=== PATIENT | male | born 2000 | race Caucasian/White ===

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

== ENCOUNTER 2023-02-14 22:10 | Inpatient (IN) ==
[2023-02-14 22:33] LABS: Appearance Urine Clear (Clear); Bilirubin Urine Negative (Negative); Blood Urine Negative (Negative); Color Urine Yellow; Glucose Urine UA Negative (Negative); Ketones Urine Negative (Negative); Leukocyte Esterase Urine Negative (Negative); Nitrite Urine Negative (Negative); Protein Urine Negative (Negative); Specific Gravity Urine 1.008 (1.000-1.030); Urobilinogen Urine Negative (Negative); pH Urine 6.5 (4.5-7.5)
--- NOTE | 2023-02-14 22:36 | Emergency Department Note ---
Impression & Plan Anxiety and depression, Autism spectrum disorder ED Provider Note NAME: ROMANA PEACOCK AGE: 23 SEX: M : 2000 ARRIVES VIA: Walk-In INFORMANT: Patient, ED PROVIDER(S): Moises Galan MD CHIEF COMPLAINT: Depressed mood, suicidal ideation MEDICAL DECISION MAKING: Patient presents due to concern for depressed mood and suicidal ideation with a plan to possibly hang himself. Blood work was obtained patient was he medically cleared referrals and the patient was admitted to 3 S. Patient had already received his Abilify prior to arrival does not require any additional meds this evening. Discussion w/ other healthcare providers: GEN with case management Prior /Outside records reviewed: I reviewed a primary care visit from September 06, 2021 from Brant Amaral. Patient does have a known history of autism spectrum disorder anxiety depression and ADHD. Differential diagnosis: Mood disorder, infection, hypoglycemia, electrolyte abnormalities, dehydration, medication side effect among others were considered. Diagnostics, as interpreted by me: ECG: None Medical decision rules: Suicide risk severity score Imaging studies: None HPI: Patient presents with family member due to concern for suicidal ideation with plan. The patient has had thoughts of self-harm including potentially hanging himself. The patient did recently turning 23 has had some alcohol this evening. Patient denies any HI or AVH. Patient is currently compliant with his medications. The patient did take his Abilify this evening. The patient would like inpatient treatment. Patient denies any chest pains or shortness of breath no abdominal pain or nausea vomiting. PAST MEDICAL HISTORY: See Below PAST SURGICAL HISTORY: See Below SOCIAL HISTORY: See Below HOME MEDICATIONS: See Below ALLERGIES: See Below VITALS: See Below PHYSICAL EXAMINATION: GENERAL: NAD, non-toxic. EYE EXAM: Normal conjunctiva. PERRL, no anisocoria and EOM's grossly intact w/o pain. OROPHARYNX: Moist mucus membranes, grossly normal dentition. NECK: Supple, no nuchal rigidity, no adenopathy, non-tender. No signs of meningismus. FROM of the neck with good chin to chest and neck extension. No stridor. LUNGS: Clear to auscultation. Normal chest wall mechanics. HEART: NSR, no MRG. ABDOMEN: Abdomen soft, non-tender, no masses, no rebound or guarding. BACK: No CVA TTP. SKIN: No rashes and no bruising. UPPER EXTREMITIES: Upper extremities are grossly normal. LOWER EXTREMITIES: Grossly normal, no edema. NEURO EXAM: A&O x3, cranial nerves II-XII grossly intact, normal speech, moves all 4 extremities. Psych: Positive SI with plan denies HI or AVH. Past Med/Surg History Medical History Depression Autism Surgical History History of lingual frenotomy History of wisdom tooth extraction, class I edentulism Family History Father Hypertension Dyslipidemia Mother Asthma Other Myocardial infarction Denies family history of Ovarian cancer Prostate cancer Breast cancer Colorectal cancer Social History Smoking Status: Current every day smoker Tobacco Type: Cigarettes Second Hand Exposure: No; Hx Alcohol Use: No Hx Substance Use: Yes (PRN prescribed) Prescribed Medications: Marijuana Preferred Language: Faroese Communication Ability: Effective Visual Impairment: Limited Hearing Ability: Normal Lock Installer Required: No Beliefs That Will Affect Care: None marital status: Single Current Living Situation: Family Current Living Situation Comment: parents and sister current occupational status: unemployed Feels Safe at Home: Yes Childhood Exposure to Second-Hand Smoke: Yes Diet: regular Dental Care, Regularly: Yes Physical Activity Frequency: 3-4 Times per Week Physical Activity Frequency Comment: biking and walking Seatbelt Use: always Sunscreen Use: Yes (sometimes) Gender Identity: Male Assistive Devices: Glasses Allergies Allergies Allergy/AdvReac Type Severity Reaction Status Date / Time No Known Allergies Allergy Verified 02/14/23 23:55 Home Meds Home Medications Medication Instructions Recorded Confirmed venlafaxine 75 mg capsule,extended 75 mg PO DAILY 12/26/22 02/14/23 release 24 hr bupropion HCl 150 mg tablet,12 hr 150 mg PO DAILY 02/14/23 02/14/23 sustained-release lamotrigine 25 mg tablet (Lamictal) 50 mg DAILY 02/14/23 02/15/23 aripiprazole 5 mg tablet See Rx Instructions .Route .COMPLEX 02/15/23 02/15/23 dextroamphetamine-amphetamine ER 10 mg PO DAILY 02/15/23 02/15/23 10 mg 24hr capsule,extend release (Adderall XR) Results & Data (ED) Vital Signs Vital Signs - 24 hr 02/14/23 22:12 Temperature 36.8 C Temperature Source Temporal Artery Scan Pulse Rate 119 H Pulse Rhythm Regular Pulse Strength Normal Respiratory Rate 20 Respiratory Effort / Characteristics Non-Labored Spontaneous Respiratory Depth Normal Blood Pressure 144/86 H Blood Pressure Mean 105 Blood Pressure Position Sitting Pulse Oximetry 100 Oxygen Delivery Method Room Air Sepsis Recent Fever Within 48 Hours No Sepsis New/Unexplained Change in Mental Status No Sepsis Action Taken by Nursing No Action Required Home Medications Current Medication List: was personally reviewed by me Laboratory Data Attestation: I reviewed the patient's lab results. 02/14/23 22:35 02/14/23 22:35 Lab Results 02/14/23 02/14/23 02/14/23 Range/Units 22:20 22:33 22:35 WBC 6.67 (4.8-10.8) K/ul RBC 5.04 (4.70-6.10) M/uL Hgb 15.8 (14.0-18.0) g/dl Hct 44.3 (42.0-52.0) % MCV 87.9 (80.0-100.0) fL MCH 31.3 (25.0-34.0) pg MCHC 35.7 (32.0-36.0) g/dL RDW Std Deviation 36.7 (36.4-46.3) fL RDW Coeff of Shantell 11.5 (11.5-14.5) % Plt Count 263 (130-400) K/uL MPV 9.6 (9.4-12.4) fL Immature Gran % (Auto) 0.3 % Neut % (Auto) 60.6 % Lymph % (Auto) 29.5 % Ada % (Auto) 6.6 % Eos % (Auto) 2.4 % Baso % (Auto) 0.6 % Neut # (Auto) 4.04 (1.40-6.50) K/uL Lymph # (Auto) 1.97 (1.20-3.40) K/uL Ada # (Auto) 0.44 (0.11-0.59) K/uL Eos # (Auto) 0.16 (0.00-0.50) K/uL Baso # (Auto) 0.04 (0.00-0.20) K/uL Immature Gran # (Auto) 0.02 (0.01-0.20) K/uL Sodium 140 (136-145) mmol/L Potassium 3.5 (3.5-5.1) mmol/L Chloride 105 (98-107) mmol/L Carbon Dioxide 28 (21-32) mmol/L Anion Gap 7 (3-11) BUN 10 (6-23) mg/dl Creatinine 0.97 (0.6-1.4) mg/dl Est Cr Clr Drug Dosing 124.4 ml/min Est GFR ( Amer) 128.8 ml/min Est GFR (Non-Af Amer) 111.1 ml/min BUN/Creatinine Ratio 10.3 (10-20) Glucose 110 H (70-99(Fasting)) mg/dl Calcium 9.5 (8.6-10.3) mg/dl Total Bilirubin 0.5 (0.2-1.0) mg/dl AST 16 (13-39) U/L ALT 14 (7-52) U/L Alkaline Phosphatase 86 (34-104) U/L Total Protein 7.5 (6.0-8.3) gm/dl Albumin 5.0 (3.4-5.0) gm/dl Globulin 2.5 (2.5-4.0) gm/dl Albumin/Globulin Ratio 2.0 (0.9-2) TSH 3.173 (0.300-4.500) uIu/ml Urine Color Yellow Urine Appearance Clear (Clear) Urine pH 6.5 (4.5-7.5) Ur Specific [place] 1.008 (1.000-1.030) Urine Protein Negative (Negative) Urine Glucose (UA) Negative (Negative) Urine Ketones Negative (Negative) Urine Blood Negative (Negative) Urine Nitrite Negative (Negative) Urine Bilirubin Negative (Negative) Urine Urobilinogen Negative (Negative) Ur Leukocyte Esterase Negative (Negative) Salicylates < 3.0 L (3.0-30) mg/dl Urine Opiates Screen Neg (Neg) Ur Methadone, Qual Neg (Neg) Acetaminophen < 3 L (10-30) ug/ml Urine Barbiturates Neg (Neg) Ur Phencyclidine (PCP) Neg (Neg) U Amphetamin/Meth Scrn Neg (Neg) MDMA (Ecstasy) Screen Neg (Neg) U Benzodiazepines Scrn Neg (Neg) Ur Cocaine Metabolite Neg (Neg) U Marijuana (THC) Screen Neg (Neg) Ethyl Alcohol mg/dL < 10.0 (<10.0) mg/dl SARS-CoV-2, RNA, NAAT NEGATIVE (NEGATIVE) Administered Medications Amphetamine/Dextroamphetamine (Dextroamphetamine/Amphetamine Er 10 Mg Cap) 10 mg PO DAILY [facility] Stop: 03/01/23 10:29 Last Admin: 02/15/23 10:55 Dose: 10 mg Documented By: EVERETT Lamotrigine (Lamotrigine 25 Mg Tab) 50 mg PO DAILY [facility]; Protocol Stop: 03/17/23 10:14 Last Admin: 02/15/23 11:52 Dose: 50 mg Documented By: EVERETT Miscellaneous (Remove Nicoderm Patch) 1 each N/A DAILY@0859 [facility] Stop: 03/17/23 08:58 Last Admin: 02/15/23 09:13 Dose: 1 each Documented By: EVERETT Nicotine (Nicotine 21 Mg/24 Hr Tdsy) 21 mg TD QAM [facility] Stop: 03/17/23 08:59 Last Admin: 02/15/23 09:13 Dose: 21 mg Documented By: EVERETT Nicotine Polacrilex (Nicotine Polacrilex 2 Mg Gum) 1 - 2 piece MT PRN PRN PRN Reason: cravings Stop: 03/17/23 09:08 Last Admin: 02/15/23 17:37 Dose: 2 piece Documented By: Admin: 02/15/23 14:17 Dose: 2 piece Documented By: Admin: 02/15/23 10:10 Dose: 2 piece Documented By: EVERETT Venlafaxine HCl (Venlafaxine Hcl Xr 75 Mg Capxr) 75 mg PO DAILY [facility] Stop: 03/17/23 10:09 Last Admin: 02/15/23 11:52 Dose: 75 mg Documented By: EVERETT Discontinued Medications Nicotine (Nicotine 21 Mg/24 Hr Tdsy) 21 mg TD NOW STA Stop: 02/15/23 00:49 Last Admin: 02/15/23 00:57 Dose: 21 mg Documented By: DEREK Discharge Plan Visit Data Chief Complaint: Mental Health Evaluation Stated Complaint: SUICIDAL THOUGHTS ED Provider: Moises Galan Discharge Problem: Anxiety and depression, Autism spectrum disorder Patient Disposition: Admitted As Inpatient Discharge Instructions Interventions: ED Discharge Assessment Last Done: 02/15/23 02:05
[2023-02-14 22:53] LABS: Basophils # (auto) 0.04 K/uL (0.00-0.20); Basophils % (auto) 0.6 %; Eosinophils # (auto) 0.16 K/uL (0.00-0.50); Eosinophils % (auto) 2.4 %; Hematocrit (blood only) 44.3 % (42.0-52.0); Hemoglobin 15.8 g/dl (14.0-18.0); Immature Granulocytes # (auto) 0.02 K/uL (0.01-0.20); Immature Granulocytes % (auto) 0.3 %; Lymphocytes # (auto) 1.97 K/uL (1.20-3.40); Lymphocytes % (auto) 29.5 %; Mean Corpuscular Hemoglobin 31.3 pg (25.0-34.0); Mean Corpuscular Hgb Conc 35.7 g/dL (32.0-36.0); Mean Corpuscular Volume 87.9 fL (80.0-100.0); Mean Platelet Volume 9.6 fL (9.4-12.4); Monocytes # (auto) 0.44 K/uL (0.11-0.59); Monocytes % (auto) 6.6 %; Neutrophils # (auto) 4.04 K/uL (1.40-6.50); Neutrophils % (auto) 60.6 %; Platelet Count 263 K/uL (130-400); RDW Coefficient of Variation 11.5 % (11.5-14.5); RDW Standard Deviation 36.7 fL (36.4-46.3); Red Blood Count 5.04 M/uL (4.70-6.10); White Blood Count 6.67 K/ul (4.8-10.8)
[2023-02-14 23:03] LABS: Amphetamines+Metham, Urine Neg (Neg); Barbiturates, Urine Neg (Neg); Benzodiazepine, Urine Neg (Neg); Cocaine, Urine Neg (Neg); MDMA (Ecstacy), Urine Neg (Neg); Marijuana, Urine Neg (Neg); Methadone, Urine Neg (Neg); Opiate, Urine Neg (Neg); Phencyclidine, Urine Neg (Neg)
[2023-02-14 23:10] LABS: BUN Creatinine Ratio 10.3 (10-20); Bilirubin,Total 0.5 mg/dl (0.2-1.0); Calcium 9.5 mg/dl (8.6-10.3); Creatinine Clr Calc Pharmacy 124.4 ml/min; Est GFR (African American) 128.8 ml/min; Est GFR (Non-African American) 111.1 ml/min; Globulin 2.5 gm/dl (2.5-4.0); Potassium 3.5 mmol/L (3.5-5.1); Total Protein 7.5 gm/dl (6.0-8.3)
[2023-02-14 23:11] LABS: Acetaminophen < 3 ug/ml (10-30); Salicylate < 3.0 mg/dl (3.0-30)
[2023-02-14 23:24] LABS: Thyroid Stimulating Hormone 3.173 uIu/ml (0.300-4.500)
[2023-02-15] MEDS ORDERED: NICOTINE 21 MG/24 HR TDSY TD STA (00:48)
[2023-02-15] MEDS ORDERED: BISMUTH SUBSALICYLATE LIQD 236 ML PO PRN (02:36)
[2023-02-15] MEDS ORDERED: hydrOXYzine HCl 25 MG TAB PO PRN (02:36)
[2023-02-15] MEDS ORDERED: MAGNESIUM HYDROXIDE SUSP 30 ML UDC PO PRN (02:36)
[2023-02-15] MEDS ORDERED: SODIUM CHLORIDE 0.65% NA SOLN 45 ML (OCEAN) PRN (02:36)
[2023-02-15] MEDS ORDERED: ALUMINUM/MAGNESIUM SUSP 30 ML UDC PO PRN (02:36)
[2023-02-15] MEDS ORDERED: ACETAMINOPHEN 325 MG TAB PO PRN (02:36)
[2023-02-15] MEDS: NICOTINE 21 MG/24 HR TDSY TD SCH (09:13)
[2023-02-15] MEDS: NICOTINE POLACRILEX 2 MG GUM MT PRN ×3 (10:10→17:37)
[2023-02-15] MEDS: DEXTROAMPHETAMINE/AMPHETAMINE ER 10 MG CAP PO SCH (10:55)
--- NOTE | 2023-02-15 11:21 | History & Physical ---
Date of Service February 15, 2023 Impression / Recommendations Impression 23 yo male with a history of depression, primarily in response to social isolation from longstanding autism diagnosis. He was recently started on a trial of Lamictal with a plan to taper Abilify which he has probably taken for at least 5 years and retrial of stimulant. Venlafaxine taper reportedly halted in favor of ongoing adjustment of Wellbutrin. Overall, I spent a total of 58 minutes with this case, including review of chart, review of records, direct evaluation of the patient, counseling the patient, ordering medication, coordination with nursing, risk assessment, and documentation. (1) Autism spectrum disorder: (2) ADHD: (3) Major depression, recurrent: Plan The patient was admitted to the [facility] ([facility] unit) on q15 min checks (behavioral with suicide precautions) for safety. The patient will participate in group, recreational, and milieu therapies and will be offered additional individual and family sessions as clinically appropriate. The patient desires to continue his current medication and voiced that although mother not official guardian would like her input on any changes. Given time this am, will only receive Adderall XR 10 mg this am rather than the Adderall XR 10 mg qam and Adderall 5 mg qafternoon (prescribed 02/14 but not yet started as outpatient). His Abilify dose is currently 2.5 mg am and 5 mg hs, will continue hs dose with plan to expeditite taper since inpatient Lamictal 50 mg is too early to titrate I'd favor further decrease in venlafaxine XR in favor of Wellbutrin titration but will defer to Dr. Peralta as [facility] clinician. Currently awaiting input from mother and Dr. Peralta may have access to records despite holiday. Inventory Assets Strengths: voluntary, foley with mother Needs: improve coping skills and social activities. Suicide Risk Level Suicide Risk Level: High-Moderate (q15 min suicide checks) Risk Factors Assessment Male: Yes : Yes Do You Have Access To A Gun?: No Mental Health Diagnoses: Yes Substance Use Disorders: No Previous Attempt: No Previous Psychiatric Hospitalization: Yes Protective Factors Assessment Employed: No Supportive Family: Yes Good Rapport with Provider: Yes Psychiatric History Identifying Data ROMANA PEACOCK is a 23-year-old M who currently lives in [place] with family, has a history of autism spectrum disorder (ASD), ADHD, depressive and anxiety disorders, and was admitted on 02/15/23 01:37 on a 201 voluntary commitment for SI. Chief Complaint "I just feel down." History of Present Illness Patient appears withdrawn with minimal eye contact. He reports an overall increase in suicidal thoughts since April when he thought about leaving his house and crashing the car. He was hospitalized last month at the [facility] and recalls feeling somewhat unsafe there due to other patient's fighting. He denies sensory concerns and did not elablorate on other symptoms related to his autism other than it is difficult to make friends. His high school friends won't respond to his messages. He used to work for [employer] but didn't like it and seems to have limited interests at home. His outpatient prescriber (Chantale Zaragoza) has continued to adujust his outpatient medications. He denies medication related side effects other than weight gain from Abilify. He denies worsening of mood on stimulant and identified that "it does help." He will not elaborate further re: his suicidal ideation, states he feels fine here but can't "get out of it at home" if mother at work. His lamical was started around 01/27, no rash and dose was increased as scheduled to 50 mg. He failed venlafaxine taper at [facility]. He is relatively unmotivated, he denied sleep concerns. Past Psychiatric History Previous Psych History: Asperger's (ASD), major depressive disorder, ADHD, anxiety Current Psychiatric Diagnosis: MDD Outpatient Services: [facility], reportedly on waitlist for CM with [facility]. Previous Psych Admissions: [facility] X2 (2017 and 2022) for depression with SI. Do You Have Access To A Gun?: No History of Previous Suicide Attempt: No Past Medication Trials: outpatient provider closed for holiday, per review hospital ED visits/records note: Abilify, bupropion, hydroxyzine, Lexapro, vistaril, Zoloft, prior trial of Adderall XR (2018) Additional Notes: was seen by caridology in past for weight, hypertension (on lisinopril at that time), with cardiac work up. No known cardiac abnormalities/contraindications to stimulant. Past Head Trauma/Neuro History History of Concussion/Seizure: No Allergies Allergy/AdvReac Type Severity Reaction Status Date / Time No Known Allergies Allergy Verified 02/14/23 23:55 Home Medications Medication Instructions Recorded Confirmed Type venlafaxine 75 mg capsule,extended 75 mg PO DAILY 12/26/22 02/14/23 History release 24 hr bupropion HCl 150 mg tablet,12 hr 150 mg PO DAILY 02/14/23 02/14/23 History sustained-release lamotrigine 25 mg tablet (Lamictal) 50 mg DAILY 02/14/23 02/15/23 History aripiprazole 5 mg tablet See Rx Instructions .Route .COMPLEX 02/15/23 02/15/23 History dextroamphetamine-amphetamine ER 10 mg PO DAILY 02/15/23 02/15/23 History 10 mg 24hr capsule,extend release (Adderall XR) Family History Family History of: Doesn't Know Alcohol History Hx of Alcohol Use Over the Past 12 Months: Yes (just turned 23) AUDIT Total Score: 1 Smoking Use Have You Smoked or Used Tobacco Products in the Last 30 Days: Yes tobacco type: cigarettes Smoking Status: Current every day smoker Smoking packs per day: 1 Substance History Hx of Prescription Med Misuse Over the Past 12 Months: No Hx of Over the Counter Med Misuse Over the Past 12 Months: No Hx of Inhalent Misuse Over the Past 12 Months: No Hx of Organic Substance Use Over the Past 12 Months: No Hx of Illegal Substances/Street Drug Use Over Past 12 Months: No Problems as a Result of Past Substance Use: None Identified Personal History Living Arrangements: Home Childhood: 1 younger sister (14) Highest Grade Completed: High School Graduate Employment Status: Unemployed (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 disability) Marital Status: Single Number Of Children: 0 Beliefs That Will Affect Care: None Current Legal Problems: No Hx Traumatic Life Events: No Patient History Medical History Depression Autism Surgical History History of lingual frenotomy History of wisdom tooth extraction, class I edentulism Family History Father Hypertension Dyslipidemia Mother Asthma Other Myocardial infarction Denies family history of Ovarian cancer Prostate cancer Breast cancer Colorectal cancer Social History Smoking Status: Current every day smoker Tobacco Type: Cigarettes Second Hand Exposure: No; Hx Alcohol Use: No Hx Substance Use: Yes (PRN prescribed) Prescribed Medications: Marijuana Preferred Language: Montserratian Communication Ability: Effective Visual Impairment: Limited Hearing Ability: Normal Patient Placement Coordinator Required: No Beliefs That Will Affect Care: None marital status: Single Current Living Situation: Family Current Living Situation Comment: parents and sister current occupational status: unemployed Feels Safe at Home: Yes Childhood Exposure to Second-Hand Smoke: Yes Diet: regular Dental Care, Regularly: Yes Physical Activity Frequency: 3-4 Times per Week Physical Activity Frequency Comment: biking and walking Seatbelt Use: always Sunscreen Use: Yes (sometimes) Gender Identity: Male Assistive Devices: Glasses Review of Systems Review of Systems: All systems reviewed & are unremarkable except as noted in HPI & below Physical Exam Psychiatric: Orientation: alert and oriented x 3 Apperance: appropriately dressed and appropriately groomed Eye Contact: + poor eye contact Motor Behavior: no abnormal motor movements Speech: + abnormal rate/rhythm/volume of speech nonspontaneous Affect: + depressed affect Mood: + depressed mood Thought Process: + concrete thought process Thought Content: reality based without delusions Suicidal Thoughts: denies suicidal plan (on unit) and denies suicidal intent; + reports suicidal thoughts Homicidal Thoughts: denies homicidal thoughts Hallucinations: no auditory hallucinations and no visual hallucinations Cognition: attention grossly intact and language grossly intact Estimated Intelligence: consistent with education level Insight: + limited insight Judgment: + limited judgement Vital Signs (Past 24 Hours): Last Vital Signs Temp 36.6 C 02/15/23 06:25 Pulse 94 H 02/15/23 06:25 Resp 16 02/15/23 06:25 BP 126/70 02/15/23 06:25 Pulse Ox 99 02/15/23 06:25 O2 Del Method Room Air 02/15/23 06:25 Exam Statement: A physical exam was performed in the ED by Dr. Soto for the purposes of medical clearance. I accept that physical as correct and adequate for the purposes of the inpatient physical exam. Results & Data ([facility]) Laboratory Results Laboratory Results - last 24 hr 02/14/23 02/14/23 02/14/23 22:20 22:33 22:35 WBC 6.67 RBC 5.04 Hgb 15.8 Hct 44.3 MCV 87.9 MCH 31.3 MCHC 35.7 RDW Std Deviation 36.7 RDW Coeff of Shantell 11.5 Plt Count 263 MPV 9.6 Immature Gran % (Auto) 0.3 Neut % (Auto) 60.6 Lymph % (Auto) 29.5 [place] % (Auto) 6.6 Eos % (Auto) 2.4 Baso % (Auto) 0.6 Neut # (Auto) 4.04 Lymph # (Auto) 1.97 [place] # (Auto) 0.44 Eos # (Auto) 0.16 Baso # (Auto) 0.04 Immature Gran # (Auto) 0.02 Sodium 140 Potassium 3.5 Chloride 105 Carbon Dioxide 28 Anion Gap 7 BUN 10 Creatinine 0.97 Est Cr Clr Drug Dosing 124.4 Est GFR ( Amer) 128.8 Est GFR (Non-Af Amer) 111.1 BUN/Creatinine Ratio 10.3 Glucose 110 H Calcium 9.5 Total Bilirubin 0.5 AST 16 ALT 14 Alkaline Phosphatase 86 Total Protein 7.5 Albumin 5.0 Globulin 2.5 Albumin/Globulin Ratio 2.0 TSH 3.173 Urine Color Yellow Urine Appearance Clear Urine pH 6.5 Ur Specific [place] 1.008 Urine Protein Negative Urine Glucose (UA) Negative Urine Ketones Negative Urine Blood Negative Urine Nitrite Negative Urine Bilirubin Negative Urine Urobilinogen Negative Ur Leukocyte Esterase Negative Salicylates < 3.0 L Urine Opiates Screen Neg Ur Methadone, Qual Neg Acetaminophen < 3 L Urine Barbiturates Neg Ur Phencyclidine (PCP) Neg U Amphetamin/Meth Scrn Neg MDMA (Ecstasy) Screen Neg U Benzodiazepines Scrn Neg Ur Cocaine Metabolite Neg U Marijuana (THC) Screen Neg Ethyl Alcohol mg/dL < 10.0 SARS-CoV-2, RNA, NAAT NEGATIVE Current Inpatient Medications Current Inpatient Medications: Current Inpatient Medications Acetaminophen (Acetaminophen 325 Mg Tab) 650 mg PO Q4H PRN PRN Reason: Headache or Minor Fever Stop: 03/17/23 02:35 Al Hydrox/Mg Hydrox/Simethicone (Aluminum/Magnesium Susp 30 Ml Udc) 30 ml PO Q4H PRN PRN Reason: GI Upset Stop: 03/17/23 02:35 Amphetamine/Dextroamphetamine (Dextroamphetamine/Amphetamine Er 10 Mg Cap) 10 mg PO DAILY [facility] Stop: 03/01/23 10:29 Last Admin: 12/23/23 10:55 Dose: 10 mg Aripiprazole (Aripiprazole 5 Mg Tab) 5 mg PO HS [facility] Stop: 03/17/23 21:59 Bismuth Subsalicylate (Bismuth Subsalicylate Liqd 236 Ml) 15 ml PO PRN PRN PRN Reason: Loose Stool Stop: 03/17/23 02:35 Bupropion HCl (Bupropion Xl 150 Mg Tabcr) 150 mg PO QAM [facility] Stop: 03/18/23 08:59 Hydroxyzine HCl (Hydroxyzine Hcl 25 Mg Tab) 50 mg PO HSZ PRN PRN Reason: Insomnia Stop: 03/17/23 02:35 Hydroxyzine HCl (Hydroxyzine Hcl 25 Mg Tab) 25 mg PO Q4H PRN PRN Reason: Anxiety Stop: 03/17/23 02:35 Lamotrigine (Lamotrigine 25 Mg Tab) 50 mg PO DAILY [facility]; Protocol Stop: 03/17/23 10:14 Magnesium Hydroxide (Magnesium Hydroxide Susp 30 Ml Udc) 30 ml PO DAILY PRN PRN Reason: Constipation Stop: 03/17/23 02:35 Miscellaneous (Remove Nicoderm Patch) 1 each N/A DAILY@0859 [facility] Stop: 03/17/23 08:58 Last Admin: 02/15/23 09:13 Dose: 1 each Nicotine (Nicotine 21 Mg/24 Hr Tdsy) [facility] Stop: 03/17/23 08:59 Last Admin: 02/15/23 09:13 Dose: 21 mg Nicotine Polacrilex (Nicotine Polacrilex 2 Mg Gum) 1 - 2 piece MT PRN PRN PRN Reason: cravings Stop: 03/17/23 09:08 Last Admin: 02/15/23 10:10 Dose: 2 piece Sodium Chloride (Sodium Chloride 0.65% Na Soln 45 Ml ([place])) 1 - 2 sprays NA PRN PRN PRN Reason: Nasal Dryness/Congestion Stop: 03/17/23 02:35 Venlafaxine HCl (Venlafaxine Hcl Xr 75 Mg Capxr) 75 mg PO DAILY [facility] Stop: 03/17/23 10:09
[2023-02-15] MEDS: lamoTRIgine 25 MG TAB PO SCH (11:52)
[2023-02-15] MEDS: VENLAFAXINE HCL XR 75 MG CAPXR PO SCH (11:52)
[2023-02-15] MEDS ORDERED: ARIPiprazole 5 MG TAB PO SCH (22:00)
[2023-02-16 08:43] LABS: Chol HDL Ratio 3.5 (0-5)
[2023-02-16] MEDS ORDERED: buPROPion XL 150 MG TABCR PO SCH (09:00)
[2023-02-16] MEDS: VENLAFAXINE HCL XR 75 MG CAPXR PO SCH (09:09)
[2023-02-16] MEDS: lamoTRIgine 25 MG TAB PO SCH (09:09)
[2023-02-16] MEDS: DEXTROAMPHETAMINE/AMPHETAMINE ER 10 MG CAP PO SCH (09:09)
[2023-02-16] MEDS: NICOTINE 21 MG/24 HR TDSY TD SCH (09:09)
[2023-02-16] MEDS: NICOTINE POLACRILEX 2 MG GUM MT PRN ×4 (09:14→19:28)
[2023-02-16] MEDS ORDERED: AMPHETAMINE ASP/SULF/DEXTRAMPH ER 20 MG CAP PO ONE (10:04)
--- NOTE | 2023-02-16 10:17 | Psychiatric Progress Note ---
Date of Service February 16, 2023 Impression / Recommendations Impression 23 yo male with a history of depression, primarily in response to social isolation from longstanding autism diagnosis. He was recently started on a trial of Lamictal with a plan to taper Abilify which he has probably taken for at least 5 years and retrial of stimulant. Venlafaxine taper reportedly halted in favor of ongoing adjustment of Wellbutrin. Overall, I spent a total of 58 minutes with this case, including review of chart, review of records, direct evaluation of the patient, counseling the patient, ordering medication, coordination with nursing, risk assessment, and documentation. (1) Autism spectrum disorder: 02/16/23 -Support and encouragement provided during today's individual encounter. -Encouraged to participate in an activity therapies, as tolerated. -Discontinue aripiprazole. The patient signaled strongly that he wants to stop "Abilify" because it causes weight gain, and he is not sure that he sees any benefit from it, in terms of his mood. -Increase Adderall extended release from 10 mg a day to a dose of 20 mg a day. He received 10 mg of Adderall ER this morning, and he will be given the second 10 mg dose as a "now order," and then will begin a 20 mg dose on 1220 5:23 AM. -Continue taper of venlafaxine, currently at 75 mg daily, to a dose of 37.5 mg extended release daily, and observe for withdrawal/cessation effects. -Increase bupropion extended release from 150 mg a day to a dose of 300 mg a day. -Material risk as well as the anticipated benefits of each of the above identified medication changes were reviewed with the patient, and he indicated understanding. Present on Admission?: Yes (2) ADHD: Increased dose of Adderall extended release from 10 mg a day to a dose of 20 mg a day. Mr. Sosa received 10 mg of Adderall ER this morning, and he will be given a second 10 mg dose as a "now" order, and he will then begin a full 20 mg dose in the morning. Present on Admission?: Yes (3) Major depression, recurrent: -Cross titrate Wellbutrin with venlafaxine. Venlafaxine is being tapered, and, effective tomorrow, has been reduced to 37.5 mg daily. We will monitor for cessation effects and, as tolerated, look to discontinuing this medication. Present on Admission?: Yes Plan The patient was admitted to the [facility] ([facility] inpatient mental health unit) on q15 min checks (behavioral with suicide precautions) for safety. The patient will participate in group, recreational, and milieu therapies and will be offered additional individual and family sessions as clinically appropriate. The patient desires to continue his current medication and voiced that although mother not official guardian would like her input on any changes. Given time this am, will only receive Adderall XR 10 mg this am rather than the Adderall XR 10 mg qam and Adderall 5 mg qafternoon (prescribed 02/14 but not yet started as outpatient). His Abilify dose is currently 2.5 mg am and 5 mg hs, will continue hs dose with plan to expeditite taper since inpatient Lamictal 50 mg is too early to titrate I'd favor further decrease in venlafaxine XR in favor of Wellbutrin titration but will defer to Dr. Peralta as [facility] clinician. Currently awaiting input from mother and Dr. Peralta may have access to records despite holiday. Inventory Assets Strengths: voluntary, foley with mother Needs: improve coping skills and social activities. Suicide Risk Level Suicide Risk Level: High-Moderate (q15 min suicide checks) Suicide Risk Level Comments: The patient acknowledges what probably would be best referred to as passive suicidal thoughts as recently as last evening. He qualifies these along the lines of a wish that he was no longer living, but without any active plan or intent. As of today, the patient reports that he is not having suicidal ideations "at this time." I note that he seems to be future oriented. For example, he tells me that he is looking forward to being able to celebrate Flor with his family, although he knows that he will still be hospitalized here on . Also, the patient does not have any history of acts of furtherance. He will remain on high moderate suicide precautions with every 15 minute checks, and is being served by a locked behavioral health unit. Risk Factors Assessment Male: Yes : Yes Do You Have Access To A Gun?: No Mental Health Diagnoses: Yes Substance Use Disorders: No Previous Attempt: No Previous Psychiatric Hospitalization: Yes Protective Factors Assessment Employed: No Supportive Family: Yes Good Rapport with Provider: Yes Interval History Identifying Information Mr. Solis Sosa is a 23-year-old man who is admitted to the [facility] behavioral health unit on 02/15/2023 from home after he presented with suicidal ideations with a plan to hang himself. He has a history of autism spectrum disorder and depression, as well as a history of multiple psychiatric hospitalizations. Chief Complaint "I was having thoughts of suicide last night. I am not having any today." Review of Systems Sleep Information Total Hours of Sleep: 3 Sleep Comments: Admitted to unit atr 0207 and went straight to bed. Meal Information Percent Meal Consumed - Breakfast: 90 Percent Meal Consumed - Lunch: 100 Percent Meal Consumed - Dinner: 100 Subjective Subjective Patient was seen & assessed and interval progress reviewed with nursing staff. The patient's medical record was reviewed, and I met with him individually this morning in order to assess his response to treatment, update his mental status examination, and make any necessary changes in the patient's treatment regimen. The patient began the encounter today by telling me that he is not feeling particularly depressed today (although his affect certainly appears depressed), but that he was feeling depressed yesterday evening and, last night, he had fleeting thoughts of suicide without any specific plan or intent. We discussed these further, the patient said that the thoughts were more along the lines of "I wish I were ." As of this morning, he notes that he is not continuing to experience suicidal thoughts. We discussed his at home, and he notes that during the day, at home, both parents work outside of the home, and his younger sister is at school during the day, so that he is generally alone in the house for most of the day. He notes that he passes the time primarily by either watching television or "on the computer," by which he confirms he means that he is going out on the Internet. Today, he talks about the fact that he is feeling sad that he will be here in the hospital on [place], but believes that his family will help him celebrate Flor when discharged from the hospital. We reviewed his medications in some detail today. Mr. Sosa tells me that he does not wish to take aripiprazole (Abilify) because he believes that it is caused substantial weight gain. After reviewing the risks and the benefits with the patient, we agreed to discontinue aripiprazole (Abilify), currently at 5 mg daily. Make sure the patient was aware that Abilify may be helping with his mood, but he reiterates that he does not wish to gain any more weight. Mr. Sosa notes that he does feel that Adderall, currently Adderall extended release 10 mg daily, is helping him in terms of his mood and his motivations. Furthermore, he tells me that his understanding is that the plan to continue to taper and discontinue venlafaxine (Effexor). However, when his dose was discontinued directly from a dose of 75 mg a day he experienced withdrawal symptoms which included substantially worsening depression and that he generally "felt funny." The patient tells me that he feels that he is tolerating bupropion extended release well at 150 mg a day, and after reviewing potential adverse effects associated with higher dose bupropion ER the patient agreed to a dose increase of bupropion to bupropion XR 300 mg a day. Physical Exam Psychiatric Orientation: alert and oriented x 3 Apperance: appropriately dressed and appropriately groomed (His head is often bowed during today's encounter. Eye Contact: + poor eye contact (He does engage in eye contact more readily towards the end of today's encounter, and held his gaze for longer periods of time.) Motor Behavior: no abnormal motor movements Speech: + abnormal rate/rhythm/volume of speech Rarely spontaneous. Somewhat slowed and soft. A paucity of speech persists. Affect: + depressed affect Depressed Mood: + depressed mood "I am not really depressed today." Thought Process: + concrete thought process The patient's thought processes are generally goal oriented and organized. Thought Content: reality based without delusions Suicidal Thoughts: denies suicidal plan (on unit) and denies suicidal intent; + reports suicidal thoughts The patient reports recent thoughts of suicide that may be referred to his passive. He reports that these thoughts are not accompanied by any plan or intent to act on them, and refers to them as intermittent wishes that he were . As of today's encounter, the patient reports that he is having no thoughts of suicide and is feeling "better." Homicidal Thoughts: denies homicidal thoughts Mr. Sosa reports that he is having no thoughts of causing physical harm to the person or property of others Hallucinations: no auditory hallucinations and no visual hallucinations Cognition: attention grossly intact and language grossly intact Estimated Intelligence: consistent with education level Insight: + limited insight Judgment: + limited judgement Vital Signs (Past 24 Hours) Last Vital Signs Temp 36.6 C 02/16/23 06:33 Pulse 101 H 02/16/23 06:34 Resp 16 02/16/23 06:33 BP 112/58 L 02/16/23 06:34 Pulse Ox 99 02/15/23 06:25 O2 Del Method Room Air 02/15/23 06:25 Mr. Sosa underwent a physical examination by Moises Galan MD in the Emergency Department on 02/14/23. This physical examination has been reviewed and has been accepted for purposes of medical clearance to the behavioral health unit. Results & Data ([facility]) Laboratory Results Laboratory Results - last 24 hr 02/16/23 06:58 Fasting Glucose 104 H Triglycerides 124 Cholesterol 148 LDL Cholesterol, Calc 81 VLDL Cholesterol, Calc 25 HDL Cholesterol 42 Cholesterol/HDL Ratio 3.5 Current Inpatient Medications Current Inpatient Medications: Current Inpatient Medications Acetaminophen (Acetaminophen 325 Mg Tab) 650 mg PO Q4H PRN PRN Reason: Headache or Minor Fever Stop: 03/17/23 02:35 Al Hydrox/Mg Hydrox/Simethicone (Aluminum/Magnesium Susp 30 Ml Udc) 30 ml PO Q4H PRN PRN Reason: GI Upset Stop: 03/17/23 02:35 Amphetamine/Dextroamphetamine (Dextroamphetamine/Amphetamine Er 10 Mg Cap) 10 mg PO DAILY DARIANA Stop: 03/01/23 10:29 Last Admin: 02/16/23 09:09 Dose: 10 mg Bismuth Subsalicylate (Bismuth Subsalicylate Liqd 236 Ml) 15 ml PO PRN PRN PRN Reason: Loose Stool Stop: 03/17/23 02:35 Bupropion HCl (Bupropion Xl 300 Mg Tabcr) 300 mg PO QAM DARIANA Stop: 03/19/23 08:59 Hydroxyzine HCl (Hydroxyzine Hcl 25 Mg Tab) 50 mg PO HSZ PRN PRN Reason: Insomnia Stop: 03/17/23 02:35 Hydroxyzine HCl (Hydroxyzine Hcl 25 Mg Tab) 25 mg PO Q4H PRN PRN Reason: Anxiety Stop: 03/17/23 02:35 Lamotrigine (Lamotrigine 25 Mg Tab) 50 mg PO DAILY DARIANA; Protocol Stop: 03/17/23 10:14 Last Admin: 02/16/23 09:09 Dose: 50 mg Magnesium Hydroxide (Magnesium Hydroxide Susp 30 Ml Udc) 30 ml PO DAILY PRN PRN Reason: Constipation Stop: 03/17/23 02:35 Miscellaneous (Remove Nicoderm Patch) 1 each N/A DAILY@0859 [facility] Stop: 03/17/23 08:58 Last Admin: 02/16/23 09:09 Dose: 1 each Nicotine (Nicotine 21 Mg/24 Hr Tdsy) 21 mg TD QAM [facility] Stop: 03/17/23 08:59 Last Admin: 02/16/23 09:09 Dose: 21 mg Nicotine Polacrilex (Nicotine Polacrilex 2 Mg Gum) 1 - 2 piece MT PRN PRN PRN Reason: cravings Stop: 03/17/23 09:08 Last Admin: 02/16/23 09:14 Dose: 2 piece Sodium Chloride (Sodium Chloride 0.65% Na Soln 45 Ml ([place])) 1 - 2 sprays NA PRN PRN PRN Reason: Nasal Dryness/Congestion Stop: 03/17/23 02:35 Venlafaxine HCl (Venlafaxine Hcl Xr 37.5 Mg Capxr) 37.5 mg PO QAM [facility] Stop: 03/19/23 08:59 Mental Health & Subst Abuse Tx Therapist Name of Therapist: N/A
[2023-02-16] MEDS ORDERED: DEXTROAMPHETAMINE/AMPHETAMINE ER 10 MG CAP PO ONE (11:30)
[2023-02-16] MEDS: hydrOXYzine HCl 25 MG TAB PO PRN (21:28)
[2023-02-17] MEDS ORDERED: AMPHETAMINE ASP/SULF/DEXTRAMPH ER 20 MG CAP PO SCH (09:00)
[2023-02-17] MEDS: VENLAFAXINE HCL XR 37.5 MG CAPXR PO SCH (09:02)
[2023-02-17] MEDS: lamoTRIgine 25 MG TAB PO SCH (09:02)
[2023-02-17] MEDS: NICOTINE 21 MG/24 HR TDSY TD SCH (09:02)
[2023-02-17] MEDS: buPROPion XL 300 MG TABCR PO SCH (09:02)
[2023-02-17] MEDS: NICOTINE POLACRILEX 2 MG GUM MT PRN ×3 (11:05→18:24)
--- NOTE | 2023-02-17 17:15 | Psychiatric Progress Note ---
Date of Service February 17, 2023 Impression / Recommendations Impression 23 yo male with a history of depression, primarily in response to social isolation from longstanding autism diagnosis. He was recently started on a trial of Lamictal with a plan to taper Abilify which he has probably taken for at least 5 years and retrial of stimulant. Venlafaxine taper reportedly halted in favor of ongoing adjustment of Wellbutrin. The patient was able to tolerate reduction of venlafaxine from 75 mg to 37.5 mg without any noted adverse effects. He also reports that he was able to tolerate an increase in his dose of bupropion XL as of 300 mg a day (from a dose of 150 mg a day), and he reports no adverse effects from either of these medications. He does, however, report that he feels that his current dose of Adderall extended release, 20 mg a day, may be too strong, and he said that he would like to have the dose reduced to "the middle ground" between 10 mg a day and 20 mg a day; i.e. 15 mg a day. This was grade 2 and was ordered. (1) Autism spectrum disorder: 02/17/23: -The patient signaled that he feels that he is doing much better, and feels that he is ready or close to being ready for discharge. -He reports that he has had no thoughts of suicide for several consecutive days now, and has had no suicidal plan or intent since early in the admission. -We began considering his community safety plan today, but this will need to be fully developed prior to discharge. -Patient complains of feeling as if he is concentrating "too hard" and attributes this to the increased dose of Adderall extended release. He also reports that, at least last night, he had a poor appetite, although this improved today. We agreed to change his dose of Adderall extended release from milligrams a day to a dose of 15 mg a day, which was the patient's suggestion given his report that he had not responded as well as he would like to have at the dose of 10 mg a day, but feels that it present 20 mg a day is too strong. -The patient's dose of venlafaxine was decreased from 75 mg a day to 37.5 mg a day, effective this morning. The patient tells me that he is not experiencing any termination effects associated from the lower dose. I would recommend an additional 2 or 3 days at a dose of 37.5 mg, and then attempt to discontinue venlafaxine completed as tolerated (this can be done after discharge). -The patient's dose of bupropion XL has been increased from 150 mg a day to a dose of 300 mg a day, effective this morning. The patient says that he has noticed no adverse effects associated with this change, and, in fact, tells me that he "feels better" in terms of his mood. -Mr. Sosa was considerably more personable today, and had much better eye contact than during previous encounters. He also seemed more relaxed, and his affect was clearly brighter. (He laughed twice during our encounter.) 02/16/23 -Support and encouragement provided during today's individual encounter. -Encouraged to participate in an activity therapies, as tolerated. -Discontinue aripiprazole. The patient signaled strongly that he wants to stop "Abilify" because it causes weight gain, and he is not sure that he sees any benefit from it, in terms of his mood. -Increase Adderall extended release from 10 mg a day to a dose of 20 mg a day. He received 10 mg of Adderall ER this morning, and he will be given the second 10 mg dose as a "now order," and then will begin a 20 mg dose on 1220 5:23 AM. -Continue taper of venlafaxine, currently at 75 mg daily, to a dose of 37.5 mg extended release daily, and observe for withdrawal/cessation effects. -Increase bupropion extended release from 150 mg a day to a dose of 300 mg a day. -Material risk as well as the anticipated benefits of each of the above identified medication changes were reviewed with the patient, and he indicated understanding. Present on Admission?: Yes (2) ADHD: Increased dose of Adderall extended release from 10 mg a day to a dose of 20 mg a day. Mr. Sosa received 10 mg of Adderall ER this morning, and he will be given a second 10 mg dose as a "now" order, and he will then begin a full 20 mg dose in the morning. (3) Major depression, recurrent: -Cross titrate Wellbutrin with venlafaxine. Venlafaxine is being tapered, and, effective tomorrow, has been reduced to 37.5 mg daily. We will monitor for cessation effects and, as tolerated, look to discontinuing this medication. Plan The patient was admitted to the [facility]) on q15 min checks (behavioral with suicide precautions) for safety. The patient will participate in group, recreational, and milieu therapies and will be offered additional individual and family sessions as clinically appropriate. The patient desires to continue his current medication and voiced that although mother not official guardian would like her input on any changes. As noted, the patient's dose of Adderall XR was increased to 20 mg a day, but the patient reported loss of appetite for dinner that evening, and, also, he told me that he felt as if 20 mg may be a little bit too strong, given the fact that his concentration now seems to be more assiduous than desired. At his suggestion, it was my agreement, we reduced the dose of Adderall back to 15 mg a day. He tolerated a reduction in his dose of venlafaxine from 75 mg a day to 37.5 mg a day without any noted adverse effects. I would hold him at a dose of 37.5 mg (venlafaxine extended release) for another few days, and then discontinue it completely. He is not currently experiencing any cessation effects. Furthermore, the patient was able to tolerate an increase in his dose of bupropion XR from a dose of 150 mg a day to a dose of 300 mg a day, again without any noted adverse effects. Clearly, the patient has responded to treatment and, and while he is continuing to exhibit symptoms of autism spectrum disorder, his affect is brighter, his reported mood is "much better," and he is now smiling in the milieu, he seems much more relaxed, much more personable, and today was able to laugh out loud on 2 occasions over the course of about 30 minutes. Inventory Assets Strengths: voluntary, foley with mother Needs: improve coping skills and social activities. Suicide Risk Level Suicide Risk Level: High-Moderate (q15 min suicide checks) Suicide Risk Level Comments: The patient now reports that he has not had any suicidal thoughts for "several days," and has not had any suicidal plan or intent for longer than that. He now tells me that he has no suicidal thoughts, no suicidal plan, and no suicidal intent. Furthermore, he convincingly contracts for safety, and today was able to begin to work on his community safety plan, although this will need to be further developed prior to discharge. The impediment to discharge is the fact that seems clear that the patient suicidality and depression seems to be largely linked to the fact that he is left alone at home without any live human contact, and with very little structure. We have been working on aftercare planning for some time now, but the details of this need to be completed in order to mitigate the stress of community reentry. Risk Factors Assessment Male: Yes : Yes Do You Have Access To A Gun?: No Mental Health Diagnoses: Yes Substance Use Disorders: No Previous Attempt: No Previous Psychiatric Hospitalization: Yes Protective Factors Assessment Employed: No Supportive Family: Yes Good Rapport with Provider: Yes Interval History Identifying Information Mr. Solis Sosa is a 23-year-old man who is admitted to the [facility] unit on 02/15/2023 from home after he presented with suicidal ideations with a plan to hang himself. He has a history of autism spectrum disorder and depression, as well as a history of multiple psychiatric hospitalizations. Chief Complaint "I am a lot better. But I think the Adderall is a little too strong now.". Review of Systems Sleep Information Total Hours of Sleep: 8 Sleep Comments: Pt requested PRN Vistaril for sleep. Meal Information Percent Meal Consumed - Breakfast: 10 Percent Meal Consumed - Lunch: 100 Percent Meal Consumed - Dinner: 0 The patient says that at the higher dose of Adderall he does not have much of an appetite. I explained to the patient that this is one of the adverse effects associated with Adderall I also reminded him that he had told me that his concern about aripiprazole had been weight gain, and he agreed that he would feel safe monitoring his appetite over time, rather than focusing on loss of appetite for single meal. Subjective Subjective Patient was seen & assessed and interval progress reviewed with nursing and social work. I also reviewed the patient's medical record, and met individually with the patient in order to assess his current mental status examination, and his progress in treatment, and make any necessary changes in the patient's treatment regimen. The patient began today's meeting by telling me that he is feeling "much better." He adds that although Adderall is "definitely" helping him, he thinks that perhaps the increase in dose from 10 mg a day to a dose of 20 mg a day was "too much." He tells me, with a slight smile, that he feels that he may be concentrating more assiduously than may be necessary. For example, when playing games, he notes that he wins, or does well, but he is worried that he might become tolerant of 20 mg a day of Adderall, and then would have to go to Adderall extended release 30 mg a day. I tried to explain to him that 20 mg a day of Adderall extended release is not a particularly high dose, and I reviewed the recommended dose range for this medication with him. Nevertheless, he tells me that he feels that Adderall 10 mg was not enough, and Adderall 20 mg was possibly too much, so he would refer to "settle" at 15 mg a day. He also tells me that he has not had any suicidal thoughts for several days now, and really feels as if he is getting close to being ready to go home. He has had contact with his parents today, and he told me that his father came in for a visit. His report is that his parents also feel that he is essentially at baseline and ready to go home. I told the patient that I would not disagree with that assessment, but that in order to safely discharge him we we will need to have a solid aftercare plan for him and finalize a number of the details. I reviewed our recommendation that he be referred for various activities during the day in order to structure his time, in order to get him out of the house more often, and in order to allow him to have more frequent contact when his parents are at work, and his sister is at school. Patient acknowledges that he is spending a lot of time on the Internet, sometimes in social media and "group chats," and while he finds this pleasurable, and while he does feel that he is developing an affinity to some of the persons with whom he chats, he recognizes that he also needs to expand his role to include more direct contact with people. He also does not disagree with the recommendation that he find ways of structuring his time alone at home. Furthermore, he tells me that he is again considering looking for work. Physical Exam Psychiatric Orientation: alert and oriented x 3 Apperance: appropriately dressed and appropriately groomed Eye Contact: + poor eye contact Motor Behavior: no abnormal motor movements Speech: + abnormal rate/rhythm/volume of speech Affect: + blunted affect (The patient laughed out loud twice during today's ass essment.) Thought Process: goal directed thought process and + concrete thought process Thought Content: reality based without delusions Suicidal Thoughts: denies suicidal plan (on unit) and denies suicidal intent The patient reports that he has not had any thoughts of suicide for several days now, and contracts for safety. We began formulating a community safety plan for the patient in anticipation of possible discharge over the next several days. He also describes his mood as being "much better." Homicidal Thoughts: denies homicidal thoughts Hallucinations: no auditory hallucinations and no visual hallucinations Cognition: attention grossly intact and language grossly intact Estimated Intelligence: consistent with education level Insight: + limited insight Judgment: + limited judgement Vital Signs (Past 24 Hours) Last Vital Signs Temp 36.5 C 02/17/23 06:31 Pulse 103 H 02/17/23 06:31 Resp 16 02/17/23 06:31 BP 96/59 L 02/17/23 06:31 Pulse Ox 99 02/15/23 06:25 O2 Del Method Room Air 02/15/23 06:25 The physical examination completed by Dr. Moises Galan of the emergency department currently prior to the patient's admission to the behavioral health unit has been reviewed and is approved for the purposes of medical clearance to the behavioral health unit. Results & Data (U) Current Inpatient Medications Current Inpatient Medications: Current Inpatient Medications Acetaminophen (Acetaminophen 325 Mg Tab) 650 mg PO Q4H PRN PRN Reason: Headache or Minor Fever Stop: 03/17/23 02:35 Al Hydrox/Mg Hydrox/Simethicone (Aluminum/Magnesium Susp 30 Ml Udc) 30 ml PO Q4H PRN PRN Reason: GI Upset Stop: 03/17/23 02:35 Amphetamine/Dextroamphetamine (Dextroamphetamine/Amphetamine Er 5 Mg Cap) 15 mg PO DAILY [facility]IA[facility] Stop: 03/04/23 08:59 Bismuth Subsalicylate (Bismuth Subsalicylate Liqd 236 Ml) 15 ml PO PRN PRN PRN Reason: Loose Stool Stop: 03/17/23 02:35 Bupropion HCl (Bupropion Xl 300 Mg Tabcr) 300 mg PO QAM [facility] Stop: 03/19/23 08:59 Last Admin: 02/17/23 09:02 Dose: 300 mg Hydroxyzine HCl (Hydroxyzine Hcl 25 Mg Tab) 50 mg PO HSZ PRN PRN Reason: Insomnia Stop: 03/17/23 02:35 Last Admin: 02/16/23 21:28 Dose: 50 mg Hydroxyzine HCl (Hydroxyzine Hcl 25 Mg Tab) 25 mg PO Q4H PRN PRN Reason: Anxiety Stop: 03/17/23 02:35 Lamotrigine (Lamotrigine 25 Mg Tab) 50 mg PO DAILY [facility]; Protocol Stop: 03/17/23 10:14 Last Admin: 02/17/23 09:02 Dose: 50 mg Magnesium Hydroxide (Magnesium Hydroxide Susp 30 Ml Udc) 30 ml PO DAILY PRN PRN Reason: Constipation Stop: 03/17/23 02:35 Miscellaneous (Remove Nicoderm Patch) 1 each N/A DAILY@[id number] [facility] Stop: 03/17/23 08:58 Last Admin: 02/17/23 09:03 Dose: 1 each Nicotine (Nicotine 21 Mg/24 Hr Tdsy) 21 mg TD QAM [facility] Stop: 03/17/23 08:59 Last Admin: 02/17/23 09:02 Dose: 21 mg Nicotine Polacrilex (Nicotine Polacrilex 2 Mg Gum) 1 - 2 piece MT PRN PRN PRN Reason: cravings Stop: 03/17/23 09:08 Last Admin: 02/17/23 14:52 Dose: 2 piece Sodium Chloride (Sodium Chloride 0.65% Na Soln 45 Ml ([place])) 1 - 2 sprays NA PRN PRN PRN Reason: Nasal Dryness/Congestion Stop: 03/17/23 02:35 Venlafaxine HCl (Venlafaxine Hcl Xr 37.5 Mg Capxr) 37.5 mg PO QAM [facility] Stop: 03/19/23 08:59 Last Admin: 02/17/23 09:02 Dose: 37.5 mg Mental Health & Subst Abuse Tx Therapist Name of Therapist: N/A (2) ADHD Attention deficit-hyperactivity disorder type: predominantly inattentive Qualified Code(s): F90.0 - Attention-deficit hyperactivity disorder, predominantly inattentive type (3) Major depression, recurrent Active/Remission status: in partial remission Qualified Code(s): F33.41 - Major depressive disorder, recurrent, in partial remission
[2023-02-17] MEDS: hydrOXYzine HCl 25 MG TAB PO PRN (21:20)
[2023-02-18] MEDS: lamoTRIgine 25 MG TAB PO SCH (08:27)
[2023-02-18] MEDS: buPROPion XL 300 MG TABCR PO SCH (08:27)
[2023-02-18] MEDS: VENLAFAXINE HCL XR 37.5 MG CAPXR PO SCH (08:28)
[2023-02-18] MEDS: NICOTINE 21 MG/24 HR TDSY TD SCH (08:38)
[2023-02-18] MEDS ORDERED: DEXTROAMPHETAMINE/AMPHETAMINE ER 5 MG CAP PO SCH (09:00)
--- NOTE | 2023-02-18 10:11 | Discharge Summary ---
Date of Service February 18, 2023 History of Present Illness Patient appears withdrawn with minimal eye contact. He reports an overall increase in suicidal thoughts since April when he thought about leaving his house and crashing the car. He was hospitalized last month at the [facility] and recalls feeling somewhat unsafe there due to other patient's fighting. He denies sensory concerns and did not elablorate on other symptoms related to his autism other than it is difficult to make friends. His high school friends won't respond to his messages. He used to work for [employer] but didn't like it and seems to have limited interests at home. His outpatient prescriber (Chantale Zaragoza) has continued to adujust his outpatient medications. He denies medication related side effects other than weight gain from Abilify. He denies worsening of mood on stimulant and identified that "it does help." He will not elaborate further re: his suicidal ideation, states he feels fine here but can't "get out of it at home" if mother at work. His lamical was started around 01/27, no rash and dose was increased as scheduled to 50 mg. He failed venlafaxine taper at [facility]. He is relatively unmotivated, he denied sleep concerns. Physical Exam Psychiatric See admission H&P and DOD assessment. Vital Signs (Past 24 Hours) Last Vital Signs Temp 36.6 C 02/18/23 06:35 Pulse 93 H 02/18/23 06:36 Resp 16 02/18/23 06:35 BP 119/83 02/18/23 06:36 Pulse Ox 99 02/15/23 06:25 O2 Del Method Room Air 02/15/23 06:25 Principal Diagnosis major depressive disorder Psychiatric Data See daily stay summary. In short, safety was maintained and the patient was cooperative with care. Medication changes included d/c of Abilify and Effexor XR in favor of titration of Wellbutrin and Adderall XR and they tolerated this well. Lamictal was continued unchanged with additional titration per outpatient provider. A family session was held with his mother and safety plan was completed prior to discharge. Day of Discharge Assessment Today the patient voices readiness for discharge. They note improvement in mood and deny thoughts to harm self or others. Thoughts remain organized and they are improved from admission. There is no evidence of psychosis. They agree to take mediations as prescribed and keep follow-up appointments. They are stable for discharge to outpatient level of care. 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 Suicide Risk Level Suicide Risk Level Comments: Suicide risk at discharge is deemed low as the patient is no longer requiring 24-hr monitoring, has a safety plan, and is free of suicidal ideation at discharge. Risk Factors Assessment Male: Yes : Yes Do You Have Access To A Gun?: No Mental Health Diagnoses: Yes Substance Use Disorders: No Previous Attempt: No Previous Psychiatric Hospitalization: Yes Protective Factors Assessment Employed: No Supportive Family: Yes Good Rapport with Provider: Yes Tobacco Cessation at Discharge Tobacco Cessation Medication Prescribed at Discharge: Offered & Pt Refused Total Time Total Time Spent: Greater Than 30 Minutes (32 min) Total Time Includes: Examination of the patient, Discharge Planning and Medication Reconciliation Discharge Data Lab Results 02/14/23 02/14/23 02/14/23 22:20 22:33 22:35 WBC 6.67 RBC 5.04 Hgb 15.8 Hct 44.3 MCV 87.9 MCH 31.3 MCHC 35.7 RDW Std Deviation 36.7 RDW Coeff of Shantell 11.5 Plt Count 263 MPV 9.6 Immature Gran % (Auto) 0.3 Neut % (Auto) 60.6 Lymph % (Auto) 29.5 Prentiss % (Auto) 6.6 Eos % (Auto) 2.4 Baso % (Auto) 0.6 Neut # (Auto) 4.04 Lymph # (Auto) 1.97 Prentiss # (Auto) 0.44 Eos # (Auto) 0.16 Baso # (Auto) 0.04 Immature Gran # (Auto) 0.02 Sodium 140 Potassium 3.5 Chloride 105 Carbon Dioxide 28 Anion Gap 7 BUN 10 Creatinine 0.97 Est Cr Clr Drug Dosing 124.4 Est GFR ( Amer) 128.8 Est GFR (Non-Af Amer) 111.1 BUN/Creatinine Ratio 10.3 Glucose 110 H Fasting Glucose Calcium 9.5 Total Bilirubin 0.5 AST 16 ALT 14 Alkaline Phosphatase 86 Total Protein 7.5 Albumin 5.0 Globulin 2.5 Albumin/Globulin Ratio 2.0 Triglycerides Cholesterol LDL Cholesterol, Calc VLDL Cholesterol, Calc HDL Cholesterol Cholesterol/HDL Ratio TSH 3.173 Urine Color Yellow Urine Appearance Clear Urine pH 6.5 Ur Specific Morven 1.008 Urine Protein Negative Urine Glucose (UA) Negative Urine Ketones Negative Urine Blood Negative Urine Nitrite Negative Urine Bilirubin Negative Urine Urobilinogen Negative Ur Leukocyte Esterase Negative Salicylates < 3.0 L Urine Opiates Screen Neg Ur Methadone, Qual Neg Acetaminophen < 3 L Urine Barbiturates Neg Ur Phencyclidine (PCP) Neg U Amphetamin/Meth Scrn Neg MDMA (Ecstasy) Screen Neg U Benzodiazepines Scrn Neg Ur Cocaine Metabolite Neg U Marijuana (THC) Screen Neg Ethyl Alcohol mg/dL < 10.0 SARS-CoV-2, RNA, NAAT NEGATIVE 02/16/23 06:58 WBC RBC Hgb Hct MCV MCH MCHC RDW Std Deviation RDW Coeff of Shantell Plt Count MPV Immature Gran % (Auto) Neut % (Auto) Lymph % (Auto) Prentiss % (Auto) Eos % (Auto) Baso % (Auto) Neut # (Auto) Lymph # (Auto) Prentiss # (Auto) Eos # (Auto) Baso # (Auto) Immature Gran # (Auto) Sodium Potassium Chloride Carbon Dioxide Anion Gap BUN Creatinine Est Cr Clr Drug Dosing Est GFR ( Amer) Est GFR (Non-Af Amer) BUN/Creatinine Ratio Glucose Fasting Glucose 104 H Calcium Total Bilirubin AST ALT Alkaline Phosphatase Total Protein Albumin Globulin Albumin/Globulin Ratio Triglycerides 124 Cholesterol 148 LDL Cholesterol, Calc 81 VLDL Cholesterol, Calc 25 HDL Cholesterol 42 Cholesterol/HDL Ratio 3.5 TSH Urine Color Urine Appearance Urine pH Ur Specific Morven Urine Protein Urine Glucose (UA) Urine Ketones Urine Blood Urine Nitrite Urine Bilirubin Urine Urobilinogen Ur Leukocyte Esterase Salicylates Urine Opiates Screen Ur Methadone, Qual Acetaminophen Urine Barbiturates Ur Phencyclidine (PCP) U Amphetamin/Meth Scrn MDMA (Ecstasy) Screen U Benzodiazepines Scrn Ur Cocaine Metabolite U Marijuana (THC) Screen Ethyl Alcohol mg/dL SARS-CoV-2, RNA, NAAT Hospital Course (1) Autism spectrum disorder: 02/17/23: -The patient signaled that he feels that he is doing much better, and feels that he is ready or close to being ready for discharge. -He reports that he has had no thoughts of suicide for several consecutive days now, and has had no suicidal plan or intent since early in the admission. -We began considering his community safety plan today, but this will need to be fully developed prior to discharge. -Patient complains of feeling as if he is concentrating "too hard" and attributes this to the increased dose of Adderall extended release. He also reports that, at least last night, he had a poor appetite, although this improved today. We agreed to change his dose of Adderall extended release from milligrams a day to a dose of 15 mg a day, which was the patient's suggestion given his report that he had not responded as well as he would like to have at the dose of 10 mg a day, but feels that it present 20 mg a day is too strong. -The patient's dose of venlafaxine was decreased from 75 mg a day to 37.5 mg a day, effective this morning. The patient tells me that he is not experiencing any termination effects associated from the lower dose. I would recommend an additional 2 or 3 days at a dose of 37.5 mg, and then attempt to discontinue venlafaxine completed as tolerated (this can be done after discharge). -The patient's dose of bupropion XL has been increased from 150 mg a day to a dose of 300 mg a day, effective this morning. The patient says that he has noticed no adverse effects associated with this change, and, in fact, tells me that he "feels better" in terms of his mood. -Mr. Sosa was considerably more personable today, and had much better eye contact than during previous encounters. He also seemed more relaxed, and his affect was clearly brighter. (He laughed twice during our encounter.) 02/16/23 -Support and encouragement provided during today's individual encounter. -Encouraged to participate in an activity therapies, as tolerated. -Discontinue aripiprazole. The patient signaled strongly that he wants to stop "Abilify" because it causes weight gain, and he is not sure that he sees any benefit from it, in terms of his mood. -Increase Adderall extended release from 10 mg a day to a dose of 20 mg a day. He received 10 mg of Adderall ER this morning, and he will be given the second 10 mg dose as a "now order," and then will begin a 20 mg dose on 1220 5:23 AM. -Continue taper of venlafaxine, currently at 75 mg daily, to a dose of 37.5 mg extended release daily, and observe for withdrawal/cessation effects. -Increase bupropion extended release from 150 mg a day to a dose of 300 mg a day. -Material risk as well as the anticipated benefits of each of the above identified medication changes were reviewed with the patient, and he indicated understanding. (2) ADHD: Increased dose of Adderall extended release from 10 mg a day to a dose of 20 mg a day. Mr. Sosa received 10 mg of Adderall ER this morning, and he will be given a second 10 mg dose as a "now" order, and he will then begin a full 20 mg dose in the morning. (3) Major depression, recurrent: -Cross titrate Wellbutrin with venlafaxine. Venlafaxine is being tapered, and, effective tomorrow, has been reduced to 37.5 mg daily. We will monitor for cessation effects and, as tolerated, look to discontinuing this medication. Plan The patient was admitted to the [facility] ([facility] mental health unit) on q15 min checks (behavioral with suicide precautions) for safety. The patient will participate in group, recreational, and milieu therapies and will be offered additional individual and family sessions as clinically appropriate. The patient desires to continue his current medication and voiced that although mother not official guardian would like her input on any changes. As noted, the patient's dose of Adderall XR was increased to 20 mg a day, but the patient reported loss of appetite for dinner that evening, and, also, he told me that he felt as if 20 mg may be a little bit too strong, given the fact that his concentration now seems to be more assiduous than desired. At his suggestion, it was my agreement, we reduced the dose of Adderall back to 15 mg a day. He tolerated a reduction in his dose of venlafaxine from 75 mg a day to 37.5 mg a day without any noted adverse effects. I would hold him at a dose of 37.5 mg (venlafaxine extended release) for another few days, and then discontinue it completely. He is not currently experiencing any cessation effects. Furthermore, the patient was able to tolerate an increase in his dose of bupropion XR from a dose of 150 mg a day to a dose of 300 mg a day, again without any noted adverse effects. Clearly, the patient has responded to treatment and, and while he is continuing to exhibit symptoms of autism spectrum disorder, his affect is brighter, his reported mood is "much better," and he is now smiling in the milieu, he seems much more relaxed, much more personable, and today was able to laugh out loud on 2 occasions over the course of about 30 minutes. Mental Health & Subst Abuse Tx Psychiatrist Name of Psychiatrist: [facility] Psychiatrist's Date Of Appointment With Psychiatric Provider: 02/28/22 Time of Appointment with Psychiatrist: 11:00 AM Psychiatric Appointment Comment: [address], [place] [address] Psychiatrist Release of Information: Obtained, Reviewed and Signed Therapist Name of Therapist: N/A Clarification Operator Name of Clarification Operator: Christopher Hilliard Phone Number for Clarification Operator: [phone] Time of Appointment with Clarification Operator: A briefcase sewer should be calling to schedule an intake. Case Management Appointment Comment: Please follow-up directly relating to your referral. Clarification Operator Release of Information: Obtained, Reviewed and Signed Post Discharge Appointments Primary Care Physician Name Of Family Doctor/PCP: [facility] Time of Appointment with PCP: [place] [address] Provider Appointment Comment: Please follow-up as needed. Smoking Cessation Counseling Tobacco Cessation Medication Prescribed at Discharge: Offered & Pt Refused Contact Information Discharge Discharge [address]: [address] [place] [id number] Discharge Plan Discharge Items Patient Disposition: Home - Home Health Services Reason For Visit: MDD, SI Discharge Diagnosis: major depressive disorder Activity: Resume your previous activity Non-emergency contact: Primary Care Provider, Psychiatrist and Alumni Coordinator Call non-emergency contact if: you have any medication questions Follow-up/Referrals: Katherin Leyva MD [Primary Care Provider] - Diet: Regular Addtl Attending Provider Instructions: SPECIAL CARE INSTRUCTIONS: 1. Follow through with your scheduled aftercare appointments. If unable to keep an appointment, please call to reschedule. 2. Take your medication only as prescribed. Medication should not be changed or stopped without the approval of your doctor. In the event of worsening symptoms or concerns about side effects, contact your doctor immediately. 3. Utilize new healthy coping skills, anger management skills, and stress management skills learned during your hospitalization. Journal feelings and process them with a support person. Identify stressors or situations that may result in relapse, deterioration or inappropriate behaviors and develop a plan to deal with those issues. 4. If your coping skills are ineffective and you are in crisis, contact your outpatient providers for direction. If unable to reach your providers, please call the [facility] CRISIS LINE AT , go to the [facility] walk-in center at [address], [address], [place], or go to the closest Emergency Room. 5. Avoid alcohol and un-prescribed drugs. 6. You have been provided with the Mental Health Advance Directives Pamphlet for your review. 7. Your condition is stable for discharge to outpatient level of care, but recovery is an ongoing process. Ifthoughts to harm yourself or others return, follow the safety plan developed during your stay. Planning for a safe return home includes securing weapons. Our treatment team recommends weaponsbe removed from the home until your outpatient provider reassesses your progress. In rare cases where the items themselvescannot be removed, guns and ammunitionshould be secured separatelyand keys stored by a reliable personoutside of the home. If you were admitted on an involuntary commitment, the police or other legal authorities may be involved in this process. AFTERCARE APPOINTMENTS: * Please call your insurance company prior to your scheduled appointment to confirm your aftercare providers are covered. Take your insurance information to your appointments. WHO TO CALL AND WHEN: Medical Emergencies: For questions or emergencies related to your hospital stay, please contact the Inpatient Behavioral Health Unit at [phone]. A home health clinician is on-call 16/09 for the Behavioral Health Unit for emergencies At any time you feel your situation is an emergency, you may also call 911 immediately. Pending Studies at Discharge: No Stand-Alone Forms: My [employer], Smoking Cessation Medications and DC Order Prescriptions: New lamotrigine [Lamictal] 25 mg Tablet 50 mg PO DAILY Qty: 1 0RF bupropion HCl 300 mg Tablet Extended Release 24 Hr 300 mg PO QAM Qty: 30 0RF dextroamphetamine-amphetamine [Adderall XR] 15 mg capsule,extended release 24hr 15 mg PO QAM Qty: 30 0RF Discontinued venlafaxine 75 mg capsule,extended release 24hr 75 mg PO DAILY bupropion HCl 150 mg tablet sustained-release 12 hr 150 mg PO DAILY lamotrigine [Lamictal] 25 mg tablet 50 mg DAILY dextroamphetamine-amphetamine [Adderall XR] 10 mg capsule,extended release 24hr 10 mg PO DAILY aripiprazole 5 mg tablet See Rx Instructions .ROUTE .COMPLEX Rx Instructions: Pt takes 2.5mg in AM and 5mg at HS Discharge Orders: Discharge Order (Routine); Ordered 02/18/23 Ordered By: Kathrin Gambino Admission Data Admit Date/Time: 02/15/23 01:37 Attending Provider: Kathrin Gambino Admit Provider: Kathrin Gambino Primary Care Provider: Katherin Leyva Coding Level of Care Code 34934 D/C day mgmt > 30 min Diagnoses Autism spectrum disorder F84.0 Attention deficit hyperactivity disorder (ADHD), predominantly inattentive type F90.0 Attention deficit-hyperactivity disorder type: predominantly inattentive Recurrent major depressive disorder, in partial remission F33.41 Active/Remission status: in partial remission
== END 2023-02-18 10:52 | disposition home health service (06) | DRG 885 ==
LOC: ED 22:10 → 3S 02-15 01:37

== ENCOUNTER 2023-02-27 21:35 | Inpatient (IN) ==
[2023-02-27 22:52] LABS: Appearance Urine Clear (Clear); Bilirubin Urine Negative (Negative); Blood Urine Trace-intact (Negative); Color Urine Yellow; Glucose Urine UA Negative (Negative); Ketones Urine Trace (Negative); Leukocyte Esterase Urine Negative (Negative); Nitrite Urine Negative (Negative); Protein Urine 1+ (Negative); Specific Gravity Urine >= 1.030 (1.000-1.030); Urobilinogen Urine Positive (Negative)
[2023-02-27 22:54] LABS: Basophils # (auto) 0.02 K/uL (0.00-0.20); Basophils % (auto) 0.4 %; Eosinophils # (auto) 0.14 K/uL (0.00-0.50); Eosinophils % (auto) 2.9 %; Hematocrit (blood only) 46.4 % (42.0-52.0); Hemoglobin 16.4 g/dl (14.0-18.0); Immature Granulocytes # (auto) 0.02 K/uL (0.01-0.20); Immature Granulocytes % (auto) 0.4 %; Lymphocytes # (auto) 0.72 K/uL (1.20-3.40); Lymphocytes % (auto) 14.7 %; Mean Corpuscular Hemoglobin 31.5 pg (25.0-34.0); Mean Corpuscular Hgb Conc 35.3 g/dL (32.0-36.0); Mean Corpuscular Volume 89.2 fL (80.0-100.0); Mean Platelet Volume 9.1 fL (9.4-12.4); Monocytes # (auto) 0.73 K/uL (0.11-0.59); Monocytes % (auto) 14.9 %; Neutrophils # (auto) 3.27 K/uL (1.40-6.50); Neutrophils % (auto) 66.7 %; Platelet Count 212 K/uL (130-400); RDW Coefficient of Variation 11.6 % (11.5-14.5); RDW Standard Deviation 37.6 fL (36.4-46.3)
[2023-02-27 23:00] LABS: Bacteria Urine Negative (Negative); Epithelial Cell Urine 0-5 /lpf (0-5); Mucus Urine Present (None Prsent); RBC Urine 0-4 /hpf (0-4); WBC Urine 0-5 /hpf (0-5)
[2023-02-27 23:11] LABS: Albumin Globulin Ratio 1.8 (0.9-2); BUN Creatinine Ratio 8.3 (10-20); Bilirubin,Total 0.6 mg/dl (0.2-1.0); Calcium 9.7 mg/dl (8.6-10.3); Creatinine Clr Calc Pharmacy 125.7 ml/min; Est GFR (African American) 130.4 ml/min; Est GFR (Non-African American) 112.5 ml/min; Globulin 2.8 gm/dl (2.5-4.0); Potassium 3.3 mmol/L (3.5-5.1); Total Protein 7.8 gm/dl (6.0-8.3)
[2023-02-27 23:25] LABS: Acetaminophen < 3 ug/ml (10-30); Salicylate < 3.0 mg/dl (3.0-30)
[2023-02-27 23:25] LABS: Amphetamines+Metham, Urine Pos (Neg); Barbiturates, Urine Neg (Neg); Benzodiazepine, Urine Neg (Neg); Cocaine, Urine Neg (Neg); MDMA (Ecstacy), Urine Pos (Neg); Marijuana, Urine Neg (Neg); Methadone, Urine Neg (Neg); Opiate, Urine Neg (Neg); Phencyclidine, Urine Neg (Neg)
[2023-02-27 23:26] LABS: Thyroid Stimulating Hormone 1.402 uIu/ml (0.300-4.500)
--- NOTE | 2023-02-27 23:35 | Emergency Department Note ---
History of Present Illness General Chief complaint: Mental Health Evaluation Stated complaint: SUICIDAL Time Seen by Provider: 02/27/23 22:23 Source: patient, RN notes reviewed and old records reviewed (02/15/23-discharge summary from admission for psychiatric illness) Mode of arrival: ambulatory Limitations: no limitations History of Present Illness This patient is a 23-year-old male who comes in after having suicidal ideations. He did leave a note. He thought about putting on something around his neck from the basement. He did not try to hurt himself has been on his meds. He was in the mental health were here about a month ago. Mother says he is been taking his medications, no extra medications, no aspirin or overdose or Tylenol. His sleep is been somewhat decreased. no fever has had a little bit of a cough at times. Home Medications Medication Instructions Recorded Confirmed Type lamotrigine 25 mg tablet (Lamictal) 100 mg DAILY 02/14/23 02/27/23 History bupropion HCl 300 mg 24 hr tablet, 300 mg PO QAM #30 tabs 02/18/23 02/27/23 Rx extended release dextroamphetamine-amphetamine ER 15 mg PO QAM #30 caps 02/18/23 02/27/23 Rx 15 mg 24hr capsule,extend release (Adderall XR) duloxetine 30 mg capsule,delayed 30 mg PO DAILY 02/27/23 02/27/23 History release sprinkle Allergies Allergy/AdvReac Type Severity Reaction Status Date / Time No Known Allergies Allergy Verified 02/27/23 23:10 Past Med/Surg History Medical History Depression Autism Surgical History History of lingual frenotomy History of wisdom tooth extraction, class I edentulism Family History Father Hypertension Dyslipidemia Mother Asthma Other Myocardial infarction Denies family history of Ovarian cancer Prostate cancer Breast cancer Colorectal cancer Social History Smoking Status: Current every day smoker Tobacco Type: Cigarettes Second Hand Exposure: No; Hx Alcohol Use: No Hx Substance Use: Yes (PRN prescribed) Prescribed Medications: Marijuana Preferred Language: Georgian Communication Ability: Effective Visual Impairment: Limited Hearing Ability: Normal Rn Travel Required: No Beliefs That Will Affect Care: None marital status: Single Current Living Situation: Family Current Living Situation Comment: parents and sister current occupational status: unemployed Feels Safe at Home: Yes Childhood Exposure to Second-Hand Smoke: Yes Diet: regular Dental Care, Regularly: Yes Physical Activity Frequency: 3-4 Times per Week Physical Activity Frequency Comment: biking and walking Seatbelt Use: always Sunscreen Use: Yes (sometimes) Gender Identity: Male Assistive Devices: Glasses Review of Systems A total of 10 systems reviewed and were otherwise negative Physical Exam Vital Signs Vital Signs - 24 hr 02/27/23 21:41 Temperature 36.7 C Temperature Source Temporal Artery Scan Pulse Rate 118 H Respiratory Rate 18 Respiratory Effort / Characteristics Non-Labored Spontaneous Respiratory Depth Normal Respiratory Pattern Regular Blood Pressure 142/75 H Blood Pressure Mean 97 Pulse Oximetry 100 Oxygen Delivery Method Room Air Sepsis Recent Fever Within 48 Hours No Sepsis New/Unexplained Change in Mental Status N/A Sepsis Action Taken by Nursing No Action Required General: Well developed well nourished young male who appears in no acute distress, breathing comfortably on room air. Normal speech HEENT: Normal cephalic atraumatic. Pupils are equal round and reactive to light. Extraocular movements are intact. Oropharynx is pink with moist mucous membranes. No swelling of the mouth lips or tongue. Neck: Supple with a midline trachea. No meningeal signs or stiffness, no JVD or bruits. No Stridor. Chest: Clear to auscultation bilaterally. No wheezes or rhonchi. No increased work of breathing. Heart: Regular rate and rhythm without murmurs or gallops. Abdomen: Soft nontender, nondistended without rebound guarding or rigidity. Extremities: No cyanosis clubbing or edema. No calf tenderness or assymetry Spine/Back. Non tender to palpation. No CVA tenderness Skin: Good turgor without rashes. Neurologic exam: Cranial nerves two through 12 are intact. Motor and sensation are intact and symmetrical throughout. Psych: Normal thought process and affect. Has had suicidal ideations Course Administered Medications Discontinued Medications Guaifenesin/Dextromethorphan (Guaifenesin/Dextrom Syrup 100mg/10mg 5ml Udc) 5 ml PO NOW ONE Stop: 01/05/24 00:51 Last Admin: 02/28/23 01:06 Dose: 5 ml Documented By: [facility] Medical Decision Making Differential Diagnosis Depression, electrolyte or metabolic abnormalities, suicidal ideations, toxicologic, metabolic, infectious, COVID Medical Records Attestation: I reviewed the patient's medical records. Home Medications Current Medication List: was personally reviewed by me Laboratory Data Attestation: I reviewed the patient's lab results. 02/27/23 22:30 02/27/23 22:30 Lab Results 02/27/23 02/27/23 Range/Units 22:21 22:30 WBC 4.90 (4.8-10.8) K/ul RBC 5.20 (4.70-6.10) M/uL Hgb 16.4 (14.0-18.0) g/dl Hct 46.4 (42.0-52.0) % MCV 89.2 (80.0-100.0) fL MCH 31.5 (25.0-34.0) pg MCHC 35.3 (32.0-36.0) g/dL RDW Std Deviation 37.6 (36.4-46.3) fL RDW Coeff of Shantell 11.6 (11.5-14.5) % Plt Count 212 (130-400) K/uL MPV 9.1 L (9.4-12.4) fL Immature Gran % (Auto) 0.4 % Neut % (Auto) 66.7 % Lymph % (Auto) 14.7 % Arroyo % (Auto) 14.9 % Eos % (Auto) 2.9 % Baso % (Auto) 0.4 % Neut # (Auto) 3.27 (1.40-6.50) K/uL Lymph # (Auto) 0.72 L (1.20-3.40) K/uL Arroyo # (Auto) 0.73 H (0.11-0.59) K/uL Eos # (Auto) 0.14 (0.00-0.50) K/uL Baso # (Auto) 0.02 (0.00-0.20) K/uL Immature Gran # (Auto) 0.02 (0.01-0.20) K/uL Sodium 139 (136-145) mmol/L Potassium 3.3 L (3.5-5.1) mmol/L Chloride 103 (98-107) mmol/L Carbon Dioxide 27 (21-32) mmol/L Anion Gap 9 (3-11) BUN 8 (6-23) mg/dl Creatinine 0.96 (0.6-1.4) mg/dl Est Cr Clr Drug Dosing 125.7 ml/min Est GFR ( Amer) 130.4 ml/min Est GFR (Non-Af Amer) 112.5 ml/min BUN/Creatinine Ratio 8.3 L (10-20) Glucose 91 (70-99(Fasting)) mg/dl Calcium 9.7 (8.6-10.3) mg/dl Total Bilirubin 0.6 (0.2-1.0) mg/dl AST 16 (13-39) U/L ALT 10 (7-52) U/L Alkaline Phosphatase 89 (34-104) U/L Total Protein 7.8 (6.0-8.3) gm/dl Albumin 5.0 (3.4-5.0) gm/dl Globulin 2.8 (2.5-4.0) gm/dl Albumin/Globulin Ratio 1.8 (0.9-2) TSH 1.402 (0.300-4.500) uIu/ml Urine Color Yellow Urine Appearance Clear (Clear) Urine pH 6.0 (4.5-7.5) Ur Specific [place] >= 1.030 (1.000-1.030) Urine Protein 1+ H (Negative) Urine Glucose (UA) Negative (Negative) Urine Ketones Trace H (Negative) Urine Blood Trace-intact H (Negative) Urine Nitrite Negative (Negative) Urine Bilirubin Negative (Negative) Urine Urobilinogen Positive H (Negative) Ur Leukocyte Esterase Negative (Negative) Urine RBC 0-4 (0-4) /hpf Urine WBC 0-5 (0-5) /hpf Ur Epithelial Cells 0-5 (0-5) /lpf Urine Bacteria Negative (Negative) Urine Mucus Present A (None Prsent) Salicylates < 3.0 L (3.0-30) mg/dl Urine Opiates Screen Neg (Neg) Ur Methadone, Qual Neg (Neg) Acetaminophen < 3 L (10-30) ug/ml Urine Barbiturates Neg (Neg) Ur Phencyclidine (PCP) Neg (Neg) U Amphetamin/Meth Scrn Pos H (Neg) MDMA (Ecstasy) Screen Pos H (Neg) U Benzodiazepines Scrn Neg (Neg) Ur Cocaine Metabolite Neg (Neg) U Marijuana (THC) Screen Neg (Neg) Ethyl Alcohol mg/dL < 10.0 (<10.0) mg/dl SARS-CoV-2, RNA, NAAT NEGATIVE (NEGATIVE) MDM Narrative This patient comes in as described above. He was placed in the mental health [facility] where I saw him, he is cooperative he had suicidal ideations his mother is at the bedside talked her at length. Blood work was obtained and he was medically cleared .he has no significant electrolyte or metabolic abnormality nothing shows acute toxicologic or metabolic abnormality. COVID was negative. He was further evaluated by psychiatric field nurse case manager. He did receive Robitussin DM for his cough. The psychiatric field nurse case manager asked that we do a bio fire due to his cough this is pending. The patient is voluntary and they are evaluating him and going to do a bed search. This is pending. The patient will be signed out at shift change to Dr. Mendoza who will follow-up on this. Impression & Plan Depression, Autism spectrum disorder, Suicidal ideations, Cough Discharge Plan Visit Data Chief Complaint: Mental Health Evaluation Stated Complaint: SUICIDAL ED Provider: Brant Castellanos Discharge Problem: Depression, Autism spectrum disorder, Suicidal ideations, Cough Forms Stand Alone Forms: My [facility], Suicide Prevention Resources Prescriptions Prescriptions: No Action lamotrigine [Lamictal] 25 mg tablet 100 mg DAILY bupropion HCl 300 mg Tablet Extended Release 24 Hr 300 mg PO QAM Qty: 30 0RF dextroamphetamine-amphetamine [Adderall XR] 15 mg capsule,extended release 24hr 15 mg PO QAM Qty: 30 0RF duloxetine 30 mg Capsule, Delayed Rel Sprinkle 30 mg PO DAILY Referrals Referrals: Brant Amaral DO [Primary Care Provider] - Discharge Problem: Depression Qualifiers: Depression Type: unspecified Qualified Code(s): F32.A - Depression, unspecified Cough Qualifiers: Cough type: acute Qualified Code(s): R05.1 - Acute cough
[2023-02-28] MEDS ORDERED: guaiFENesin/DEXTROM SYRUP 100MG/10MG 5ML UDC PO ONE (00:50)
[2023-02-28 01:58] LABS: Adenovirus PCR Not Detected (NotDetected); Bordetella parapertussis PCR Not Detected (NotDetected); Bordetella pertussis PCR Not Detected (NotDetected); Chlamydia pneumoniae PCR Not Detected (NotDetected); Coronavirus 229E PCR Not Detected (NotDetected); Coronavirus CoV-2 (COVID19)PCR Not Detected (NotDetected); Coronavirus HKU1 PCR Not Detected (NotDetected); Coronavirus NL63 PCR Not Detected (NotDetected); Coronavirus OC43PCR Not Detected (NotDetected); Human Metapneumovirus PCR Not Detected (NotDetected); Influenza A PCR Not Detected (NotDetected); Influenza B PCR Not Detected (NotDetected); Mycoplasma pneumoniae PCR Not Detected (NotDetected); Parainfluenza Virus 1 PCR Not Detected (NotDetected); Parainfluenza Virus 2 PCR Not Detected (NotDetected); Parainfluenza Virus 3 PCR Not Detected (NotDetected); Parainfluenza Virus 4 PCR Not Detected (NotDetected); Rhinovirus/Enterovirus PCR Not Detected (NotDetected)
[2023-02-28 01:59] LABS: Respiratory Syncytial VirusPCR DETECTED (NotDetected)
--- NOTE | 2023-02-28 04:43 | Emergency Department Note ---
ED Visit Note Patient signed out to me at change of shift from Dr. Castellanos. Patient medically cleared prior to my signout, please see his note for additional details. In order to help facilitate placement, a bio fire nasal swab has been requested by case management. I was asked to follow this up. BioFire positive for RSV. After this was noted, case management made several attempts to have the patient placed as he and mother desired inpatient mental health treatment. Patient was denied by multiple facilities due to concern for RSV. Case management plan at this time is to wait and contact 3 S. after shift change in the morning. Case signed out to Dr. Costello. .
[2023-02-28] MEDS: DULoxetine HCL 30 MG CAP PO SCH (08:49)
[2023-02-28] MEDS: buPROPion XL 300 MG TABCR PO SCH (08:49)
[2023-02-28] MEDS: lamoTRIgine 100 MG TAB PO SCH (08:49)
[2023-02-28] MEDS ORDERED: [UNRECOGNIZED DRUG - OTHER] PO SCH (09:00)
[2023-02-28] MEDS ORDERED: NON-FORMULARY MEDICATION (Duloxetine 30 mg Capsule, Delayed Rel Sprinkle) PO SCH (09:00)
[2023-02-28] MEDS ORDERED: DEXTROAMPHETAMINE AMPHETAMINE 15 MG PO SCH (09:00)
[2023-02-28] MEDS ORDERED: lamoTRIgine 25 MG TAB PO SCH (09:00)
--- NOTE | 2023-02-28 09:16 | Emergency Department Note ---
ED Visit Note Patient was signed out to me at change of shift by Dr. Mendoza, pending ongoing bed search for inpatient psychiatric admission. Patient is positive for RSV and following discussion with case management patient has been rejected at multiple facilities because of this. Per case management patient will require medical admission secondary to difficulty with placement secondary to RSV infection. Case was therefore discussed with the hospitalist for [facility], Dr. Romero, and the patient was placed for medical admission with plan for psychiatric consultation given suicidal threats. .
[2023-02-28] MEDS ORDERED: POTASSIUM CHLORIDE CRTAB 20 MEQ TABCR PO STA (10:20)
--- NOTE | 2023-02-28 10:30 | History & Physical Report ---
Date of Service February 28, 2023 Assessment & Plan (1) Suicidal ideations: Plan: Occurring 02/27 and left a note, denies suicidal and homicidal thoughts at present. Long psych history - with recent inpatient stay at this facility 02/15- 02/18. Initial plan was for inpatient psych facility, which patient was agreeable to but no available placement given his +RSV. -1:1, sucicide precautions -safe tray -Behavioral health consulted (2) RSV (respiratory syncytial virus infection): Plan: Mild symptoms, on room air -EKG ordered for tachycardia - Isolation precautions, per infection control can be removed 03/07/2023 -Supportive care -Guaifenesin prn for cough (3) Anxiety and depression: Plan: - Continue Bupropion 300mg, Duloxetine 30mg and Lamictal 100mg (4) ADHD: Plan: -Hold Adderall during admission (5) Tobacco abuse: Plan: Reports smoking ~20 cigarettes daily -Nicotine patch order (6) Autism spectrum disorder: Plan Admit: to Med/Surge DVT proh: low risk, encourage ambulation Diet: regular, safe tray Full Code History of Present Illness Chief Complaint: Suicidal Ideations, RSV Primary Care Provider: Brant Amaral, DO 23M with a hx of ASD, ADHD, anxiety and depression brought to the ER by his mother after having suicidal ideation and leaving a note. Patient states that he does not remember having suicidal thoughts or what his plan was because he was drunk but does acknowledge writing the note. Stays he has been drinking to get drunk every night since his last discharge, but this equates to 1-2 drinks of whiskey. Also reports smoking ~20 cigarettes a day, had planned to quit but reports could not afford nicotine gum. Spoke with mother by patient phone while in the room and relays the events of last night, and patient did not deny any of the events. Both mother and patient report that he has been taking his medications at home as prescribed. Also has been dealing with cough for the last few days. Productive, but unsure of color. Does not feel short of breath. Reports generalized body aches. No fevers or chills. Allergies Allergy/AdvReac Type Severity Reaction Status Date / Time No Known Allergies Allergy Verified 02/27/23 23:10 Home Medications Medication Instructions Recorded Confirmed Type lamotrigine 25 mg tablet (Lamictal) 100 mg DAILY 02/14/23 02/27/23 History bupropion HCl 300 mg 24 hr tablet, 300 mg PO QAM #30 tabs 02/18/23 02/27/23 Rx extended release dextroamphetamine-amphetamine ER 15 mg PO QAM #30 caps 02/18/23 02/27/23 Rx 15 mg 24hr capsule,extend release (Adderall XR) duloxetine 30 mg capsule,delayed 30 mg PO DAILY 02/27/23 02/27/23 History release sprinkle Past Med/Surg History Medical History Depression Autism Surgical History History of lingual frenotomy History of wisdom tooth extraction, class I edentulism Family History Father Hypertension Dyslipidemia Mother Asthma Other Myocardial infarction Denies family history of Ovarian cancer Prostate cancer Breast cancer Colorectal cancer Social History Smoking Status: Current every day smoker Tobacco Type: Cigarettes Second Hand Exposure: No; Hx Alcohol Use: No Hx Substance Use: Yes (PRN prescribed) Prescribed Medications: Marijuana Preferred Language: Azeri Communication Ability: Effective Visual Impairment: Limited Hearing Ability: Normal Imaging Aide Required: No Beliefs That Will Affect Care: None marital status: Single Current Living Situation: Family Current Living Situation Comment: parents and sister current occupational status: unemployed Feels Safe at Home: Yes Childhood Exposure to Second-Hand Smoke: Yes Diet: regular Dental Care, Regularly: Yes Physical Activity Frequency: 3-4 Times per Week Physical Activity Frequency Comment: biking and walking Seatbelt Use: always Sunscreen Use: Yes (sometimes) Gender Identity: Male Assistive Devices: Glasses Review of Systems Review of Systems: All systems reviewed & are unremarkable except as noted in Subjective Physical Exam Physical Exam: General:NAD, dressed in scrubs, sitting in bed, VS as above Resp: normal respiratory effort, lungs clear to auscultation CV: RRR, no murmur, Abd: non tender, no hepatosplenomegaly Extremities: Moves all extremities, no edema Neuro: A&O x3, limited eye contact, but answers questions appropriately Results & Data Results & Data Vital Signs (Past 12 Hours) Vital Signs Pulse Resp BP Pulse Ox O2 Del Method 02/28/23 06:27 113 H 18 137/83 95 Room Air Laboratory Results CBC, chemistry, UDS and UA reviewed from ER Supervising Physician Co-Signing Physician Notes Patient seen and examined, chart reviewed, case discussed with Irina Moser PA-C and I agree with the assessment and plan as above except as otherwise noted Labs and images reviewed 23-year-old male with a history of anxiety/depression/SI who was brought in to the ER by his mother with suicidal ideation leaving a suicidal note. Patient denies SI at time of bedside assessment, but does endorse worsening depression and that he drinks daily to distract himself and the note he attributes it to drinking. He notes that he has been drinking every night since discharge 02/18/2023, generally 1-2 drinks of whiskey per evening. He has not had any withdrawal symptoms and no shakiness during the day and no history of seizure. Suicidality has been increasing in the prior few months, declines to give additional history at time of assessment. Patient is RSV positive in the ER and will remain on isolation precautions until 03/07 per infection control; he is admitted to medical service for observation pending ability to move to U level of care. Lungs are clear, patient is with cough and sinus congestion. Mild int ermittent tachycardia for which an EKG is pending, suspect sinus reactive to acute illness. No leg swelling, no shortness of breath, no pleuritic pain. Review of labs show no evidence of metabolic derangements other than mild hypokalemia which is repleted. He does not have any metabolic acidosis at time of admission. Urine tox is negative for salicylates and Tylenol, amphetamine appropriately positive with history of Adderall use and MDMA is likely cross positive. No other positive findings on tox screen. Continue bupropion/duloxetine/lamotrigine. Adderall held while inpatient. Agree with admission and conservative symptomatic treatment for RSV and transition to BHU when able. Patient is not able to leave AMA at this time, psych/likely liaison consulted, continue one-to-one and safe tray. Agree with assessment and management as above PG Care Time/CCT Total # of Minutes Spent Total Time Spent with Patient: Total time spent is greater than 50% in coordination of care (as documented) at patient's floor/unit and/or counseling patient: Coding Level of Care Code 22852 INT INP/OBS CARE MIN Diagnoses Suicidal ideations R45.851 RSV (respiratory syncytial virus infection) B33.8 Anxiety and depression F41.9; F32.9 Attention deficit hyperactivity disorder (ADHD), predominantly inattentive type F90.0 Attention deficit-hyperactivity disorder type: predominantly inattentive Tobacco abuse Z72.0 Autism spectrum disorder F84.0 (4) ADHD Attention deficit-hyperactivity disorder type: predominantly inattentive Qualified Code(s): F90.0 - Attention-deficit hyperactivity disorder, predominantly inattentive type
[2023-02-28] MEDS ORDERED: guaiFENesin 600 MG TABCR PO PRN (10:44)
[2023-02-28] MEDS: NICOTINE 14 MG/24 HR PATCH TD SCH (11:11)
[2023-02-28] MEDS ORDERED: ACETAMINOPHEN 325 MG TAB PO PRN (11:38)
[2023-02-28] MEDS ORDERED: POLYETHYLENE (MIRALAX) 17 GM PACK PO PRN (11:38)
--- NOTE | 2023-02-28 11:40 | Electrocardiogram Report ---
Test Reason : Blood Pressure : / mmHG Vent. Rate : 087 BPM Atrial Rate : 087 BPM P-R Int : 156 ms QRS Dur : 082 ms QT Int : 314 ms P-R-T Axes : 081 072 042 degrees QTc Int : 377 ms Normal sinus rhythm Normal ECG No previous ECGs available Confirmed by Rocky Michael ([id number]) on 02/28/2023 11:40:08 AM Referred By: REFERRED SELF Confirmed By:Rocky Michael
--- NOTE | 2023-02-28 17:00 | Psychiatric Consultation ---
Date of Consultation February 28, 2023 Impression / Recommendations Impression 23 y/o man with ASD, MDD, ADHD, and alcohol abuse who presented to the ED 10 days following discharge from the [facility] psychiatric service. He left a note explicitly referencing killing himself that he now says wasn't a suicide note. He has been getting drunk nightly and says this (somehow) accounts for the note. Although he currently denies suicidal thoughts, he does acknowledge depressed mood. Discussed recently-started duloxetine. Pt attributes no adverse effects to it, but he doesn't really acknowledge taking it, either. Discussed known interaction risk with alcohol as well as the depressant effect of alcohol. Pt minimizes alcohol use. It's challenging to tell to what degree pt's disengagement and blunted affect are attributable to depression, ASD, or upper respiratory syndrome, but it seems reasonable to conclude that all could be contributors. Based on the initial presentation, it does not seem appropriate for pt to return home at this time. Overall I spent a total of 97 minutes on the floor for this consultation assessment including review of chart records, review of test results, direct evaluation of the patient [id number], counseling the patient, medication education with the patient, risk assessment, discussion with the psychiatric liaison nurse, and documentation in the electronic health record. 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 Consult is by the hospitalist service for "SI". Chief Complaint "I'm sick". History of Present Illness As part of a thorough review of the available medical records, I have read and and incorporated into my assessment the following note by the ED physician: "This patient is a 23-year-old male who comes in after having suicidal ideations. He did leave a note. He thought about putting on something around his neck from the basement. He did not try to hurt himself has been on his meds. He was in the mental health were here about a month ago. Mother says he is been taking his medications, no extra medications, no aspirin or overdose or Tylenol. His sleep is been somewhat decreased. no fever has had a little bit of a cough at times." the following note by the hospitalist: "23M with a hx of ASD, ADHD, anxiety and depression brought to the ER by his mother after having suicidal ideation and leaving a note. Patient states that he does not remember having suicidal thoughts or what his plan was because he was drunk but does acknowledge writing the note. Stays he has been drinking to get drunk every night since his last discharge, but this equates to 1-2 drinks of whiskey. Also reports smoking ~20 cigarettes a day, had planned to quit but reports could not afford nicotine gum. Spoke with mother by patient phone while in the room and relays the events of last night, and patient did not deny any of the events. Both mother and patient report that he has been taking his medications at home as prescribed. Also has been dealing with cough for the last few days. Productive, but unsure of color. Does not feel short of breath. Reports generalized body aches. No fevers or chills. " the following note by the ED psychiatric catalytic case operator: "Met with Solis to complete brief mental health assessment. He is accompanied by his mother, Norma and she remains in the room with Solis's consent. He appeared reluctant to share why he is here and responds "I don't know". Mom responded that he is suicidal and "wrote a note this time". Solis admitted that he was going to find something in his basement to use to kill himself, like a cord. Solis was recently inpatient on from 02/15- 02/18 and mom states, "I think he got discharged too early". Solis does have cold sx, cough, congestion. Mom did a rapid test on him at home which was negative for COVID. Respiratory panel to be ordered. Solis did write a suicide note, its contents are listed below: "I am killing myself reasons lonely everyone lies to me no friends never had girlfriend family mad at me im a failure I hate being autistic will never be able to have family I hate sober Everyone hates me they all lie to me cant work Please give gabbi all my money and everything else she is all I care about even though she hates me I'm sorry gabbi body will be in basement""" and the following note by the psychiatric liaison nurse: "Met with Solis bedside to complete mental health evaluation. Solis stated "I don't remember" when asked why her was brought to ED. Mother stated "he is suicidal." Solis stated "no, I'm not. I want to go home." Per mother, Solis is diagnosed with MDD, Anxiety, and is on the autism spectum. Mother stated he has been experiencing thoughts of suicide "on and off" which he stated have worsened since the new year. Solis confirmed increase in SI over the pa st few days. He is unable to identify a specific stressor or trigger. He stated his sleep has "not been good lately." He reports decrease in appetite. Solis stated he self injured on of last week and "I never want to do it again." Solis showed this catalytic case operator several healed superficial scratches on his arm. Mother stated she called his psychiatrist/Jamel Walters at [facility] regarding new SIB and she prescribed an additional medication. Mother stated patient refuses to see a therapist. He recently started to see blended catalytic case operator/Blas at [facility]. Mother stated Solis does not work and is in the precess of getting his disability set back up. Solis denies any HI or aggression. He has no legal issues. He denies history of trauma or abuse. Solis stated he is drinking a small glass of whiskey in the evenings to "help me not feel." He denies any hallucinations, paranoia, or delusion based thinking. Solis stated he was inpatient at the [facility] in April 2022 and December 2022. He was recently inpatient on [facility]. " Review of the medical record reveals psychiatric history of previous admissions, most recently 02/19/2024. Pt. carries diagnosis of depression and ASD. Review of pertinent labs reveals they are noncontributory. A urine toxicology screen was positive for metabolites of amphetamine (which is prescribed) and MDMA (likely false-positive due to bupropion). BAL was <10 mg/dL. Pt discharged from this service on 02/19/2024. Since that time, duloxetine 30 mg daily appears to have been added (though he knows no details and isn't entirely sure whether any medication changes at all have been made. Pt is focused on somatic illness and minimizes psychiatric symptoms. It's difficult for me to get him to talk about, or acknowledge, the symptoms for which he presented. Pt now says the note he left "wasn't a suicide note" but rather some sort of list of life stressors. He's not able to reconcile that with "I am killing myself" and "body will be in basement" other than to say that he wrote it while drunk. He is minimizing suicidal statements made upon presentation as well. Alcohol intake is very difficult to quantify. Pt has reported getting drunk every night for the past 2 weeks, having "1 or 2 drinks", "1 or 2 whiskeys", or "1 or 2 glasses of whiskey" every day. His primary complaints right now are related to how ill he feels with RSV. He reports malaise, pharyngodynia, cough but is sufficiently energetic and motivated to fiddle with his phone through most of the interview (although he does instruct me to "hold it" several times, this seems more related to my not interrupting him than awareness on his part that this is interrupting the assessment). Past Psychiatric History Current Psychiatric Diagnosis: MDD; Autism Spectrum; PIPPA Outpatient Services: geovanna Cisse CM with [facility]. Previous Psych Admissions: [facility] 01/2024, [facility] (2017 and 2022) for depression with SI. History of Previous Suicide Attempt: No Allergies Allergy/AdvReac Type Severity Reaction Status Date / Time No Known Allergies Allergy Verified 02/27/23 23:10 Home Medications Medication Instructions Recorded Confirmed Type lamotrigine 25 mg tablet (Lamictal) 100 mg DAILY 02/14/23 02/27/23 History bupropion HCl 300 mg 24 hr tablet, 300 mg PO QAM #30 tabs 02/18/23 02/27/23 Rx extended release dextroamphetamine-amphetamine ER 15 mg PO QAM #30 caps 02/18/23 02/27/23 Rx 15 mg 24hr capsule,extend release (Adderall XR) duloxetine 30 mg capsule,delayed 30 mg PO DAILY 02/27/23 02/27/23 History release sprinkle Patient History Medical History Depression Autism Surgical History History of lingual frenotomy History of wisdom tooth extraction, class I edentulism Family History Father Hypertension Dyslipidemia Mother Asthma Other Myocardial infarction Denies family history of Ovarian cancer Prostate cancer Breast cancer Colorectal cancer Social History Smoking Status: Current every day smoker Tobacco Type: Cigarettes Second Hand Exposure: No; Hx Alcohol Use: Yes Alcohol type: hard liquor Hx Substance Use: Yes (PRN prescribed) Prescribed Medications: Marijuana Preferred Language: Congolese Communication Ability: Effective Visual Impairment: Limited Hearing Ability: Normal Log Feeder Required: No Beliefs That Will Affect Care: None marital status: Single Current Living Situation: Parent and Family Current Living Situation Comment: parents and sister current occupational status: unemployed Feels Safe at Home: Yes Childhood Exposure to Second-Hand Smoke: Yes Diet: regular Dental Care, Regularly: Yes Physical Activity Frequency: 3-4 Times per Week Physical Activity Frequency Comment: biking and walking Seatbelt Use: always Sunscreen Use: Yes (sometimes) Gender Identity: Male Assistive Devices: Glasses Physical Exam Psychiatric: Orientation: oriented to person, oriented to place and oriented to time; + not alert (dull) and + uncooperative (disengaged, avoidant) Apperance: appropriately dressed, + disheveled and appeared stated age appears somewhat ill Eye Contact: + poor eye contact Motor Behavior: no abnormal motor movements Speech: + abnormal rate/rhythm/volume of speech (uninflected, aprosodic, brief, quiet, though of normal latency and rate) Affect: + blunted affect Mood: + dysphoric mood Thought Process: + concrete thought process Thought Content: reality based without delusions Suicidal Thoughts: denies suicidal thoughts, denies suicidal plan and denies suicidal intent Homicidal Thoughts: denies homicidal thoughts Hallucinations: no auditory hallucinations and no visual hallucinations Cognition: remote memory grossly intact; + recent memory not intact (no useful recall of treatment changes) and + attention not intact Estimated Intelligence: consistent with education level Insight: + poor insight Judgment: + poor judgement Vital Signs (Past 24 Hours): Last Vital Signs Temp 36.7 C 02/27/23 21:41 Pulse 113 H 02/28/23 06:27 Resp 18 02/28/23 06:27 BP 137/83 02/28/23 06:27 Pulse Ox 95 02/28/23 06:27 O2 Del Method Room Air 02/28/23 06:27 Exam Statement: Physical exams were performed in the ED and by the admitting hospitalist for the purposes of medical clearance. I accept those physicals as correct and adequate and have incorporated that information into my assessment. Review of Systems Psychiatric: + depression; no suicidal ideation and no hallucinations Results & Data (PSY) Medications Administered Bupropion HCl (Bupropion Xl 300 Mg Tabcr) 300 mg PO QAM [facility] Stop: 03/30/23 08:59 Last Admin: 02/28/23 08:49 Dose: 300 mg Documented By: KAT Duloxetine HCl (Duloxetine Hcl 30 Mg Cap) 30 mg PO DAILY [facility] Stop: 03/30/23 08:59 Last Admin: 02/28/23 08:49 Dose: 30 mg Documented By: KAT Lamotrigine (Lamotrigine 100 Mg Tab) 100 mg PO DAILY [facility]; Protocol Stop: 03/30/23 08:59 Last Admin: 02/28/23 08:49 Dose: 100 mg Documented By: KAT Coding Level of Care Code 57726 [facility] Int Hosp Care Lvl 3 Diagnoses Recurrent major depressive disorder, in partial remission F33.41 Active/Remission status: in partial remission Autism spectrum disorder F84.0 Attention deficit hyperactivity disorder (ADHD), predominantly inattentive type F90.0 Attention deficit-hyperactivity disorder type: predominantly inattentive RSV (respiratory syncytial virus infection) B33.8 Time Spent (min) 97
[2023-03-01 05:01] LABS: BUN Creatinine Ratio 12.8 (10-20); Calcium 9.1 mg/dl (8.6-10.3); Creatinine Clr Calc Pharmacy 140.3 ml/min; Est GFR (African American) 143.7 ml/min; Potassium 3.8 mmol/L (3.5-5.1)
[2023-03-01] MEDS: buPROPion XL 300 MG TABCR PO SCH (09:38)
[2023-03-01] MEDS: lamoTRIgine 100 MG TAB PO SCH (09:38)
[2023-03-01] MEDS: DULoxetine HCL 30 MG CAP PO SCH (09:38)
[2023-03-01] MEDS: NICOTINE 14 MG/24 HR PATCH TD SCH (11:06)
--- NOTE | 2023-03-01 12:28 | Hospitalist Progress Note ---
Date of Service March 01, 2023 Assessment & Plan (1) Suicidal ideations: Plan: Occurring 02/27 and left a note, denies suicidal and homicidal thoughts at present. Long psych history - with recent inpatient stay at this facility 02/15- 02/18. Initial plan was for inpatient psych facility, which patient was agreeable to but no available placement given his +RSV. -1:1, sucicide precautions -safe tray -Behavioral health consulted -Recommend continuing home Wellbutrin, Adderall, Cymbalta and Lamictal (2) RSV (respiratory syncytial virus infection): Plan: Mild symptoms, on room air -EKG: NSR, QTC 377 - Isolation precautions, per infection control can be removed 03/07/2023 -Supportive care -Guaifenesin prn for cough (3) Anxiety and depression: Plan: - Continue Bupropion 300mg, Duloxetine 30mg and Lamictal 100mg (4) ADHD: Plan: -Adderall resumed per psych recommendations (5) Tobacco abuse: Plan: Reports smoking ~20 cigarettes daily -Nicotine patch order (6) Autism spectrum disorder: Plan Dispo: Continued inpatient stay DVT proh: low risk, encourage ambulation Admission and Anticipated Discharge Date Admission Date: February 28, 2023 Subjective Patient lying in bed, playing on his phone. Reports that he still feels unwell, fatigue, body aches with coughing. Cough continues to be productive. Denies fevers or chills. Denies chest pain or shortness of breath. Reports that he had some suicidal thoughts this morning, none currently. Denies homicidal thoughts. Reports that his mother is his main support system. Does endorse feeling more anxious currently. Review of Systems Review of Systems: All systems reviewed & are unremarkable except as noted in Subjective Physical Exam Physical Exam: General:NAD, dressed in scrubs, sitting in bed, VS as above Resp: normal respiratory effort, lungs clear to auscultation. Dry cough CV: Tachycardia, no murmur, Abd: non tender, no hepatosplenomegaly Extremities: Moves all extremities, no edema Neuro: A&O x3, limited eye contact, but answers questions appropriately Results & Data Results & Data Vital Signs (Past 12 Hours) Vital Signs Pulse Resp BP Pulse Ox O2 Del Method 03/01/23 11:45 94 H 20 145/88 H 96 Room Air Laboratory Results Chemistry reviewed PG Care Time/CCT Total # of Minutes Spent Total Time Spent with Patient: Total time spent is greater than 50% in coordination of care (as documented) at patient's floor/unit and/or counseling patient: Coding Level of Care Code 24526 SUB INP/OBS CARE 2/35MIN Diagnoses Suicidal ideations R45.851 RSV (respiratory syncytial virus infection) B33.8 Anxiety and depression F41.9; F32.9 Attention deficit hyperactivity disorder (ADHD), predominantly inattentive type F90.0 Attention deficit-hyperactivity disorder type: predominantly inattentive Tobacco abuse Z72.0 Autism spectrum disorder F84.0 (4) ADHD Attention deficit-hyperactivity disorder type: predominantly inattentive Qualified Code(s): F90.0 - Attention-deficit hyperactivity disorder, predominantly inattentive type
--- NOTE | 2023-03-01 19:10 | Psychiatric Progress Note ---
Date of Service March 01, 2023 Impression / Recommendations Impression 03/02/2023: Somewhat withdrawn. Help-rejecting - essentially unwilling and unmotivated to do much that might help his symptoms other than passively use medication. It's difficult to tell how much of this might be attributable to depression vs longer-standing passivity. For example, he says he wants friends, but rejects even fairly basic friend-making advice ("you probably will need to do something that involves other people in some way in order to meet people who might become friends"). 03/01/2023: 23 y/o man with ASD, MDD, ADHD, and alcohol abuse who presented to the ED 10 days following discharge from the [facility] psychiatric service. He left a note explicitly referencing killing himself that he now says wasn't a suicide note. He has been getting drunk nightly and says this (somehow) accounts for the note. Although he currently denies suicidal thoughts, he does acknowledge depressed mood. Discussed recently-started duloxetine. Pt attributes no adverse effects to it, but he doesn't really acknowledge taking it, either. Discussed known interaction risk with alcohol as well as the depressant effect of alcohol. Pt minimizes alcohol use. It's challenging to tell to what degree pt's disengagement and blunted affect are attributable to depression, ASD, or upper respiratory syndrome, but it seems reasonable to conclude that all could be contributors. Based on the initial presentation, it does not seem appropriate for pt to return home at this time. (1) Major depression, recurrent: (2) Autism spectrum disorder: (3) ADHD: (4) RSV (respiratory syncytial virus infection): Plan * increase duloxetine to 40 mg QAM * continue bupropion XL 300 mg QAM * continue amphetamine-dextroamphetamine XR 15 mg QAM * continue lamotrigine 100 mg QAM * psychiatry will continue to follow Risk Factors Assessment Do You Have Access To A Gun?: No Protective Factors Assessment Employed: No (disabled) Interval History Identifying Information ROMANA PEACOCK is a 23-year-old M with a history of autism spectrum disorder and depression, admitted on 02/27/2023 for suicidal thoughts. Consult is by the hospitalist service for "SI". Chief Complaint "I still feel bad". Subjective Subjective The patient was seen and assessed and interval progress reviewed in a multidisciplinary team meeting with psychiatric liaison nursing and social work. For details, see the "Impression" section. Overall I spent a total of 30 minutes for this consultation follow-up including review of chart records, review of test results, risk assessment, discussion with the psychiatric liaison nurse, and documentation in the electronic health r ecord. Physical Exam Psychiatric Orientation: oriented to person, oriented to place and oriented to time; + not a lert (dull) and + uncooperative (disengaged, avoidant) Apperance: appropriately dressed, + disheveled and appeared stated age Eye Contact: + poor eye contact Motor Behavior: no abnormal motor movements Speech: + abnormal rate/rhythm/volume of speech (uninflected, aprosodic, brief, quiet, though of normal latency and rate) Affect: + blunted affect Mood: + dysphoric mood Thought Process: + concrete thought process Thought Content: reality based without delusions Suicidal Thoughts: denies suicidal thoughts, denies suicidal plan and denies suicidal intent Homicidal Thoughts: denies homicidal thoughts Hallucinations: no auditory hallucinations and no visual hallucinations Cognition: remote memory grossly intact; + recent memory not intact (no useful recall of treatment changes) and + attention not intact Estimated Intelligence: consistent with education level Insight: + poor insight Judgment: + poor judgement Vital Signs (Past 24 Hours) Last Vital Signs Temp 36.5 C 02/28/23 18:15 Pulse 104 H 03/01/23 18:00 Resp 18 03/01/23 18:00 BP 121/82 03/01/23 18:00 Pulse Ox 99 03/01/23 18:00 O2 Del Method Room Air 03/01/23 18:00 Results & Data ([facility]) Laboratory Results Laboratory Results - last 24 hr 03/01/23 04:12 Sodium 139 Potassium 3.8 Chloride 105 Carbon Dioxide 28 Anion Gap 6 BUN 11 Creatinine 0.86 Est Cr Clr Drug Dosing 140.3 Est GFR ( Amer) 143.7 Est GFR (Non-Af Amer) 124.0 BUN/Creatinine Ratio 12.8 Glucose 102 H Calcium 9.1 Current Inpatient Medications Current Inpatient Medications: Current Inpatient Medications Acetaminophen (Acetaminophen 325 Mg Tab) 650 mg PO Q4H PRN PRN Reason: pain/fever Stop: 03/30/23 11:37 Amphetamine/Dextroamphetamine (Dextroamphetamine/Amphetamine Er 5 Mg Cap) 15 mg PO QAM [facility] Stop: 03/16/23 08:59 Bupropion HCl (Bupropion Xl 300 Mg Tabcr) 300 mg PO QAM [facility] Stop: 03/30/23 08:59 Last Admin: 03/01/23 09:38 Dose: 300 mg Duloxetine HCl (Duloxetine Hcl 30 Mg Cap) 30 mg PO DAILY [facility] Stop: 03/30/23 08:59 Last Admin: 03/01/23 09:38 Dose: 30 mg Guaifenesin (Guaifenesin 600 Mg Tabcr) 600 mg PO Q12 PRN PRN Reason: Cough Stop: 03/30/23 20:59 Last Admin: 03/01/23 12:01 Dose: 600 mg Lamotrigine (Lamotrigine 100 Mg Tab) 100 mg PO DAILY [facility]; Protocol Stop: 03/30/23 08:59 Last Admin: 03/01/23 09:38 Dose: 100 mg Miscellaneous (Remove Nicoderm Patch) 1 each N/A DAILY@0859 [facility] Stop: 03/31/23 08:58 Last Admin: 03/01/23 11:07 Dose: 1 each Nicotine (Nicotine 14 Mg/24 Hr Patch) 14 mg TD QAM [facility] Stop: 03/30/23 10:59 Last Admin: 03/01/23 11:06 Dose: 14 mg Polyethylene Glycol (Polyethylene (Miralax) 17 Gm Pack) 17 gm PO DAILY PRN PRN Reason: Constipation Stop: 03/30/23 11:37 Mental Health & Subst Abuse Tx Psychiatrist Name of Psychiatrist: [facility] Psychiatrist's Psychiatric Appointment Comment: [address] [facility] [address] Therapist Name of Therapist: Refuses Rehab Care Assistant Name of Rehab Care Assistant: Christopher Odonnell Phone Number for Rehab Care Assistant: [phone] Post Discharge Appointments Primary Care Physician Name Of Family Doctor/PCP: FAREED Leyva Primary Care Provider Appointment Comment: [address], [place] [address] Contact Information Discharge Discharge [address]: [address] [place] [address] (1) Major depression, recurrent Active/Remission status: in partial remission Qualified Code(s): F33.41 - Major depressive disorder, recurrent, in partial remission (3) ADHD Attention deficit-hyperactivity disorder type: predominantly inattentive Qualified Code(s): F90.0 - Attention-deficit hyperactivity disorder, predominantly inattentive type
[2023-03-02] MEDS ORDERED: DULoxetine HCL 20 MG CAP PO SCH (09:00)
[2023-03-02] MEDS: buPROPion XL 300 MG TABCR PO SCH (09:22)
[2023-03-02] MEDS: lamoTRIgine 100 MG TAB PO SCH (09:23)
[2023-03-02] MEDS: NICOTINE 14 MG/24 HR PATCH TD SCH (09:33)
--- NOTE | 2023-03-02 10:13 | Psychiatric Progress Note ---
Date of Service March 02, 2023 Impression / Recommendations Impression 03/02/2023: Continues to engage in a lot of help-rejecting complaining. He rejects any recommendations that involve his doing anything himself to help his mood, focusing entirely on medication and the efforts of others. He now says that he thinks the medication is making him suicidal. He's unable to make any link between either the bupropion or the duloxetine and suicidal thoughts in terms of chronology. In fact, he still denies even knowing that he's on any new medication despite referring to "that new medication", and can't say much about the "old" mediation (bupropion). He can't really describe the suicidal thoughts Pt gestures in the direction of printed patient education materials while reporting these suicidal thoughts. He denies any of the likely adverse effects of either medication and reports no new problems. Prescription data have revealed that the plan when duloxetine was started on 02/20/2023 had been to double the dose after 2 weeks. Since pt is under good observation in a structured setting At nearly the same time as he claims he's been feeling more suicidal since adding medication he says he doesn't remember adding, pt asks when he can go home. As I have every time he's asked before, I tell him that the main criterion for discharge is safety. 03/01/2023: Somewhat withdrawn. Help-rejecting - essentially unwilling and unmotivated to do much that might help his symptoms other than passively use medication. It's difficult to tell how much of this might be attributable to depression vs longer-standing passivity. For example, he says he wants friends, but rejects even fairly basic friend-making advice ("you probably will need to do something that involves other people in some way in order to meet people who might become friends"). 02/28/2023: 23 y/o man with ASD, MDD, ADHD, and alcohol abuse who presented to the ED 10 days following discharge from the [facility] psychiatric service. He left a note explicitly referencing killing himself that he now says wasn't a suicide note. He has been getting drunk nightly and says this (somehow) accounts for the note. Although he currently denies suicidal thoughts, he does acknowledge depressed mood. Discussed recently-started duloxetine. Pt attributes no adverse effects to it, but he doesn't really acknowledge taking it, either. Discussed known interaction risk with alcohol as well as the depressant effect of alcohol. Pt minimizes alcohol use. It's challenging to tell to what degree pt's disengagement and blunted affect are attributable to depression, ASD, or upper respiratory syndrome, but it seems reasonable to conclude that all could be contributors. Based on the initial presentation, it does not seem appropriate for pt to return home at this time. (1) Major depression, recurrent: (2) Autism spectrum disorder: (3) ADHD: (4) RSV (respiratory syncytial virus infection): Plan * increase duloxetine to 60 mg QAM * continue amphetamine-dextroamphetamine XR 15 mg QAM * continue bupropion XL 300 mg QAM * continue lamotrigine 100 mg QAM * psychiatry will continue to follow Inventory Assets Strengths: has local supports, voluntary Needs: safety and stabilization, medication adjustment, additional coping skills, increased outpatient services Suicide Risk Level Suicide Risk Level: Moderate (q15 min suicide checks) (intermittently reports passive ideation) Risk Factors Assessment Male: Yes : Yes Do You Have Access To A Gun?: No Mental Health Diagnoses: Yes Previous Attempt: No Previous Psychiatric Hospitalization: Yes Protective Factors Assessment : No Responsible for Young Children: No Employed: No (disabled) Supportive Family: Yes Interval History Identifying Information ROMANA PEACOCK is a 23-year-old M with a history of autism spectrum disorder and depression, admitted on 02/27/2023 for suicidal thoughts. Consult is by the hospitalist service for "SI". Chief Complaint "I'm worse". Subjective Subjective The patient was seen and assessed and interval progress reviewed in a multidisciplinary team meeting with psychiatric liaison nursing and social work. For details, see the "Impression" section. Overall I spent a total of 57 minutes for this consultation follow-up including review of chart records, review of test results, direct evaluation of the patient [id number], medication education with the patient, risk assessment, discussion with the psychiatric liaison nurse, and documentation in the electronic health record. Physical Exam Psychiatric Orientation: oriented to person, oriented to place and oriented to time; + not alert (dull) and + uncooperative (disengaged, avoidant) Apperance: appropriately dressed, + disheveled and appeared stated age Eye Contact: + poor eye contact Motor Behavior: no abnormal motor movements Speech: + abnormal rate/rhythm/volume of speech (uninflected, aprosodic, brief, quiet, though of normal latency and rate) Affect: + blunted affect Mood: + dysphoric mood Thought Process: + concrete thought process Thought Content: reality based without delusions Suicidal Thoughts: denies suicidal thoughts, denies suicidal plan and denies suicidal intent Homicidal Thoughts: denies homicidal thoughts Hallucinations: no auditory hallucinations and no visual hallucinations Cognition: remote memory grossly intact; + recent memory not intact (no useful recall of treatment changes) and + attention not intact Estimated Intelligence: consistent with education level Insight: + poor insight Judgment: + poor judgement Vital Signs (Past 24 Hours) Last Vital Signs Temp 36.9 C 03/02/23 09:00 Pulse 86 03/02/23 09:00 Resp 18 03/02/23 09:00 BP 122/71 03/02/23 09:00 Pulse Ox 99 03/02/23 09:00 O2 Del Method Room Air 03/02/23 09:00 Results & Data ([facility]) Current Inpatient Medications Current Inpatient Medications: Current Inpatient Medications Acetaminophen (Acetaminophen 325 Mg Tab) 650 mg PO Q4H PRN PRN Reason: pain/fever Stop: 03/30/23 11:37 Amphetamine/Dextroamphetamine (Dextroamphetamine/Amphetamine Er 5 Mg Cap) 15 mg PO QAM [facility] Stop: 03/16/23 08:59 Bupropion HCl (Bupropion Xl 300 Mg Tabcr) 300 mg PO QAM [facility] Stop: 03/30/23 08:59 Last Admin: 03/02/23 09:22 Dose: 300 mg Duloxetine HCl (Duloxetine Hcl 20 Mg Cap) 40 mg PO DAILY [facility] Stop: 04/01/23 08:59 Last Admin: 03/02/23 09:23 Dose: 40 mg Guaifenesin (Guaifenesin 600 Mg Tabcr) 600 mg PO Q12 PRN PRN Reason: Cough Stop: 03/30/23 20:59 Last Admin: 03/01/23 12:01 Dose: 600 mg Lamotrigine (Lamotrigine 100 Mg Tab) 100 mg PO DAILY [facility]; Protocol Stop: 03/30/23 08:59 Last Admin: 03/02/23 09:23 Dose: 100 mg Miscellaneous (Remove Nicoderm Patch) 1 each N/A DAILY@0859 [facility] Stop: 03/31/23 08:58 Last Admin: 03/02/23 09:28 Dose: 1 each Nicotine (Nicotine 14 Mg/24 Hr Patch) 14 mg TD QAM [facility] Stop: 03/30/23 10:59 Last Admin: 03/02/23 09:33 Dose: 14 mg Polyethylene Glycol (Polyethylene (Miralax) 17 Gm Pack) 17 gm PO DAILY PRN PRN Reason: Constipation Stop: 03/30/23 11:37 Mental Health & Subst Abuse Tx Psychiatrist Name of Psychiatrist: [facility] Psychiatrist's Psychiatric Appointment Comment: [address] [facility] [address] Therapist Name of Therapist: Refcaitlin Kitchen Operator Name of Kitchen Operator: Christopher Odonnell Phone Number for Kitchen Operator: [phone] Post Discharge Appointments Primary Care Physician Name Of Family Doctor/PCP: FAREED Leyva Primary Care Provider Appointment Comment: [address] [facility], [place] [address] Contact Information Discharge Discharge Address: [address] [place] [id number] (1) Major depression, recurrent Active/Remission status: in partial remission Qualified Code(s): F33.41 - Major depressive disorder, recurrent, in partial remission (3) ADHD Attention deficit-hyperactivity disorder type: predominantly inattentive Qualified Code(s): F90.0 - Attention-deficit hyperactivity disorder, predominantly inattentive type
[2023-03-02] MEDS: DEXTROAMPHETAMINE/AMPHETAMINE ER 5 MG CAP PO SCH (12:04)
--- NOTE | 2023-03-02 15:44 | Hospitalist Progress Note ---
Date of Service March 02, 2023 Assessment & Plan (1) Suicidal ideations: Plan: Occurring 02/27 and left a note, denies suicidal and homicidal thoughts at present. Long psych history - with recent inpatient stay at this facility 02/15- 02/18. Initial plan was for inpatient psych facility, which patient was agreeable to but no available placement given his +RSV. -1:1, sucicide precautions -safe tray -Behavioral health consulted -Recommend continuing home Wellbutrin, Adderall, Cymbalta and Lamictal -Hoping to taper Cymbalta up to 60mg daily, was given 40mg today, 03/02 (2) RSV (respiratory syncytial virus infection): Plan: Mild symptoms, on room air -EKG: NSR, QTC 377 - Isolation precautions, per infection control can be removed 03/07/2023 -Supportive care -Guaifenesin BID for cough (3) Anxiety and depression: Plan: - Continue Bupropion 300mg, Duloxetine 30mg and Lamictal 100mg (4) ADHD: Plan: -Adderall resumed per psych recommendations (5) Tobacco abuse: Plan: Reports smoking ~20 cigarettes daily -Nicotine patch order (6) Autism spectrum disorder: Plan Dispo: Continued inpatient stay, medically stable. Discharge planning dependent on psych recommendations DVT proh: low risk, encourage ambulation Admission and Anticipated Discharge Date Admission Date: February 28, 2023 Subjective Patient seen in ER, lying in bed. Psychiatry also present at bedside. Has continued dry cough, does feel like the Mucinex helped some. Body aches have improved, but did wake up sweaty this morning. Is hoping to get out of the ED soon to be able to order his own food for meals. Patient feels like his suicidal thoughts have increased since taking his medication, but unsure which one. Review of Systems Review of Systems: All systems reviewed & are unremarkable except as noted in Subjective Physical Exam Physical Exam: General:NAD, dressed in scrubs, sitting in bed, VS as above Resp: normal respiratory effort, lungs clear to auscultation. Dry cough CV: RRR, no murmur, Abd: non tender, no hepatosplenomegaly Extremities: Moves all extremities, no edema Neuro: A&O x3, limited eye contact, but answers questions appropriately Results & Data Results & Data Vital Signs (Past 12 Hours) Vital Signs Temp Pulse Resp BP Pulse Ox O2 Del Method 03/02/23 09:00 36.9 C 86 18 122/71 99 Room Air 03/02/23 06:01 96 H 18 119/67 97 Room Air PG Care Time/CCT Total # of Minutes Spent Total Time Spent with Patient: Total time spent is greater than 50% in coordination of care (as documented) at patient's floor/unit and/or counseling patient: Coding Level of Care Code 91263 SUB INP/OBS CARE 2/35MIN Diagnoses Suicidal ideations R45.851 RSV (respiratory syncytial virus infection) B33.8 Anxiety and depression F41.9; F32.9 Attention deficit hyperactivity disorder (ADHD), predominantly inattentive type F90.0 Attention deficit-hyperactivity disorder type: predominantly inattentive Tobacco abuse Z72.0 Autism spectrum disorder F84.0 (4) ADHD Attention deficit-hyperactivity disorder type: predominantly inattentive Qualified Code(s): F90.0 - Attention-deficit hyperactivity disorder, predominantly inattentive type
[2023-03-02] MEDS: guaiFENesin 600 MG TABCR PO SCH (20:14)
[2023-03-03 08:40] VITALS: RESP 16
[2023-03-03] MEDS: guaiFENesin 600 MG TABCR PO SCH ×2 (09:09→21:17)
[2023-03-03] MEDS: lamoTRIgine 100 MG TAB PO SCH (09:09)
[2023-03-03] MEDS: buPROPion XL 300 MG TABCR PO SCH (09:09)
[2023-03-03] MEDS: DULoxetine HCL 60 MG CAP PO SCH (09:09)
[2023-03-03] MEDS: DEXTROAMPHETAMINE/AMPHETAMINE ER 5 MG CAP PO SCH (09:09)
[2023-03-03] MEDS: NICOTINE 14 MG/24 HR PATCH TD SCH (09:10)
--- NOTE | 2023-03-03 10:02 | Psychiatric Progress Note ---
Date of Service March 03, 2023 Impression / Recommendations Impression 03/03/2023: Pt reports "feeling better today" but can't articulate in what way. When asked about suicidal thoughts responds "I guess", can't report any specific thoughts. Denies any worsened symptoms, including suicidal thoughts. Has tolerated titration of duloxetine to to target dose of 60 mg. 03/02/2023: Continues to engage in a lot of help-rejecting complaining. He rejec ts any recommendations that involve his doing anything himself to help his mood, focusing entirely on medication and the efforts of others. He now says that he thinks the medication is making him suicidal. He's unable to make any link between either the bupropion or the duloxetine and suicidal thoughts in terms of chronology. In fact, he still denies even knowing that he's on any new medication despite referring to "that new medication", and can't say much about the "old" mediation (bupropion). He can't really describe the suicidal thoughts Pt gestures in the direction of printed patient education materials while reporting these suicidal thoughts. He denies any of the likely adverse effects of either medication and reports no new problems. Prescription data have revealed that the plan when duloxetine was started on 02/20/2023 had been to double the dose after 2 weeks. Since pt is under good observation in a structured setting At nearly the same time as he claims he's been feeling more suicidal since adding medication he says he doesn't remember adding, pt asks when he can go home. As I have every time he's asked before, I tell him that the main criterion for discharge is safety. 03/01/2023: Somewhat withdrawn. Help-rejecting - essentially unwilling and unmotivated to do much that might help his symptoms other than passively use medication. It's difficult to tell how much of this might be attributable to depression vs longer-standing passivity. For example, he says he wants friends, but rejects even fairly basic friend-making advice ("you probably will need to do something that involves other people in some way in order to meet people who might become friends"). 02/28/2023: 23 y/o man with ASD, MDD, ADHD, and alcohol abuse who presented to the ED 10 days following discharge from the [facility] psychiatric service. He left a note explicitly referencing killing himself that he now says wasn't a suicide note. He has been getting drunk nightly and says this (somehow) accounts for the note. Although he currently denies suicidal thoughts, he does acknowledge depressed mood. Discussed recently-started duloxetine. Pt attributes no adverse effects to it, but he doesn't really acknowledge taking it, either. Discussed known interaction risk with alcohol as well as the depressant effect of alcohol. Pt minimizes alcohol use. It's challenging to tell to what degree pt's disengagement and blunted affect are attributable to depression, ASD, or upper respiratory syndrome, but it seems reasonable to conclude that all could be contributors. Based on the initial presentation, it does not seem appropriate for pt to return home at this time. (1) Major depression, recurrent: (2) Autism spectrum disorder: (3) ADHD: (4) RSV (respiratory syncytial virus infection): Plan * continue duloxetine 60 mg QAM * continue amphetamine-dextroamphetamine XR 15 mg QAM * continue bupropion XL 300 mg QAM * continue lamotrigine 100 mg QAM * psychiatry will continue to follow Inventory Assets Strengths: has local supports, voluntary Needs: safety and stabilization, medication adjustment, additional coping skills, increased outpatient services Suicide Risk Level Suicide Risk Level: Moderate (q15 min suicide checks) (intermittently reports passive ideation) Risk Factors Assessment Male: Yes : Yes Do You Have Access To A Gun?: No Mental Health Diagnoses: Yes Previous Attempt: No Previous Psychiatric Hospitalization: Yes Protective Factors Assessment : No Responsible for Young Children: No Employed: No (disabled) Supportive Family: Yes Interval History Identifying Information ROMANA PEACOCK is a 23-year-old M with a history of autism spectrum disorder and depression, admitted on 02/27/2023 for suicidal thoughts. Consult is by the hospitalist service for "SI". Chief Complaint "I feel better today". Subjective Subjective The patient was seen and assessed and interval progress reviewed in a multidisciplinary team meeting with psychiatric liaison nursing and social work. For details, see the "Impression" section. Overall I spent a total of 48 minutes for this consultation follow-up including review of chart records, direct evaluation of the patient [id number], counseling the patient, medication education with the patient, risk assessment, discussion with the psychiatric liaison nurse, and documentation in the electronic health record. Physical Exam Psychiatric Orientation: oriented to person, oriented to place and oriented to time; + not alert (dull) and + uncooperative (disengaged, avoidant) Apperance: appropriately dressed, + disheveled and appeared stated age Eye Contact: + poor eye contact Motor Behavior: no abnormal motor movements Speech: + abnormal rate/rhythm/volume of speech (uninflected, aprosodic, brief, quiet, though of normal latency and rate) Affect: + blunted affect Mood: + dysphoric mood Thought Process: + concrete thought process Thought Content: reality based without delusions Suicidal Thoughts: denies suicidal thoughts, denies suicidal plan and denies suicidal intent Homicidal Thoughts: denies homicidal thoughts Hallucinations: no auditory hallucinations and no visual hallucinations Cognition: remote memory grossly intact; + recent memory not intact (no useful recall of treatment changes) and + attention not intact Estimated Intelligence: consistent with education level Insight: + poor insight Judgment: + poor judgement Vital Signs (Past 24 Hours) Last Vital Signs Temp 36.9 C 03/02/23 09:00 Pulse 85 03/03/23 08:39 Resp 16 03/03/23 08:39 BP 117/71 03/03/23 08:39 Pulse Ox 100 03/03/23 08:39 O2 Del Method Room Air 03/03/23 08:39 Results & Data ([facility]) Current Inpatient Medications Current Inpatient Medications: Current Inpatient Medications Acetaminophen (Acetaminophen 325 Mg Tab) 650 mg PO Q4H PRN PRN Reason: pain/fever Stop: 03/30/23 11:37 Amphetamine/Dextroamphetamine (Dextroamphetamine/Amphetamine Er 5 Mg Cap) 15 mg PO QAM [facility] Stop: 03/16/23 08:59 Last Admin: 03/03/23 09:09 Dose: 15 mg Bupropion HCl (Bupropion Xl 300 Mg Tabcr) 300 mg PO QAM [facility] Stop: 03/30/23 08:59 Last Admin: 03/03/23 09:09 Dose: 300 mg Duloxetine HCl (Duloxetine Hcl 60 Mg Cap) 60 mg PO DAILY [facility] Stop: 04/02/23 08:59 Last Admin: 03/03/23 09:09 Dose: 60 mg Guaifenesin (Guaifenesin 600 Mg Tabcr) 600 mg PO Q12 [facility] Stop: 04/01/23 20:59 Last Admin: 03/03/23 09:09 Dose: 600 mg Lamotrigine (Lamotrigine 100 Mg Tab) 100 mg PO DAILY [facility]; Protocol Stop: 03/30/23 08:59 Last Admin: 03/03/23 09:09 Dose: 100 mg Miscellaneous (Remove Nicoderm Patch) 1 each N/A DAILY@0859 [facility] Stop: 03/31/23 08:58 Last Admin: 03/03/23 00:20 Dose: 1 each Nicotine (Nicotine 14 Mg/24 Hr Patch) 14 mg TD QAM [facility] Stop: 03/30/23 10:59 Last Admin: 03/03/23 09:10 Dose: 14 mg Polyethylene Glycol (Polyethylene (Miralax) 17 Gm Pack) 17 gm PO DAILY PRN PRN Reason: Constipation Stop: 03/30/23 11:37 Mental Health & Subst Abuse Tx Psychiatrist Name of Psychiatrist: [facility] Psychiatrist's Psychiatric Appointment Comment: [facility] [address] [facility] [address] Therapist Name of Therapist: Refuses Engine Buildup Mechanic Name of Engine Buildup Mechanic: Christopher Odonnell Phone Number for Engine Buildup Mechanic: [phone] Post Discharge Appointments Primary Care Physician Name Of Family Doctor/PCP: FAREED Leyva Primary Care Provider Appointment Comment: [address] [facility], [place] [address] Contact Information Discharge Discharge Address: [address] [place] [address] (1) Major depression, recurrent Active/Remission status: in partial remission Qualified Code(s): F33.41 - Major depressive disorder, recurrent, in partial remission (3) ADHD Attention deficit-hyperactivity disorder type: predominantly inattentive Qualified Code(s): F90.0 - Attention-deficit hyperactivity disorder, predominantly inattentive type
--- NOTE | 2023-03-03 12:37 | Hospitalist Progress Note ---
Date of Service March 03, 2023 Assessment & Plan (1) Suicidal ideations: Plan: Occurring 02/27 and left a note, denies suicidal and homicidal thoughts at present. Long psych history - with recent inpatient stay at this facility 02/15- 02/18. Initial plan was for inpatient psych facility, which patient was agreeable to but no available placement given his +RSV. -1:1, sucicide precautions -safe tray -Behavioral health consulted -Recommend continuing home Wellbutrin, Adderall, Cymbalta and Lamictal -Increased Cymbalta to 60mg today (2) RSV (respiratory syncytial virus infection): Plan: Mild symptoms, on room air -EKG: NSR, QTC 377 - Isolation precautions, per infection control can be removed 03/07/2023 -Supportive care -Guaifenesin BID for cough -cough improved since this was scheduled (3) Anxiety and depression: Plan: - Continue Bupropion 300mg, Duloxetine 30mg and Lamictal 100mg (4) ADHD: Plan: -Adderall resumed per psych recommendations (5) Tobacco abuse: Plan: Reports smoking ~20 cigarettes daily -Nicotine patch order (6) Autism spectrum disorder: Plan Dispo: Continued inpatient stay, medically stable. Discharge planning dependent on psych recommendations DVT proh: low risk, encourage ambulation Admission and Anticipated Discharge Date Admission Date: February 28, 2023 Subjective Patient seen lying in bed. States chills and body ache has improved. Cough is still there. denies suicidal thoughts at present. Denies CP or SOB. Review of Systems Review of Systems: All systems reviewed & are unremarkable except as noted in Subjective Physical Exam Physical Exam: General:NAD, dressed in scrubs, sitting in bed, VS as above Resp: normal respiratory effort, lungs clear to auscultation. Dry cough improved from yesterday CV: RRR, no murmur, Abd: non tender, no hepatosplenomegaly Extremities: Moves all extremities, no edema Neuro: A&O x3, limited eye contact, but answers questions appropriately Results & Data Results & Data Vital Signs (Past 12 Hours) Vital Signs Pulse Resp BP Pulse Ox O2 Del Method 03/03/23 08:39 85 16 117/71 100 Room Air PG Care Time/CCT Total # of Minutes Spent Total Time Spent with Patient: Total time spent is greater than 50% in coordination of care (as documented) at patient's floor/unit and/or counseling patient: Coding Level of Care Code 62847 SUB INP/OBS CARE MIN Diagnoses Suicidal ideations R45.851 RSV (respiratory syncytial virus infection) B33.8 Anxiety and depression F41.9; F32.9 Attention deficit hyperactivity disorder (ADHD), predominantly inattentive type F90.0 Attention deficit-hyperactivity disorder type: predominantly inattentive Tobacco abuse Z72.0 Autism spectrum disorder F84.0 (4) ADHD Attention deficit-hyperactivity disorder type: predominantly inattentive Qualified Code(s): F90.0 - Attention-deficit hyperactivity disorder, predominantly inattentive type
[2023-03-04] MEDS: DEXTROAMPHETAMINE/AMPHETAMINE ER 5 MG CAP PO SCH (09:56)
[2023-03-04] MEDS: lamoTRIgine 100 MG TAB PO SCH (09:56)
[2023-03-04] MEDS: NICOTINE 14 MG/24 HR PATCH TD SCH (09:56)
[2023-03-04] MEDS: guaiFENesin 600 MG TABCR PO SCH ×2 (09:57→20:02)
[2023-03-04] MEDS: buPROPion XL 300 MG TABCR PO SCH (09:57)
[2023-03-04] MEDS: DULoxetine HCL 60 MG CAP PO SCH (09:57)
--- NOTE | 2023-03-04 11:22 | Psychiatric Progress Note ---
Date of Service March 04, 2023 Impression / Recommendations Impression 03/04/2023: Has continued to report improved mood. Says he is not having any suicidal thoughts at all. Has tolerated increase of duloxetine to 60 mg/day with no adverse effects. Asks if he can "go home tomorrow". Discussed that the primary discharge criterion is safety and that, since he says his is not having suicidal thoughts, it seems as if it would be safe for him to leave the hospital soon. He already has outpatient follow-up scheduled. I told him that if he continued not to have suicidal thoughts I would advocate for discharge tomorrow. The lamotrigine was increased to 100 mg on 02/20/2023, so could potentially be increased on 03/06/2023. 03/03/2023: Pt reports "feeling better today" but can't articulate in what way. When asked about suicidal thoughts responds "I guess", can't report any specific thoughts. Denies any worsened symptoms, including suicidal thoughts. Has tolerated titration of duloxetine to to target dose of 60 mg. 03/02/2023: Continues to engage in a lot of help-rejecting complaining. He rejects any recommendations that involve his doing anything himself to help his mood, focusing entirely on medication and the efforts of others. He now says that he thinks the medication is making him suicidal. He's unable to make any link between either the bupropion or the duloxetine and suicidal thoughts in terms of chronology. In fact, he still denies even knowing that he's on any new medication despite referring to "that new medication", and can't say much about the "old" mediation (bupropion). He can't really describe the suicidal thoughts Pt gestures in the direction of printed patient education materials while reporting these suicidal thoughts. He denies any of the likely adverse effects of either medication and reports no new problems. Prescription data have revealed that the plan when duloxetine was started on 02/20/2023 had been to double the dose after 2 weeks. Since pt is under good observation in a structured setting At nearly the same time as he claims he's been feeling more suicidal since adding medication he says he doesn't remember adding, pt asks when he can go home. As I have every time he's asked before, I tell him that the main criterion for discharge is safety. 03/01/2023: Somewhat withdrawn. Help-rejecting - essentially unwilling and unmotivated to do much that might help his symptoms other than passively use medication. It's difficult to tell how much of this might be attributable to depression vs longer-standing passivity. For example, he says he wants friends, but rejects even fairly basic friend-making advice ("you probably will need to do something that involves other people in some way in order to meet people who might become friends"). 02/28/2023: 23 y/o man with ASD, MDD, ADHD, and alcohol abuse who presented to the ED 10 days following discharge from the [facility] psychiatric service. He left a note explicitly referencing killing himself that he now says wasn't a suicide note. He has been getting drunk nightly and says this (somehow) accounts for the note. Although he currently denies suicidal thoughts, he does acknowledge depressed mood. Discussed recently-started duloxetine. Pt attributes no adverse effects to it, but he doesn't really acknowledge taking it, either. Discussed known interaction risk with alcohol as well as the depressant effect of alcohol. Pt minimizes alcohol use. It's challenging to tell to what degree pt's disengagement and blunted affect are attributable to depression, ASD, or upper respiratory syndrome, but it seems reasonable to conclude that all could be contributors. Based on the initial presentation, it does not seem appropriate for pt to return home at this time. (1) Major depression, recurrent: (2) Autism spectrum disorder: (3) ADHD: (4) RSV (respiratory syncytial virus infection): Plan * continue duloxetine 60 mg QAM * continue amphetamine-dextroamphetamine XR 15 mg QAM * continue bupropion XL 300 mg QAM * continue lamotrigine 100 mg QAM * will likely be able to discharge to outpatient care tomorrow Inventory Assets Strengths: has local supports, voluntary Needs: safety and stabilization, medication adjustment, additional coping skills, increased outpatient services Suicide Risk Level Suicide Risk Level: Moderate (q15 min suicide checks) (intermittently reports passive ideation) Risk Factors Assessment Male: Yes : Yes Do You Have Access To A Gun?: No Mental Health Diagnoses: Yes Previous Attempt: No Previous Psychiatric Hospitalization: Yes Protective Factors Assessment : No Responsible for Young Children: No Employed: No (disabled) Supportive Family: Yes Interval History Identifying Information ROMANA PEACOCK is a 23-year-old M with a history of autism spectrum disorder and depression, admitted on 02/27/2023 for suicidal thoughts. Consult is by the hospitalist service for "SI". Chief Complaint "Doing good now". Subjective Subjective The patient was seen and assessed and interval progress reviewed in a multidis ciplinary team meeting with psychiatric liaison nursing and social work. For details, see the "Impression" section. Overall I spent a total of 43 minutes for this consultation follow-up including review of chart records, direct evaluation of the patient [id number], counseling the patient, medication education with the patient, risk assessment, discussion with the psychiatric liaison nurse, and documentation in the electronic health record. Physical Exam Psychiatric Orientation: oriented to person, oriented to place and oriented to time; + not alert (dull) and + uncooperative (disengaged, avoidant) Apperance: appropriately dressed, + disheveled and appeared stated age Eye Contact: + poor eye contact Motor Behavior: no abnormal motor movements Speech: + abnormal rate/rhythm/volume of speech (uninflected, aprosodic, brief, quiet, though of normal latency and rate) Affect: + blunted affect Mood: + dysphoric mood Thought Process: + concrete thought process Thought Content: reality based without delusions Suicidal Thoughts: denies suicidal thoughts, denies suicidal plan and denies almonte icidal intent Homicidal Thoughts: denies homicidal thoughts Hallucinations: no auditory hallucinations and no visual hallucinations Cognition: remote memory grossly intact; + recent memory not intact (no useful recall of treatment changes) and + attention not intact Estimated Intelligence: consistent with education level Insight: + poor insight Judgment: + poor judgement Vital Signs (Past 24 Hours) Last Vital Signs Temp 36.3 C L 03/04/23 07:49 Pulse 96 H 03/04/23 07:49 Resp 16 03/04/23 07:49 BP 105/72 03/04/23 07:49 Pulse Ox 95 03/04/23 07:49 O2 Del Method Room Air 03/04/23 07:49 Results & Data (U) Current Inpatient Medications Current Inpatient Medications: Current Inpatient Medications Acetaminophen (Acetaminophen 325 Mg Tab) 650 mg PO Q4H PRN PRN Reason: pain/fever Stop: 03/30/23 11:37 Amphetamine/Dextroamphetamine (Dextroamphetamine/Amphetamine Er 5 Mg Cap) 15 mg PO QAM [facility] Stop: 03/16/23 08:59 Last Admin: 03/04/23 09:56 Dose: 15 mg Bupropion HCl (Bupropion Xl 300 Mg Tabcr) 300 mg PO QAM [facility] Stop: 03/30/23 08:59 Last Admin: 03/04/23 09:57 Dose: 300 mg Duloxetine HCl (Duloxetine Hcl 60 Mg Cap) 60 mg PO DAILY [facility] Stop: 04/02/23 08:59 Last Admin: 03/04/23 09:57 Dose: 60 mg Guaifenesin (Guaifenesin 600 Mg Tabcr) 600 mg PO Q12 [facility] Stop: 04/01/23 20:59 Last Admin: 03/04/23 09:57 Dose: 600 mg Lamotrigine (Lamotrigine 100 Mg Tab) 100 mg PO DAILY [facility]; Protocol Stop: 03/30/23 08:59 Last Admin: 03/04/23 09:56 Dose: 100 mg Miscellaneous (Remove Nicoderm Patch) 1 each N/A DAILY@0859 [facility] Stop: 03/31/23 08:58 Last Admin: 03/04/23 09:00 Dose: 1 each Nicotine (Nicotine 14 Mg/24 Hr Patch) 14 mg TD [facility] Stop: 03/30/23 10:59 Last Admin: 03/04/23 09:56 Dose: 14 mg Polyethylene Glycol (Polyethylene (Miralax) 17 Gm Pack) 17 gm PO DAILY PRN PRN Reason: Constipation Stop: 03/30/23 11:37 Mental Health & Subst Abuse Tx Psychiatrist Name of Psychiatrist: [facility] Psych[facility]rist's Date Of Appointment With Psychiatric Provider: 03/13/2023 Time of Appointment with Psychiatrist: 12:10pm Psychiatric Appointment Comment: [address] [place] [address] Therapist Name of Therapist: Refuses Personal Finance Instructor Name of Personal Finance Instructor: Christopher Odonnell Phone Number for Personal Finance Instructor: [phone] Post Discharge Appointments Primary Care Physician Name Of Family Doctor/PCP: FAREED [facility] Time of Appointment with PCP: they will contact you to schedule follow-up Provider Appointment Comment: [address], [place], [place] [address] Contact Information Discharge Discharge [address]: [address] [place], [place] [address]julianne [place] [address] (1) Major depression, recurrent Active/Remission status: in partial remission Qualified Code(s): F33.41 - Major depressive disorder, recurrent, in partial remission (3) ADHD Attention deficit-hyperactivity disorder type: predominantly inattentive Qualified Code(s): F90.0 - Attention-deficit hyperactivity disorder, predominantly inattentive type
--- NOTE | 2023-03-04 15:47 | Hospitalist Progress Note ---
Date of Service March 04, 2023 Assessment & Plan (1) Suicidal ideations: Plan: Occurring 02/27 and left a note, denies suicidal and homicidal thoughts at present. Long psych history - with recent inpatient stay at this facility 02/15- 02/18. Initial plan was for inpatient psych facility, which patient was agreeable to but no available placement given his +RSV. -1:1, sucicide precautions -safe tray -Behavioral health consulted -Recommend continuing home Wellbutrin, Adderall, Cymbalta and Lamictal - Cymbalta increased to 60 mg - reports some improvement in mood (2) RSV (respiratory syncytial virus infection): Plan: Mild symptoms, on room air -EKG: NSR, QTC 377 - Isolation precautions, per infection control can be removed 03/07/2023 -Supportive care -Guaifenesin BID for cough -cough improved since this was scheduled (3) Anxiety and depression: Plan: treatment as above per psychiatrist recommendations (4) ADHD: Plan: -Adderall resumed per psych recommendations (5) Tobacco abuse: Plan: Reports smoking ~20 cigarettes daily -Nicotine patch order (6) Autism spectrum disorder: Plan Dispo: Continued inpatient stay, medically stable. Discharge planning dependent on psych recommendations DVT proh: low risk, encourage ambulation Admission and Anticipated Discharge Date Admission Date: February 28, 2023 Subjective he was not very talkative with me but acknowledged that his mood is a little bit improved today. Continues to have cough and stuffy nose related to RSV no shortness of breath Physical Exam Physical Exam: PHYSICAL EXAMINATION Last 24h vital signs reviewed, see documentation in flowsheet General: comfortable appearing, no distress HEENT: Normocephalic, atraumatic, pupils round and equal, sclerae anicteric, no conjunctival injection, moist mucus membranes Lungs: Normal respiratory effort. Clear to auscultation bilaterally. No RRW Heart: Regular rate and rhythm, no murmurs. No JVD Abdomen: nondistended Extremities: Warm, dry, well-perfused. No extremity edema. Neuro: Alert and oriented x 4, face symmetric, moves 4 extremities well Psych: withdrawn affect and avoidant behavior, made eye contact and answer direct questions but did not engage in conversation Results & Data Results & Data Vital Signs (Past 12 Hours) Vital Signs Temp Pulse Resp BP Pulse Ox O2 Del Method 03/04/23 14:55 36.7 C 115 H 16 129/67 95 Room Air 03/04/23 07:49 36.3 C L 96 H 16 105/72 95 Room Air PG Care Time/CCT Total # of Minutes Spent Total Time Spent with Patient: Total time spent is greater than 50% in coordination of care (as documented) at patient's floor/unit and/or counseling patient: Coding Level of Care Code 49505 SUB INP/OBS CARE Diagnoses Suicidal ideations R45.851 RSV (respiratory syncytial virus infection) B33.8 Anxiety and depression F41.9; F32.9 Attention deficit hyperactivity disorder (ADHD), predominantly inattentive type F90.0 Attention deficit-hyperactivity disorder type: predominantly inattentive Tobacco abuse Z72.0 Autism spectrum disorder F84.0 (4) ADHD Attention deficit-hyperactivity disorder type: predominantly inattentive Qualified Code(s): F90.0 - Attention-deficit hyperactivity disorder, predominantly inattentive type
[2023-03-05 09:34] VITALS: TEMP 98.1
[2023-03-05] MEDS: buPROPion XL 300 MG TABCR PO SCH (10:09)
[2023-03-05] MEDS: DULoxetine HCL 60 MG CAP PO SCH (10:10)
[2023-03-05] MEDS: lamoTRIgine 100 MG TAB PO SCH (10:11)
[2023-03-05] MEDS: guaiFENesin 600 MG TABCR PO SCH (10:11)
[2023-03-05] MEDS: NICOTINE 14 MG/24 HR PATCH TD SCH (10:12)
[2023-03-05] MEDS: DEXTROAMPHETAMINE/AMPHETAMINE ER 5 MG CAP PO SCH (11:37)
[2023-03-05 15:08] VITALS: BP 129/81; PULSE 115; O2SAT 95
--- NOTE | 2023-03-05 16:14 | Psychiatric Progress Note ---
Date of Service March 05, 2023 Impression / Recommendations Impression 03/05/2023: Pt reports that he continues to feel better and says he has not had any suicidal thoughts for a couple of days. He is tolerating medications well and no further adjustments are anticipated now. The lamotrigine could be increased, if indicated, as soon as tomorrow but that's a decision best left to his outpatient team. Pt requests discharge today and based on lack of suicidal thoughts and improved mood this appears appropriate. 03/04/2023: Has continued to report improved mood. Says he is not having any suicidal thoughts at all. Has tolerated increase of duloxetine to 60 mg/day with no adverse effects. Asks if he can "go home tomorrow". Discussed that the primary discharge criterion is safety and that, since he says his is not having suicidal thoughts, it seems as if it would be safe for him to leave the hospital soon. He already has outpatient follow-up scheduled. I told him that if he continued not to have suicidal thoughts I would advocate for discharge tomorrow. The lamotrigine was increased to 100 mg on 02/20/2023, so could potentially be increased on 03/06/2023. 03/03/2023: Pt reports "feeling better today" but can't articulate in what way. When asked about suicidal thoughts responds "I guess", can't report any specific thoughts. Denies any worsened symptoms, including suicidal thoughts. Has tolerated titration of duloxetine to to target dose of 60 mg. 03/02/2023: Continues to engage in a lot of help-rejecting complaining. He rejects any recommendations that involve his doing anything himself to help his mood, focusing entirely on medication and the efforts of others. He now says that he thinks the medication is making him suicidal. He's unable to make any link between either the bupropion or the duloxetine and suicidal thoughts in terms of chronology. In fact, he still denies even knowing that he's on any new medication despite referring to "that new medication", and can't say much about the "old" mediation (bupropion). He can't really describe the suicidal thoughts Pt gestures in the direction of printed patient education materials while reporting these suicidal thoughts. He denies any of the likely adverse effects of either medication and reports no new problems. Prescription data have revealed that the plan when duloxetine was started on 02/20/2023 had been to double the dose after 2 weeks. Since pt is under good observation in a structured setting At nearly the same time as he claims he's been feeling more suicidal since adding medication he says he doesn't remember adding, pt asks when he can go home. As I have every time he's asked before, I tell him that the main criterion for discharge is safety. 03/01/2023: Somewhat withdrawn. Help-rejecting - essentially unwilling and unmotivated to do much that might help his symptoms other than passively use medication. It's difficult to tell how much of this might be attributable to depression vs longer-standing passivity. For example, he says he wants friends, but rejects even fairly basic friend-making advice ("you probably will need to do something that involves other people in some way in order to meet people who might become friends"). 02/28/2023: 23 y/o man with ASD, MDD, ADHD, and alcohol abuse who presented to the ED 10 days following discharge from the [facility] psychiatric service. He left a note explicitly referencing killing himself that he now says wasn't a suicide note. He has been getting drunk nightly and says this (somehow) accounts for the note. Although he currently denies suicidal thoughts, he does acknowledge depressed mood. Discussed recently-started duloxetine. Pt attributes no adverse effects to it, but he doesn't really acknowledge taking it, either. Discussed known interaction risk with alcohol as well as the depressant effect of alcohol. Pt minimizes alcohol use. It's challenging to tell to what degree pt's disengagement and blunted affect are attributable to depression, ASD, or upper respiratory syndrome, but it seems reasonable to conclude that all could be contributors. Based on the initial presentation, it does not seem appropriate for pt to return home at this time. (1) Major depression, recurrent: (2) Autism spectrum disorder: (3) ADHD: (4) RSV (respiratory syncytial virus infection): Plan * continue duloxetine 60 mg QAM * continue amphetamine-dextroamphetamine XR 15 mg QAM * continue bupropion XL 300 mg QAM * continue lamotrigine 100 mg QAM * can discharge to outpatient psychiatric care Inventory Assets Strengths: has local supports, voluntary Needs: safety and stabilization, medication adjustment, additional coping skills, increased outpatient services Suicide Risk Level Suicide Risk Level: Moderate (q15 min suicide checks) (intermittently reports passive ideation) Risk Factors Assessment Male: Yes : Yes Do You Have Access To A Gun?: No Mental Health Diagnoses: Yes Previous Attempt: No Previous Psychiatric Hospitalization: Yes Protective Factors Assessment : No Responsible for Young Children: No Employed: No (disabled) Supportive Family: Yes Interval History Identifying Information ROMANA PEACOCK is a 23-year-old M with a history of autism spectrum disorder and depression, admitted on 02/27/2023 for suicidal thoughts. Consult is by the hospitalist service for "SI". Chief Complaint "Still feeling better". Subjective Subjective The patient was seen and assessed and interval progress reviewed in a multidisciplinary team meeting with psychiatric liaison nursing and social work. For details, see the "Impression" section. Overall I spent a total of 41 minutes for this consultation follow-up including review of chart records, direct evaluation of the patient [id number], counseling the patient, medication education with the patient, risk assessment, discussion with the psychiatric liaison nurse, and documentation in the electronic health record. Physical Exam Psychiatric Orientation: oriented to person, oriented to place and oriented to time; + not alert (dull) and + uncooperative (disengaged, avoidant) Apperance: appropriately dressed, + disheveled and appeared stated age Eye Contact: + poor eye contact Motor Behavior: no abnormal motor movements Speech: + abnormal rate/rhythm/volume of speech (uninflected, aprosodic, brief, quiet, though of normal latency and rate) Affect: + blunted affect Mood: + dysphoric mood Thought Process: + concrete thought process Thought Content: reality based without delusions Suicidal Thoughts: denies suicidal thoughts, denies suicidal plan and denies suicidal intent Homicidal Thoughts: denies homicidal thoughts Hallucinations: no auditory hallucinations and no visual hallucinations Cognition: remote memory grossly intact; + recent memory not intact (no useful recall of treatment changes) and + attention not intact Estimated Intelligence: consistent with education level Insight: + poor insight Judgment: + poor judgement Vital Signs (Past 24 Hours) Last Vital Signs Temp 36.7 C 03/05/23 15:02 Pulse 115 H 03/05/23 15:02 Resp 16 03/05/23 15:02 BP 129/81 03/05/23 15:02 Pulse Ox 95 03/05/23 15:02 O2 Del Method Room Air 03/05/23 15:02 Results & Data ([facility]) Current Inpatient Medications Current Inpatient Medications: Current Inpatient Medications Acetaminophen (Acetaminophen 325 Mg Tab) 650 mg PO Q4H PRN PRN Reason: pain/fever Stop: 03/30/23 11:37 Amphetamine/Dextroamphetamine (Dextroamphetamine/Amphetamine Er 5 Mg Cap) 15 mg PO QAM [facility] Stop: 03/16/23 08:59 Last Admin: 03/05/23 11:37 Dose: 15 mg Bupropion HCl (Bupropion Xl 300 Mg Tabcr) 300 mg PO QAM [facility] Stop: 03/30/23 08:59 Last Admin: 03/05/23 10:09 Dose: 300 mg Duloxetine HCl (Duloxetine Hcl 60 Mg Cap) 60 mg PO DAILY [facility] Stop: 04/02/23 08:59 Last Admin: 03/05/23 10:10 Dose: 60 mg Guaifenesin (Guaifenesin 600 Mg Tabcr) 600 mg PO Q12 [facility] Stop: 04/01/23 20:59 Last Admin: 03/05/23 10:11 Dose: 600 mg Lamotrigine (Lamotrigine 100 Mg Tab) 100 mg PO DAILY [facility]; Protocol Stop: 03/30/23 08:59 Last Admin: 03/05/23 10:11 Dose: 100 mg Miscellaneous (Remove Nicoderm Patch) 1 each N/A DAILY@0859 [facility] Stop: 03/31/23 08:58 Last Admin: 03/05/23 10:09 Dose: 1 each Nicotine (Nicotine 14 Mg/24 Hr Patch) 14 mg TD QAM [facility] Stop: 03/30/23 10:59 Last Admin: 03/05/23 10:12 Dose: 14 mg Polyethylene Glycol (Polyethylene (Miralax) 17 Gm Pack) 17 gm PO DAILY PRN PRN Reason: Constipation Stop: 03/30/23 11:37 Mental Health & Subst Abuse Tx Psychiatrist Name of Psychiatrist: [facility] Psychiatrist's Date Of Appointment With Psychiatric Provider: 03/13/2023 Time of Appointment with Psychiatrist: 12:10pm Psychiatric Appointment Comment: [address] [place] [address] Psychiatrist Release of Information: Obtained, Reviewed and Signed Therapist Name of Therapist: Refuses Boilerhouse Mechanic Name of Boilerhouse Mechanic: Christopher Tovar Blas Phone Number for Boilerhouse Mechanic: [phone] Case Management Appointment Comment: Please resume your normal schedule. Boilerhouse Mechanic Release of Information: Obtained, Reviewed and Signed Post Discharge Appointments Primary Care Physician Name Of Family Doctor/PCP: FAREED Le[facility] Time of Appointment with PCP: they will contact you to schedule follow-up Provider Appointment Comment: [facility] [place] [address] Contact Information Discharge Discharge Address: [address] [place] [id number] (1) Major depression, recurrent Active/Remission status: in partial remission Qualified Code(s): F33.41 - Major depressive disorder, recurrent, in partial remission (3) ADHD Attention deficit-hyperactivity disorder type: predominantly inattentive Qualified Code(s): F90.0 - Attention-deficit hyperactivity disorder, predom inantly inattentive type
--- NOTE | 2023-03-05 19:59 | Discharge Summary ---
Date of Service March 05, 2023 Admission HPI Per Admitting Provider 23M with a hx of ASD, ADHD, anxiety and depression brought to the ER by his mother after having suicidal ideation and leaving a note. Patient states that he does not remember having suicidal thoughts or what his plan was because he was drunk but does acknowledge writing the note. Stays he has been drinking to get drunk every night since his last discharge, but this equates to 1-2 drinks of whiskey. Also reports smoking ~20 cigarettes a day, had planned to quit but reports could not afford nicotine gum. Spoke with mother by patient phone while in the room and relays the events of last night, and patient did not deny any of the events. Both mother and patient report that he has been taking his medications at home as prescribed. Also has been dealing with cough for the last few days. Productive, but unsure of color. Does not feel short of breath. Reports generalized body aches. No fevers or chills. Principal Diagnosis Suicidal ideation, RSV infection Discharge Exam PHYSICAL EXAMINATION Last 24h vital signs reviewed, see documentation in flowsheet General: comfortable appearing, no distress HEENT: Normocephalic, atraumatic, pupils round and equal, sclerae anicteric, no conjunctival injection, moist mucus membranes Lungs: Normal respiratory effort. No coughing Heart: deferred Abdomen: nondistended Extremities: Warm, dry, well-perfused. No extremity edema. Neuro: Alert and oriented x 4, face symmetric, moves 4 extremities well Psych: denies SI, depressed mood but states improved since admission, withdrawn affect and behavior, makes eye contact Discharge Data Allergies Allergy/AdvReac Type Severity Reaction Status Date / Time No Known Allergies Allergy Verified 02/27/23 23:10 Consultations 02/28/23 09:07 ED Decision to Admit Stat 02/28/23 11:38 Consult Psychiatry Routine Hospital Course (1) Suicidal ideations: Occurring 1/ and left a note, denies suicidal and homicidal thoughts at present. Long psych history - with recent inpatient stay at this facility 02/15- 02/18. Initial plan was for inpatient psych facility, which patient was agreeable to but no available placement given his +RSV. -inpatient psychiatrist consulted -Recommend continuing home Wellbutrin, Adderall, Cymbalta and Lamictal - Cymbalta increased to 60 mg - reports improvement in mood, no further suicidal thoughts, per psychiatrist evaluation today safe for discharge to outpatient setting, outpatient mental health follow up. (2) RSV (respiratory syncytial virus infection): Mild URI symptoms, not hypoxic, on room air -symptoms resolved by time of discharge (3) Anxiety and depression: treatment as above per psychiatrist recommendations (4) ADHD: -Adderall resumed per psych recommendations (5) Tobacco abuse: Reports smoking ~20 cigarettes daily -Nicotine patch order, counseled cessation (6) Autism spectrum disorder: Plan Total Time Total Time Spent Total Time Spent (In Minutes): 25 minutes coordinating care for discharge Discharge Plan Discharge Items Patient Disposition: Home - Self-Care Reason For Visit: RSV, SUICIDAL IDEATIONS Discharge Diagnosis: RSV, suicidal ideation Activity: Resume your previous activity Non-emergency contact: Primary Care Provider and Psychiatrist Call non-emergency contact if: you have any medication questions and your symp toms worsen Follow-up/Referrals: Brant Amaral, [Primary Care Provider] - 03/07/23 11:30 am Diet: Regular Addtl Attending Provider Instructions: Follow up with your outpatient mental health providers as soon as possible The psychiatrist increased your duloxetine dose. I sent the prescription to your pharmacy. Seek immediate medical attention if you have recurrence of suicidal thoughts Pending Studies at Discharge: No Stand-Alone Forms: My [facility], Smoking Cessation Medications and DC Order Prescriptions: New duloxetine 60 mg Capsule,Delayed Release(Dr/Ec) 60 mg PO DAILY Qty: 30 0RF Continued lamotrigine [Lamictal] 25 mg tablet 100 mg DAILY bupropion HCl 300 mg Tablet Extended Release 24 Hr 300 mg PO QAM Qty: 30 0RF dextroamphetamine-amphetamine [Adderall XR] 15 mg capsule,extended release 24hr 15 mg PO QAM Qty: 30 0RF Discontinued duloxetine 30 mg Capsule, Delayed Rel Sprinkle 30 mg PO DAILY Discharge Orders: Discharge Order (Routine); Ordered 03/05/23 Ordered By: Anna Phillips/Other Patient Handouts: RSV (Respiratory Syncytial Virus) Admission Data Admit Date/Time: 02/28/23 11:02 Attending Provider: Anna Sousa Admit Provider: Brigido Dimas Primary Care Provider: Brant Amaral Other Providers: García Romero Erica K.; Kathrin Gambino; Javi Peralta; Abdon Triplett Other Interventions: Discharge Summary Assessment (RN) Last Done: 03/05/23 17:27 Coding Level of Care Code 81629 IN/OBS DISCH 30 MIN/LESS Diagnoses Suicidal ideations R45.851 RSV (respiratory syncytial virus infection) B33.8 Anxiety and depression F41.9; F32.9 Attention deficit hyperactivity disorder (ADHD), predominantly inattentive type F90.0 Attention deficit-hyperactivity disorder type: predominantly inattentive Tobacco abuse Z72.0 Autism spectrum disorder F84.0
[2023-03-06 12:11] LABS: Amphetamine Urine, Confirm 7090 ng/mL (<250); MDA negative; MDEA negative; MDMA (Ecstasy) Urine, Confirm negative; Methamphetamine, Ur Confirm NEGATIVE ng/mL (<250)
== END 2023-03-05 19:05 | disposition home or self-care (01) | DRG 153 ==
LOC: SUATTDRO → ED 21:35 → EDINP 02-28 11:02 → SUATTDRO 02-28 11:02 → 3W 02-28 11:38

== ENCOUNTER 2023-07-23 02:03 | Inpatient (IN) ==
[2023-07-23 02:43] LABS: Basophils # (auto) 0.05 K/uL (0.00-0.20); Basophils % (auto) 0.6 %; Eosinophils % (auto) 2.4 %; Hematocrit (blood only) 48.3 % (42.0-52.0); Hemoglobin 17.3 g/dl (14.0-18.0); Immature Granulocytes # (auto) 0.03 K/uL (0.01-0.20); Immature Granulocytes % (auto) 0.4 %; Lymphocytes # (auto) 1.81 K/uL (1.20-3.40); Lymphocytes % (auto) 21.7 %; Mean Corpuscular Hemoglobin 31.7 pg (25.0-34.0); Mean Corpuscular Hgb Conc 35.8 g/dL (32.0-36.0); Mean Corpuscular Volume 88.6 fL (80.0-100.0); Mean Platelet Volume 9.4 fL (9.4-12.4); Monocytes # (auto) 0.42 K/uL (0.11-0.59); Neutrophils # (auto) 5.83 K/uL (1.40-6.50); Neutrophils % (auto) 69.9 %; Platelet Count 289 K/uL (130-400); RDW Coefficient of Variation 11.2 % (11.5-14.5); RDW Standard Deviation 35.9 fL (36.4-46.3); Red Blood Count 5.45 M/uL (4.70-6.10); White Blood Count 8.34 K/ul (4.8-10.8)
[2023-07-23 02:43] LABS: Appearance Urine Clear (Clear); Bilirubin Urine Negative (Negative); Blood Urine Negative (Negative); Color Urine Yellow; Glucose Urine UA Negative (Negative); Ketones Urine Negative (Negative); Leukocyte Esterase Urine Negative (Negative); Nitrite Urine Negative (Negative); Protein Urine Negative (Negative); Specific Gravity Urine 1.021 (1.000-1.030); Urobilinogen Urine Negative (Negative)
[2023-07-23 02:58] LABS: Albumin Level 5.2 gm/dl (3.4-5.0); BUN Creatinine Ratio 11.9 (10-20); Bilirubin,Total 0.5 mg/dl (0.2-1.0); Calcium 9.7 mg/dl (8.6-10.3); Creatinine Clr Calc Pharmacy 119.5 ml/min; Est GFR (African American) 122.7 ml/min; Est GFR (Non-African American) 105.8 ml/min; Potassium 3.5 mmol/L (3.5-5.1)
--- NOTE | 2023-07-23 02:58 | Emergency Department Note ---
Impression & Plan Depression, Autism spectrum disorder, Suicidal ideation ED Provider Note ED Provider Note NAME: ROMANA PEACOCK AGE:23 SEX: Male : 2000 ARRIVES VIA: private vehicle INFORMANT: Patient ED PROVIDER(s): Yancy Mendoza DO CHIEF COMPLAINT: Mental health evaluation HPI: This is a 23-year-old male presents emerged part with for mental health evaluation. Patient with a history of depression and autism. He does live with mom. He reported that he woke up at midnight with thoughts of suicide and a plan although he would not disclose the plan to nursing staff. He denies any recent illness or injury. States he is taking his medications as prescribed. He does admit to intermittent alcohol use and tobacco abuse, denies any recreational drugs. PAST MEDICAL HISTORY:See Below PAST SURGICAL HISTORY:See Below FAMILY HISTORY:See Below SOCIAL HISTORY:See Below HOME MEDICATIONS:See Below ALLERGIES:See Below VITALS:See Below PHYSICAL EXAMINATION: GENERAL: alert, well appearing, well nourished, no distress, non-toxic EYE EXAM: normal conjunctiva, PERRL and EOM's grossly intact OROPHARYNX: no exudate, no erythema, lips, buccal mucosa, and tongue normal and mucous membranes are moist NECK: supple, no nuchal rigidity, no adenopathy, non-tender LUNGS: Clear to auscultation. Normal chest wall mechanics, no w/r/r HEART: no murmurs, S1 normal and S2 normal ABDOMEN: abdomen soft, non-tender, normo-active bowel sounds, no masses, no rebound or guarding. BACK: Back is symmetrical on inspection and there is no deformity, no midline tenderness, no CVA tenderness. SKIN: no rashes, petechiae, orbruising UPPER EXTREMITIES: upper extremities are grossly normal. FROM, nml pulses b/l. LOWER EXTREMITIES: No pitting edema. FROM, nml pulses b/l. NEURO EXAM: Normal sensorium, cranial nerves II-XII grossly intact, normal speech, no facial droop,nogross weakness of arms, no gross weakness of legs. Gross sensation intact. No ataxia. Vital Signs: reviewed and remarkable Differential Diagnosis: mood disorder, suicidal ideation, anxiety, depression, substance abuse, toxidrome, infection, hypoglycemia, electrolyte abnormalities, ICH as well as others were considered. MEDICAL DECISION MAKING: This is a 23-year-old male brought in by mom due to concern for suicidal ideation with plan. Patient with a history of depression as well as autism spectrum disorder. Patient was afebrile vital signs stable. Labs and urine drawn and sent per mental health protocol. Patient with no other concerns for injury or illness and after review of labs is medically cleared. He was seen and evaluated by case management and referred for additional inpatient mental health treatment. Patient accepted to [facility]. in the early childhood coordinator hours. 201 signed by me. ER Treatment Provided: See below Diagnostics Interpreted By Me: -Laboratory studies: As stated above and show below. Triage Nursing Note Reviewed Prior/Outside Records Reviewed Past Med/Surg History Problem List (Updated 07/23/23 @ 09:08 by Yancy Mendoza DO) Suicidal ideation (Acute) Depression (Acute) Tobacco abuse RSV (respiratory syncytial virus infection) Cough (Acute) Suicidal ideations (Acute) Major depression, recurrent (Chronic) Heartburn Autism spectrum disorder (Acute) ADHD (Chronic) Hypertension Asthma Medical History Depression Autism Surgical History History of lingual frenotomy History of wisdom tooth extraction, class I edentulism Family History Father Hypertension Dyslipidemia Mother Asthma Other Myocardial infarction Denies family history of Ovarian cancer Prostate cancer Breast cancer Colorectal cancer Social History Smoking Status: Current every day smoker Tobacco Type: Cigarettes Second Hand Exposure: No; Hx Alcohol Use: Yes Alcohol type: hard liquor Hx Substance Use: Yes (PRN prescribed) Prescribed Medications: Marijuana Preferred Language: Divehi Communication Ability: Effective Visual Impairment: Limited Hearing Ability: Normal Publicity Agent Required: No Beliefs That Will Affect Care: None marital status: Single Current Living Situation: Parent and Family Current Living Situation Comment: parents and sister current occupational status: unemployed Feels Safe at Home: Yes Childhood Exposure to Second-Hand Smoke: Yes Diet: regular Dental Care, Regularly: Yes Physical Activity Frequency: 3-4 Times per Week Physical Activity Frequency Comment: biking and walking Seatbelt Use: always Sunscreen Use: Yes (sometimes) Gender Identity: Male Assistive Devices: Glasses Allergies Allergies Allergy/AdvReac Type Severity Reaction Status Date / Time No Known Allergies Allergy Verified 04/15/23 17:48 Home Meds Home Medications Medication Instructions Recorded Confirmed lamotrigine 25 mg tablet (Lamictal) 150 mg DAILY 02/14/23 07/23/23 Previous Rx's Medication Instructions Recorded bupropion HCl 300 mg 24 hr tablet, 300 mg PO QAM #30 tabs 02/18/23 extended release dextroamphetamine-amphetamine ER 15 mg PO QAM #30 caps 02/18/23 15 mg 24hr capsule,extend release (Adderall XR) duloxetine 60 mg capsule,delayed 60 mg PO DAILY #30 caps 03/05/23 release fluticasone propionate 45 2 puff inhalation BID #12 grams 03/07/23 mcg-salmeterol 21 mcg/actuation HFA inhaler (Advair HFA) Results & Data (ED) Vital Signs Vital Signs - 24 hr 07/23/23 02:05 Temperature 36.5 C Temperature Source Temporal Artery Scan Pulse Rate 119 H Respiratory Rate 20 Respiratory Depth Normal Blood Pressure 126/71 Blood Pressure Mean 89 Blood Pressure Position Sitting Pulse Oximetry 98 Oxygen Delivery Method Room Air Sepsis Recent Fever Within 48 Hours No Sepsis New/Unexplained Change in Mental Status No Sepsis Action Taken by Nursing No Action Required Laboratory Data 07/23/23 02:25 07/23/23 02:25 Lab Results 07/23/23 Range/Units 02:25 WBC 8.34 (4.8-10.8) K/ul RBC 5.45 (4.70-6.10) M/uL Hgb 17.3 (14.0-18.0) g/dl Hct 48.3 (42.0-52.0) % MCV 88.6 (80.0-100.0) fL MCH 31.7 (25.0-34.0) pg MCHC 35.8 (32.0-36.0) g/dL RDW Std Deviation 35.9 L (36.4-46.3) fL RDW Coeff of Shantell 11.2 L (11.5-14.5) % Plt Count 289 (130-400) K/uL MPV 9.4 (9.4-12.4) fL Immature Gran % (Auto) 0.4 % Neut % (Auto) 69.9 % Lymph % (Auto) 21.7 % Lane % (Auto) 5.0 % Eos % (Auto) 2.4 % Baso % (Auto) 0.6 % Neut # (Auto) 5.83 (1.40-6.50) K/uL Lymph # (Auto) 1.81 (1.20-3.40) K/uL Lane # (Auto) 0.42 (0.11-0.59) K/uL Eos # (Auto) 0.20 (0.00-0.50) K/uL Baso # (Auto) 0.05 (0.00-0.20) K/uL Immature Gran # (Auto) 0.03 (0.01-0.20) K/uL Sodium 139 (136-145) mmol/L Potassium 3.5 (3.5-5.1) mmol/L Chloride 104 (98-107) mmol/L Carbon Dioxide 28 (21-32) mmol/L Anion Gap 7 (3-11) BUN 12 (6-23) mg/dl Creatinine 1.01 (0.6-1.4) mg/dl Est Cr Clr Drug Dosing 119.5 ml/min Est GFR ( Amer) 122.7 ml/min Est GFR (Non-Af Amer) 105.8 ml/min BUN/Creatinine Ratio 11.9 (10-20) Glucose 85 (70-99(Fasting)) mg/dl Calcium 9.7 (8.6-10.3) mg/dl Total Bilirubin 0.5 (0.2-1.0) mg/dl AST 20 (13-39) U/L ALT 23 (7-52) U/L Alkaline Phosphatase 86 (34-104) U/L Total Protein 7.8 (6.0-8.3) gm/dl Albumin 5.2 H (3.4-5.0) gm/dl Globulin 2.6 (2.5-4.0) gm/dl Albumin/Globulin Ratio 2.0 (0.9-2) TSH 2.098 (0.300-4.500) uIu/ml Salicylates < 3.0 L (3.0-30) mg/dl Acetaminophen < 3 L (10-30) ug/ml Ethyl Alcohol mg/dL < 10.0 (<10.0) mg/dl SARS-CoV-2, RNA, NAAT NEGATIVE (NEGATIVE) Discharge Plan Visit Data Chief Complaint: Mental Health Evaluation Stated Complaint: [facility] ED Provider: Yancy Mendoza Discharge Problem: Depression, Autism spectrum disorder, Suicidal ideation Patient Disposition: Admitted As Inpatient Discharge Instructions Interventions: ED Discharge Assessment Last Done: 07/23/23 05:21
[2023-07-23 03:05] LABS: Globulin 2.6 gm/dl (2.5-4.0); Total Protein 7.8 gm/dl (6.0-8.3)
[2023-07-23 03:12] LABS: Thyroid Stimulating Hormone 2.098 uIu/ml (0.300-4.500)
[2023-07-23 03:30] LABS: Amphetamines+Metham, Urine Pos (Neg); Barbiturates, Urine Neg (Neg); Benzodiazepine, Urine Neg (Neg); Cocaine, Urine Neg (Neg); MDMA (Ecstacy), Urine Pos (Neg); Marijuana, Urine Neg (Neg); Methadone, Urine Neg (Neg); Opiate, Urine Neg (Neg); Phencyclidine, Urine Neg (Neg)
[2023-07-23 03:51] LABS: Acetaminophen < 3 ug/ml (10-30); Salicylate < 3.0 mg/dl (3.0-30)
[2023-07-23] MEDS ORDERED: NICOTINE POLACRILEX 2 MG GUM MT PRN (05:07)
[2023-07-23] MEDS ORDERED: hydrOXYzine HCl 25 MG TAB PO PRN ×4 (05:07→07:00)
[2023-07-23] MEDS ORDERED: ALUMINUM/MAGNESIUM SUSP 30 ML UDC PO PRN ×3 (06:39→07:00)
[2023-07-23] MEDS ORDERED: MAGNESIUM HYDROXIDE SUSP 30 ML UDC PO PRN ×3 (06:39→07:00)
[2023-07-23] MEDS ORDERED: BISMUTH SUBSALICYLATE LIQD 236 ML PO PRN ×3 (06:39→07:00)
[2023-07-23] MEDS ORDERED: ACETAMINOPHEN 325 MG TAB PO PRN ×3 (06:39→07:00)
[2023-07-23] MEDS ORDERED: SODIUM CHLORIDE 0.65% NA SOLN 45 ML (OCEAN) PRN ×3 (06:39→07:00)
--- NOTE | 2023-07-23 09:08 | History & Physical ---
Date of Service July 23, 2023 Impression / Recommendations Humera Ely is a 23 yo man who currently lives in [place] with his parents and younger sister, has a history of ASD, PIPPA, MDD, ADHD, HTN and was admitted on 07/23/23 05:07 on a 201 voluntary commitment for SI with plan to hang himself. Diagnostically consistent with unspecified depressive disorder likely a combination of major depressive disorder with anxious distress and alcohol- induced depressive episode. He also meets criteria for alcohol use disorder given escalation in use in an attempt to treat his anxiety/stress symptoms and likely contributed to by his poor impulse control. He presents with flat affect, very poor insight, minimal eye contact and limited motivation to change his alcohol use all of which is concerning for high acute risk and for which inpatient hospitalization is deemed necessary for safety and stabilization, medication management, improved coping skills and establishment of further outpatient support. Discussed medication treatment options in detail. Discussed risks, benefits and alternatives. He consents to continuing lamictal, Adderall, duloxetine and to trial of mirtazapine for insomnia/depression augmentation and gabapentin prn for off-label use for alcohol use disorder and anxiety/tightness. Wellbutrin to be discontinued given this lowers seizure threshold and may be increasing anxiety in setting of concurrent SNRI use and concurrent dopaminergic activity of Adderall and his extensive caffeine use. Reviewed side effects including but not limited to: GI, CORREA, sexual side effects, and counseled on black box warning of potential for emergence of or increased SI and need to let staff know should this occur or should they feel unsafe. Also discussed importance of seeking emergency care following discharge if this side effect occurs in the future with duloxetine, potential for fatal rash and need for stopping medication if he misses >3-6 days with lamictal; sedation/increased appetite with mirtazapine. The patient's audit score and use history suggests problematic substance use. Brief intervention was offered and accepted. Intervention was greater than 5 minutes in length and included assessing readiness to quit, advice on how to reduce or abstain and to set a specific goal for this hospitalization. 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 The patient is in precontemplative stage with regards to transtheoretical model of change. The patient is advised to decrease consumption due to depressant effects and risk of interaction with prescription medications. He agreed to consider reducing his use and will be provided with recovery materials to continue to educate self on how to cope with their condition without using substances. Overall I spent a total of 78 minutes for this admission including review of chart records, review of labwork, direct evaluation of the patient, counseling the patient, ordering medication, risk assessment, discussion with the psychiatric liason RN and documentation in the electronic health record. (1) Suicidal ideation: (2) Major depression, recurrent: Active/Remission status: in partial remission Qualified Code(s): F33.41 - Major depressive disorder, recurrent, in partial remission (3) Alcohol use disorder: (4) Autism spectrum disorder: (5) ADHD: Attention deficit-hyperactivity disorder type: predominantly inattentive Qualified Code(s): F90.0 - Attention-deficit hyperactivity disorder, predominantly inattentive type (6) Tobacco use: Plan 07/23/2023: The patient was admitted to the [facility] ([facility]) on q15 min checks (behavioral with suicide precautions) for safety. The patient will participate in group, recreational, and milieu therapies and will be offered additional individual and family sessions as clinically appropriate. -Continue prior to admission medications: * Lamictal 150mg qd * Duloxetine 60mg qd * Adderall XR 15mg qd (if home supply can be provided, otherwise will utilize IR alternative in the hospital) -Start mirtazapine 7.5mg HS -Stop Wellbutrin 300mg qd -AWSS with thiamine, folic acid and ativan for scores -Gabapentin 100mg TID prn for anxiety/tightness/agitation Inventory Assets Strengths: supportive relationships, willing to get treatment Needs: safety and stabilization, medication adjustment, additional coping skills, increased outpatient services Suicide Risk Level Suicide Risk Level: High-Moderate (q15 min suicide checks) (SI with plan outside of the hospital, increased depression, poor insight, minimal coping skills, but feels safe in the hospital and feels able to go to providers/RN/staff for support ) Risk Factors Assessment Do You Have Access To A Gun?: Yes (he thinks the ammunition is locked, may have access to parents guns) Protective Factors Assessment Employed: No Psychiatric History Identifying Data SOLIS PEACOCK is a 23-year-old M who currently lives in [place] with his parents and younger sister, has a history of ASD, PIPPA, MDD, ADHD, HTN and was admitted on 07/23/23 05:07 on a 201 voluntary commitment for SI with plan to hang himself. Chief Complaint "Yeah I started to have those thoughts so I came here". History of Present Illness Solis presents for psychiatric admission for worsening depression and SI with plan of hanging himself. He's not sure why these thoughts came on but he started to feel depressed "a few days ago". He reports symptoms of tearfulness, low energy, anhedonia, decreased motivation, self-guilt, hopelessness, decreased appetite (drinks a lot of caffeine and smokes a lot of cigarettes so only eats about once per day), and shifted sleep cycle of sleeping much of the day and up all night. He denies anxiety as a current issue. Feels rather he deals with "stress" "but I'm not sure where it's from", he describes that his muscles "tighten up" and "I get irritable" and that "my skin feels tight". He is currently prescribed psychiatric medications: Wellbutrin ("it's been awhile", feels it helps), Adderall XR (helps a lot, has some loss of appetite), duloxetine (not sure how he's been on this, thinks it may help), lamictal (not sure if this helps, denies any side effects). Psychiatric ROS notable for no current nor history of symptoms of gallo, psychosis, PTSD, OCD nor eating disorder. Self-harmed once in Jan via cutting. Past Psychiatric History Current Psychiatric Diagnosis: MDD, ADHD, autism Outpatient Services: TRISTIAN Raman at [facility] for psychiatry; no current therapist; RONNY with [facility] through [facility] Previous Psych Admissions: Seen by psychiatry consult service Feb 2023 while on medical floor due to RSV with SI [facility] January 2023 [facility] December 2022, April 20222017 Do You Have Access To A Gun?: Yes (he thinks the ammunition is locked, may have access to parents guns) History of Previous Suicide Attempt: No Past Medication Trials: Abilify (a lot of weight gain and increased BP), Vistaril, lexapro, Zoloft Past Head Trauma/Neuro History History of Concussion/Seizure: No Allergies Allergy/AdvReac Type Severity Reaction Status Date / Time No Known Allergies Allergy Verified 04/15/23 17:48 Home Medications Medication Instructions Recorded Confirmed Type lamotrigine 25 mg tablet (Lamictal) 150 mg DAILY 02/14/23 07/23/23 History bupropion HCl 300 mg 24 hr tablet, 300 mg PO QAM #30 tabs 02/18/23 07/23/23 Rx extended release dextroamphetamine-amphetamine ER 15 mg PO QAM #30 caps 02/18/23 07/23/23 Rx 15 mg 24hr capsule,extend release (Adderall XR) duloxetine 60 mg capsule,delayed 60 mg PO DAILY #30 caps 03/05/23 07/23/23 Rx release fluticasone propionate 45 2 puff inhalation BID #12 grams 03/07/23 07/23/23 Rx mcg-salmeterol 21 mcg/actuation HFA inhaler (Advair HFA) Family History Family History of: Suicide Completion (thinks cousins on both side of the family have by suicide) Alcohol History Hx of Alcohol Use Over the Past 12 Months: Yes (about 20 cans of twisted tea in 2 days) AUDIT Total Score: 26 Drinks "whenever I get tense", likes the taste and that it helps him relax. Often drinking every day or every few days. Twisted tea, Mc's hard lemonade 8% or vodka. "I don't keep track" but most of the day. Recently was "on a santizo for 2 weeks in April". Reports consequence of memory loss in the past. Smoking Use Have You Smoked or Used Tobacco Products in the Last 30 Days: Yes tobacco type: cigarettes Smoking Status: Current every day smoker (and using 6mg Zyn pouches) Smoking packs per day: 2 Substance History Hx of Prescription Med Misuse Over the Past 12 Months: No Hx of Over the Counter Med Misuse Over the Past 12 Months: No Hx of Inhalent Misuse Over the Past 12 Months: No Hx of Organic Substance Use Over the Past 12 Months: No Hx of Illegal Substances/Street Drug Use Over Past 12 Months: No Problems as a Result of Past Substance Use: None Identified Tried cannabis a few times, previously had a medical card. Personal History Living Arrangements: Home Highest Grade Completed: High School Graduate Employment Status: Unemployed Marital Status: Single Number Of Children: none Beliefs That Will Affect Care: None Current Legal Problems: No Hx Legal Problems: No Hx Traumatic Life Events: No Patient History Medical History Depression Autism Surgical History History of lingual frenotomy History of wisdom tooth extraction, class I edentulism Family History Father Hypertension Dyslipidemia Mother Asthma Other Myocardial infarction Denies family history of Ovarian cancer Prostate cancer Breast cancer Colorectal cancer Social History Smoking Status: Current every day smoker Tobacco Type: Cigarettes Second Hand Exposure: No; Hx Alcohol Use: Yes Alcohol type: hard liquor Hx Substance Use: Yes (PRN prescribed) Prescribed Medications: Marijuana Preferred Language: Armenian Communication Ability: Effective Visual Impairment: Limited Hearing Ability: Normal 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 Beliefs That Will Affect Care: None marital status: Single Current Living Situation: Parent and Family Current Living Situation Comment: parents and sister current occupational status: unemployed Feels Safe at Home: Yes Childhood Exposure to Second-Hand Smoke: Yes Diet: regular Dental Care, Regularly: Yes Physical Activity Frequency: 3-4 Times per Week Physical Activity Frequency Comment: biking and walking Seatbelt Use: always Sunscreen Use: Yes (sometimes) Gender Identity: Male Assistive Devices: Glasses Review of Systems Review of Systems: All systems reviewed & are unremarkable except as noted in HPI & below Physical Exam Psychiatric: Orientation: alert and oriented x 3 Apperance: appropriately dressed and + disheveled Eye Contact: + poor eye contact Motor Behavior: no abnormal motor movements Speech: + abnormal rate/rhythm/volume of speech (very soft, mumbled at times) Affect: + depressed affect and + flat affect Mood: + depressed mood Thought Process: + concrete thought process (brief) Thought Content: reality based without delusions Suicidal Thoughts: denies suicidal intent; + reports suicidal thoughts (intermittent thoughts ) and + reports suicidal plan (none for hospital, outside via hanging) Homicidal Thoughts: denies homicidal thoughts Hallucinations: no auditory hallucinations and no visual hallucinations Cognition: recent memory grossly intact, remote memory grossly intact, attention grossly intact and language grossly intact Insight: + poor insight Judgment: + limited judgement Vital Signs (Past 24 Hours): Last Vital Signs Temp 36.6 C 07/23/23 06:18 Pulse 77 07/23/23 06:18 Resp 16 07/23/23 06:18 BP 120/76 07/23/23 06:18 Pulse Ox 98 07/23/23 06:18 O2 Del Method Room Air 07/23/23 06:18 Exam Statement: A physical exam was performed in the ED by Dr. Mendoza for the purposes of medical clearance. I accept that physical as correct and adequate for the purposes of the inpatient physical exam. Results & Data ([facility]) Laboratory Results Laboratory Results - last 24 hr 07/23/23 07/23/23 02:25 Unknown WBC 8.34 RBC 5.45 Hgb 17.3 Hct 48.3 MCV 88.6 MCH 31.7 MCHC 35.8 RDW Std Deviation 35.9 L RDW Coeff of Shantell 11.2 L Plt Count 289 MPV 9.4 Immature Gran % (Auto) 0.4 Neut % (Auto) 69.9 Lymph % (Auto) 21.7 [place] % (Auto) 5.0 Eos % (Auto) 2.4 Baso % (Auto) 0.6 Neut # (Auto) 5.83 Lymph # (Auto) 1.81 [place] # (Auto) 0.42 Eos # (Auto) 0.20 Baso # (Auto) 0.05 Immature Gran # (Auto) 0.03 Sodium 139 Potassium 3.5 Chloride 104 Carbon Dioxide 28 Anion Gap 7 BUN 12 Creatinine 1.01 Est Cr Clr Drug Dosing 119.5 Est GFR ( Amer) 122.7 Est GFR (Non-Af Amer) 105.8 BUN/Creatinine Ratio 11.9 Glucose 85 Calcium 9.7 Total Bilirubin 0.5 AST 20 ALT 23 Alkaline Phosphatase 86 Total Protein 7.8 Albumin 5.2 H Globulin 2.6 Albumin/Globulin Ratio 2.0 TSH 2.098 Urine Color Yellow Urine Appearance Clear Urine pH 7.0 Ur Specific [place] 1.021 Urine Protein Negative Urine Glucose (UA) Negative Urine Ketones Negative Urine Blood Negative Urine Nitrite Negative Urine Bilirubin Negative Urine Urobilinogen Negative Ur Leukocyte Esterase Negative Salicylates < 3.0 L Urine Opiates Screen Neg Ur Methadone, Qual Neg Acetaminophen < 3 L Urine Barbiturates Neg Ur Phencyclidine (PCP) Neg U Amphetamines Confirm Pending U Amphetamin/Meth Scrn Pos H U Methamphetamin Confrm Pending Urine MDEA Pending MDMA (Ecstasy) Screen Pos H MDMA Pending Urine MDMA Pending U Benzodiazepines Scrn Neg Ur Cocaine Metabolite Neg U Marijuana (THC) Screen Neg Drug Screen Comment Pending Ethyl Alcohol mg/dL < 10.0 SARS-CoV-2, RNA, NAAT NEGATIVE Current Inpatient Medications Current Inpatient Medications: Current Inpatient Medications Acetaminophen (Acetaminophen 325 Mg Tab) 650 mg PO Q4H PRN PRN Reason: Headache or Minor Fever Stop: 08/22/23 06:59 Al Hydrox/Mg Hydrox/Simethicone (Aluminum/Magnesium Susp 30 Ml Udc) 30 ml PO Q4H PRN PRN Reason: GI Upset Stop: 08/22/23 06:59 Bismuth Subsalicylate (Bismuth Subsalicylate Liqd 236 Ml) 15 ml PO PRN PRN PRN Reason: Loose Stool Stop: 08/22/23 06:59 Hydroxyzine HCl (Hydroxyzine Hcl 25 Mg Tab) 50 mg PO HSZ PRN PRN Reason: Insomnia Stop: 08/22/23 06:59 Hydroxyzine HCl (Hydroxyzine Hcl 25 Mg Tab) 25 mg PO Q4H PRN PRN Reason: Anxiety Stop: 08/22/23 06:59 Magnesium Hydroxide (Magnesium Hydroxide Susp 30 Ml Udc) 30 ml PO DAILY PRN PRN Reason: Constipation Stop: 08/22/23 06:59 Miscellaneous (Remove Nicoderm Patch) 1 each N/A DAILY@0859 [facility] Stop: 08/22/23 08:58 Nicotine (Nicotine 21 Mg/24 Hr Tdsy) 1 patch TD QAM [facility] Stop: 08/22/23 08:59 Sodium Chloride (Sodium Chloride 0.65% Na Soln 45 Ml ([place])) 1 - 2 sprays NA PRN PRN PRN Reason: Nasal Dryness/Congestion Stop: 08/22/23 06:59
[2023-07-23] MEDS: NICOTINE 21 MG/24 HR TDSY TD SCH (09:42)
[2023-07-23] MEDS ORDERED: LORazepam 1 MG TAB PO PRN ×3 (10:53)
[2023-07-23] MEDS ORDERED: Ativan PO Alcohol Withdrawal--Active Protocol PO PRN (10:53)
[2023-07-23] MEDS: DEXTROAMPHETAMINE/AMPHETAMINE ER 5 MG CAP PO SCH (11:52)
[2023-07-23] MEDS: FOLIC ACID 1 MG TAB PO SCH (11:53)
[2023-07-23] MEDS: DULoxetine HCL 60 MG CAP PO SCH (11:55)
[2023-07-23] MEDS: THIAMINE HCL 100 MG TAB PO SCH (11:55)
[2023-07-23] MEDS: NICOTINE POLACRILEX 2 MG GUM MT PRN (13:26)
[2023-07-23] MEDS: MIRTAZAPINE TAB 15 MG TAB PO SCH (21:18)
--- NOTE | 2023-07-24 09:18 | Psychiatric Progress Note ---
Date of Service July 24, 2023 Impression / Recommendations Impression Solis is a 23 yo man who currently lives in [place] with his parents and younger sister, has a history of ASD, PIPPA, MDD, ADHD, HTN and was admitted on 07/23/23 05:07 on a 201 voluntary commitment for SI with plan to hang himself. Diagnostically consistent with unspecified depressive disorder likely a combination of major depressive disorder with anxious distress and alcohol- induced depressive episode. He also meets criteria for alcohol use disorder given escalation in use in an attempt to treat his anxiety/stress symptoms and likely contributed to by his poor impulse control. He presents with flat affect, very poor insight, minimal eye contact and limited motivation to change his alcohol use all of which is concerning for high acute risk and for which inpatient hospitalization is deemed necessary for safety and stabilization, medication management, improved coping skills and establishment of further outpatient support. 07/24/2023: Appears slightly less depressed today, and reports some subjective improvement, but still with very poor insight into any possible reasons for improvement. Irritable at times with questions attempting to discuss his mood and experience in the hospital. Not scoring on AWSS for now. Tolerating mirtazapine and discontinuation of Wellbutrin. Overall, I spent a total of 26 minutes on this case including meeting with the patient, reviewing the chart, nursing report, multidisciplinary team meeting, orders, and documentation. (1) Suicidal ideation: (2) Major depression, recurrent: (3) Alcohol use disorder: (4) Autism spectrum disorder: (5) ADHD: (6) Tobacco use: Plan 07/24/2023: Continue current medications and tx plan. Once outside of acute withdrawal period can explore option for naltrexone. 07/23/2023: The patient was admitted to the [facility] ([facility] inpatient mental health unit) on q15 min checks (behavioral with suicide precautions) for safety. The patient will participate in group, recreational, and milieu therapies and will be offered additional individual and family sessions as clinically appropriate. -Continue prior to admission medications: * Lamictal 150mg qd * Duloxetine 60mg qd * Adderall XR 15mg qd (if home supply can be provided, otherwise will utilize IR alternative in the hospital) -Start mirtazapine 7.5mg HS -Stop Wellbutrin 300mg qd -AWSS with thiamine, folic acid and ativan for scores -Gabapentin 100mg TID prn for anxiety/tightness/agitation Inventory Assets Strengths: supportive relationships, willing to get treatment Needs: safety and stabilization, medication adjustment, additional coping skills, increased outpatient services Suicide Risk Level Suicide Risk Level: Moderate (q15 min suicide checks) (SI with plan outside of the hospital, increased depression, poor insight, minimal coping skills, but mood now improving a bit, feels safe in the hospital and feels able to go to providers/RN/staff for support ) Risk Factors Assessment Do You Have Access To A Gun?: Yes (he thinks the ammunition is locked, may have access to parents guns) Protective Factors Assessment Employed: No Interval History Identifying Information SOLIS PEACOCK is a 23-year-old M who currently lives in [place] with his parents and younger sister, has a history of ASD, PIPPA, MDD, ADHD, HTN and was admitted on 07/23/23 05:07 on a 201 voluntary commitment for SI with plan to hang himself. Chief Complaint "I don't know". Review of Systems Sleep Information Total Hours of Sleep: 6.5 Sleep Comments: HS Remeron Meal Information Percent Meal Consumed - Breakfast: 100 Percent Meal Consumed - Lunch: 100 Percent Meal Consumed - Dinner: 100 Subjective Subjective Patient was seen & assessed and interval progress reviewed with treatment team nursing and social work. Napped during the day but attended some evening groups. Made an inappropriate comment about wanting Whiskey during a group. Not scoring on the AWSS. Slept about 8 hours overnight. Reports some improvement in his mood today, he's not sure why. later says "maybe because I'm not at home" but then cannot identify that is different about the hospital or difficult at home. Has not tried gabapentin as denies any tightness/stress since being admitted. He's not sure if the mirtazapine helped at all with sleep as he feels he was already tired last night from being admitted the previous night. Irritable with attempts at further questions. Physical Exam Psychiatric Orientation: alert and oriented x 3 Apperance: appropriately dressed and + disheveled Eye Contact: + poor eye contact Motor Behavior: no abnormal motor movements Speech: + abnormal rate/rhythm/volume of speech (soft) Affect: + flat affect Mood: + depressed mood and + irritable mood Thought Process: + concrete thought process (brief) Thought Content: reality based without delusions Suicidal Thoughts: denies suicidal plan (none for hospital, outside via hanging) and denies suicidal intent; + reports suicidal thoughts (intermittent thoughts ) Homicidal Thoughts: denies homicidal thoughts Hallucinations: no auditory hallucinations and no visual hallucinations Cognition: recent memory grossly intact, remote memory grossly intact, attention grossly intact and language grossly intact Insight: + poor insight Judgment: + limited judgement Vital Signs (Past 24 Hours) Last Vital Signs Temp 36.6 C 07/24/23 06:35 Pulse 64 07/24/23 06:35 Resp 16 07/24/23 06:35 BP 101/64 07/24/23 06:35 Pulse Ox 98 07/24/23 06:35 O2 Del Method Room Air 07/24/23 06:35 Results & Data ([facility]) Current Inpatient Medications Current Inpatient Medications: Current Inpatient Medications Acetaminophen (Acetaminophen 325 Mg Tab) 650 mg PO Q4H PRN PRN Reason: Headache or Minor Fever Stop: 08/22/23 06:59 Al Hydrox/Mg Hydrox/Simethicone (Aluminum/Magnesium Susp 30 Ml Udc) 30 ml PO Q4H PRN PRN Reason: GI Upset Stop: 08/22/23 06:59 Amphetamine/Dextroamphetamine (Dextroamphetamine/Amphetamine Er 5 Mg Cap) 15 mg PO QAM [facility] Stop: 08/06/23 11:44 Last Admin: 07/23/23 11:52 Dose: 15 mg Bismuth Subsalicylate (Bismuth Subsalicylate Liqd 236 Ml) 15 ml PO PRN PRN PRN Reason: Loose Stool Stop: 08/22/23 06:59 Duloxetine HCl (Duloxetine Hcl 60 Mg Cap) 60 mg PO DAILY [facility] Stop: 08/22/23 10:59 Last Admin: 07/23/23 11:55 Dose: 60 mg Folic Acid (Folic Acid 1 Mg Tab) 1 mg PO QAM [facility] Stop: 08/22/23 10:59 Last Admin: 07/23/23 11:53 Dose: 1 mg Gabapentin (Gabapentin 100 Mg Cap) 100 mg PO TID PRN PRN Reason: Agitation/Tightness Stop: 08/22/23 13:59 Hydroxyzine HCl (Hydroxyzine Hcl 25 Mg Tab) 50 mg PO HSZ PRN PRN Reason: Insomnia Stop: 08/22/23 06:59 Hydroxyzine HCl (Hydroxyzine Hcl 25 Mg Tab) 25 mg PO Q4H PRN PRN Reason: Anxiety Stop: 08/22/23 06:59 Lamotrigine (Lamotrigine 100 Mg Tab) 150 mg PO DAILY [facility]; Protocol Stop: 08/23/23 08:59 Lorazepam (Lorazepam 1 Mg Tab) 1 mg PO Q2H PRN; Protocol PRN Reason: EtOH Withdrawal AWSS Score 6,7 Stop: 08/22/23 10:52 Lorazepam (Lorazepam 1 Mg Tab) 3 mg PO ONCE PRN; Protocol PRN Reason: EtOH Withdrawal AWSS Score 10 & above Lorazepam (Lorazepam 1 Mg Tab) 2 mg PO Q1H PRN; Protocol PRN Reason: EtOH Withdrawal AWSS Score 8,9 Stop: 08/22/23 10:52 Magnesium Hydroxide (Magnesium Hydroxide Susp 30 Ml Udc) 30 ml PO DAILY PRN PRN Reason: Constipation Stop: 08/22/23 06:59 Mirtazapine (Mirtazapine Tab 15 Mg Tab) 7.5 mg PO HS [facility] Stop: 08/22/23 21:59 Last Admin: 07/23/23 21:18 Dose: 7.5 mg Miscellaneous (Remove Nicoderm Patch) 1 each N/A DAILY@0859 [facility] Stop: 08/22/23 08:58 Last Admin: 07/23/23 10:06 Dose: Not Given Nicotine (Nicotine 21 Mg/24 Hr Tdsy) 1 patch TD QAM [facility] Stop: 08/22/23 08:59 Last Admin: 07/23/23 09:42 Dose: 1 patch Nicotine Polacrilex (Nicotine Polacrilex 2 Mg Gum) 2 piece MT PRN PRN PRN Reason: cravings Stop: 08/22/23 13:16 Last Admin: 07/23/23 17:38 Dose: 2 piece Sodium Chloride (Sodium Chloride 0.65% Na Soln 45 Ml ([place])) 1 - 2 sprays NA PRN PRN PRN Reason: Nasal Dryness/Congestion Stop: 08/22/23 06:59 Thiamine HCl (Thiamine Hcl 100 Mg Tab) 100 mg PO QAM [facility] Stop: 08/22/23 10:59 Last Admin: 07/23/23 11:55 Dose: 100 mg Mental Health & Subst Abuse Tx Psychiatrist Name of Psychiatrist: Chantale Cisse Date Of Appointment With Psychiatric Provider: 08/04/2023 Time of Appointment with Psychiatrist: 2:30 pm Therapist Name of Therapist: Does not want one Date of Therapist Appointment: uncertain Vegetable Buncher Name of Vegetable Buncher: Misbah from [employer] Date of Appointment with Vegetable Buncher: 07/31/23 Time of Appointment with Vegetable Buncher: 3:00 pm Post Discharge Appointments Primary Care Physician Name Of Family Doctor/PCP: Dr. Amaral (2) Major depression, recurrent Active/Remission status: in partial remission Qualified Code(s): F33.41 - Major depressive disorder, recurrent, in partial remission (5) ADHD Attention deficit-hyperactivity disorder type: predominantly inattentive Qualified Code(s): F90.0 - Attention-deficit hyperactivity disorder, predominantly inattentive type
[2023-07-24] MEDS: lamoTRIgine 100 MG TAB PO SCH (09:46)
--- NOTE | 2023-07-25 09:17 | Psychiatric Progress Note ---
Date of Service July 25, 2023 Impression / Recommendations Humera Ely is a 23 yo man who currently lives in [place] with his parents and younger sister, has a history of ASD, PIPPA, MDD, ADHD, HTN and was admitted on 07/23/23 05:07 on a 201 voluntary commitment for SI with plan to hang himself. Diagnostically consistent with unspecified depressive disorder likely a combination of major depressive disorder with anxious distress and alcohol- induced depressive episode. He also meets criteria for alcohol use disorder given escalation in use in an attempt to treat his anxiety/stress symptoms and likely contributed to by his poor impulse control. He presents with flat affect, very poor insight, minimal eye contact and limited motivation to change his alcohol use all of which is concerning for high acute risk and for which inpatient hospitalization is deemed necessary for safety and stabilization, medication management, improved coping skills and establishment of further outpatient support. 07/25/2023: Ongoing depression with intermittent SI, less irritable today, brighter overall with his peers. Ongoing motivational interviewing regarding his alcohol use, he consents to starting naltrexone to help with binge drinking and reducing cravings. Reviewed side effects including but not limited to GI symptoms, liver function changes. Discontinue AWSS as he hasn't been scoring at all. Overall, I spent a total of 25 minutes on this case including meeting with the patient, reviewing the chart, nursing report, multidisciplinary team meeting, orders, and documentation. (1) Suicidal ideation: (2) Major depression, recurrent: (3) Alcohol use disorder: (4) Autism spectrum disorder: (5) ADHD: (6) Tobacco use: Plan 07/25/2023: -Start naltrexone 25mg with dinner 07/24/2023: Continue current medications and tx plan. Once outside of acute withdrawal period can explore option for naltrexone. 07/23/2023: The patient was admitted to the [facility] ([facility] inpatient mental health unit) on q15 min checks (behavioral with suicide precautions) for safety. The patient will participate in group, recreational, and milieu therapies and will be offered additional individual and family sessions as clinically appropriate. -Continue prior to admission medications: * Lamictal 150mg qd * Duloxetine 60mg qd * Adderall XR 15mg qd (if home supply can be provided, otherwise will utilize IR alternative in the hospital) -Start mirtazapine 7.5mg HS -Stop Wellbutrin 300mg qd -AWSS with thiamine, folic acid and ativan for scores -Gabapentin 100mg TID prn for anxiety/tightness/agitation Inventory Assets Strengths: supportive relationships, willing to get treatment Needs: safety and stabilization, medication adjustment, additional coping skills, increased outpatient services Suicide Risk Level Suicide Risk Level: Moderate (q15 min suicide checks) (SI with plan outside of the hospital, increased depression, poor insight, minimal coping skills, but mood now improving a bit, feels safe in the hospital and feels able to go to providers/RN/staff for support ) Risk Factors Assessment Do You Have Access To A Gun?: Yes (he thinks the ammunition is locked, may have access to parents guns) Protective Factors Assessment Employed: No Interval History Identifying Information ROMANA PEACOCK is a 23-year-old M who currently lives in [place] with his parents and younger sister, has a history of ASD, PIPPA, MDD, ADHD, HTN and was admitted on 07/23/23 05:07 on a 201 voluntary commitment for SI with plan to hang himself. Chief Complaint "I couldn't believe I had drank half the bottle". Review of Systems Sleep Information Total Hours of Sleep: 7 Sleep Comments: HS Remeron Meal Information Percent Meal Consumed - Breakfast: 100 Percent Meal Consumed - Lunch: 100 Percent Meal Consumed - Dinner: 100 Subjective Subjective Patient was seen & assessed and interval progress reviewed with treatment team nursing and social work. Very bright in group, teasing peers. Much of his behavior in groups consistent with younger developmental age. Continues to discuss alcohol a lot, not interested in making changes to this. Today reports his mood is "fine". Experienced SI earlier today, he isn't sure why, attributes it to his depression being worse and notes he felt more tired today which happens when he is depressed. Had a good visit with his mom last night. He is agreeable to starting naltrexone, describes struggling to control his alcohol use and that he often loses track of how many drinks he has consumed, thinks naltrexone will be helpful for this. Physical Exam Psychiatric Orientation: alert and oriented x 3 Apperance: appropriately dressed and + disheveled Eye Contact: + fair eye contact Motor Behavior: no abnormal motor movements Speech: normal rate/rhythm/volume of speech Affect: + flat affect Mood: + depressed mood and + irritable mood (less irritable today) Thought Process: linear/logical thought process Thought Content: reality based without delusions Suicidal Thoughts: denies suicidal plan (none for hospital, outside via hanging) and denies suicidal intent; + reports suicidal thoughts (intermittent thoughts ) Homicidal Thoughts: denies homicidal thoughts Hallucinations: no auditory hallucinations and no visual hallucinations Cognition: recent memory grossly intact, remote memory grossly intact, attention grossly intact and language grossly intact Insight: + limited insight Judgment: + limited judgement Vital Signs (Past 24 Hours) Last Vital Signs Temp 36.5 C 07/25/23 06:00 Pulse 84 07/25/23 06:43 Resp 18 07/25/23 06:00 BP 100/71 07/25/23 06:43 Pulse Ox 96 07/24/23 18:35 O2 Del Method Room Air 07/24/23 18:35 Results & Data ([facility]) Current Inpatient Medications Current Inpatient Medications: Current Inpatient Medications Acetaminophen (Acetaminophen 325 Mg Tab) 650 mg PO Q4H PRN PRN Reason: Headache or Minor Fever Stop: 08/22/23 06:59 Al Hydrox/Mg Hydrox/Simethicone (Aluminum/Magnesium Susp 30 Ml Udc) 30 ml PO Q4H PRN PRN Reason: GI Upset Stop: 08/22/23 06:59 Amphetamine/Dextroamphetamine (Dextroamphetamine/Amphetamine Er 5 Mg Cap) 15 mg PO QAM [facility] Stop: 08/06/23 11:44 Last Admin: 07/24/23 09:47 Dose: 15 mg Bismuth Subsalicylate (Bismuth Subsalicylate Liqd 236 Ml) 15 ml PO PRN PRN PRN Reason: Loose Stool Stop: 08/22/23 06:59 Duloxetine HCl (Duloxetine Hcl 60 Mg Cap) 60 mg PO DAILY [facility] Stop: 08/22/23 10:59 Last Admin: 07/24/23 09:47 Dose: 60 mg Folic Acid (Folic Acid 1 Mg Tab) 1 mg PO QAM [facility] Stop: 08/22/23 10:59 Last Admin: 07/24/23 09:46 Dose: 1 mg Gabapentin (Gabapentin 100 Mg Cap) 100 mg PO TID PRN PRN Reason: Agitation/Tightness Stop: 08/22/23 13:59 Hydroxyzine HCl (Hydroxyzine Hcl 25 Mg Tab) 50 mg PO HSZ PRN PRN Reason: Insomnia Stop: 08/22/23 06:59 Hydroxyzine HCl (Hydroxyzine Hcl 25 Mg Tab) 25 mg PO Q4H PRN PRN Reason: Anxiety Stop: 08/22/23 06:59 Lamotrigine (Lamotrigine 100 Mg Tab) 150 mg PO DAILY [facility]; Protocol Stop: 08/23/23 08:59 Last Admin: 07/24/23 09:46 Dose: 150 mg Lorazepam (Lorazepam 1 Mg Tab) 1 mg PO Q2H PRN; Protocol PRN Reason: EtOH Withdrawal AWSS Score 6,7 Stop: 08/22/23 10:52 Lorazepam (Lorazepam 1 Mg Tab) 3 mg PO ONCE PRN; Protocol PRN Reason: EtOH Withdrawal AWSS Score 10 & above Lorazepam (Lorazepam 1 Mg Tab) 2 mg PO Q1H PRN; Protocol PRN Reason: EtOH Withdrawal AWSS Score 8,9 Stop: 08/22/23 10:52 Magnesium Hydroxide (Magnesium Hydroxide Susp 30 Ml Udc) 30 ml PO DAILY PRN PRN Reason: Constipation Stop: 08/22/23 06:59 Mirtazapine (Mirtazapine Tab 15 Mg Tab) 7.5 mg PO HS [facility] Stop: 08/22/23 21:59 Last Admin: 07/24/23 21:30 Dose: 7.5 mg Miscellaneous (Remove Nicoderm Patch) 1 each N/A DAILY@0859 [facility] Stop: 08/22/23 08:58 Last Admin: 07/24/23 09:51 Dose: 1 each Nicotine (Nicotine 21 Mg/24 Hr Tdsy) 1 patch TD QAM [facility] Stop: 08/22/23 08:59 Last Admin: 07/24/23 09:49 Dose: 1 patch Nicotine Polacrilex (Nicotine Polacrilex 2 Mg Gum) 2 piece MT PRN PRN PRN Reason: cravings Stop: 08/22/23 13:16 Last Admin: 07/24/23 19:03 Dose: 2 piece Sodium Chloride (Sodium Chloride 0.65% Na Soln 45 Ml ([place])) 1 - 2 sprays NA PRN PRN PRN Reason: Nasal Dryness/Congestion Stop: 08/22/23 06:59 Thiamine HCl (Thiamine Hcl 100 Mg Tab) 100 mg PO QAM [facility] Stop: 08/22/23 10:59 Last Admin: 07/24/23 09:47 Dose: 100 mg Mental Health & Subst Abuse Tx Psychiatrist Name of Psychiatrist: Chantale Cisse Date Of Appointment With Psychiatric Provider: 08/04/2023 Time of Appointment with Psychiatrist: 2:30 pm Therapist Name of Therapist: Does not want one Date of Therapist Appointment: uncertain Blueprint Trimmer Name of Blueprint Trimmer: Misbah from [employer] Date of Appointment with Blueprint Trimmer: 07/31/23 Time of Appointment with Blueprint Trimmer: 3:00 pm Post Discharge Appointments Primary Care Physician Name Of Family Doctor/PCP: Dr. Amaral (2) Major depression, recurrent Active/Remission status: in partial remission Qualified Code(s): F33.41 - Major depressive disorder, recurrent, in partial remission (5) ADHD Attention deficit-hyperactivity disorder type: predominantly inattentive Qualified Code(s): F90.0 - Attention-deficit hyperactivity disorder, predominantly inattentive type
[2023-07-25] MEDS: NALTREXONE HCL 50 MG TAB PO SCH (17:43)
[2023-07-25] MEDS: hydrOXYzine HCl 25 MG TAB PO PRN (22:59)
[2023-07-25] MEDS: GABAPENTIN 100 MG CAP PO PRN (23:10)
--- NOTE | 2023-07-26 14:47 | Psychiatric Progress Note ---
Date of Service July 26, 2023 Impression / Recommendations Impression Solis is a 23 yo man who currently lives in [place] with his parents and younger sister, has a history of ASD, PIPPA, MDD, ADHD, HTN and was admitted on 07/23/23 05:07 on a 201 voluntary commitment for SI with plan to hang himself. Diagnostically consistent with unspecified depressive disorder likely a combination of major depressive disorder with anxious distress and alcohol- induced depressive episode. He also meets criteria for alcohol use disorder given escalation in use in an attempt to treat his anxiety/stress symptoms and likely contributed to by his poor impulse control. He presents with flat affect, very poor insight, minimal eye contact and limited motivation to change his alcohol use all of which is concerning for high acute risk and for which inpatient hospitalization is deemed necessary for safety and stabilization, medication management, improved coping skills and establishment of further outpatient support. 07/26/23: Pt presents multiple past MDEs. Coping with alcohol. Contemplative about quitting. Plan to clarify history and med hx with pt mother. Tolerating naltrexone well. (1) Suicidal ideation: (2) Major depression, recurrent: (3) Alcohol use disorder: (4) Autism spectrum disorder: (5) ADHD: (6) Tobacco use: Plan 07/26/23: Continue naltrexone 25mg with dinner, plan to increase tomorrow. 07/25/2023: -Start naltrexone 25mg with dinner 07/24/2023: Continue current medications and tx plan. Once outside of acute withdrawal period can explore option for naltrexone. 07/23/2023: The patient was admitted to the [facility] ([facility] inpatient mental health unit) on q15 min checks (behavioral with suicide precautions) for safety. The patient will participate in group, recreational, and milieu therapies and will be offered additional individual and family sessions as clinically appropriate. -Continue prior to admission medications: * Lamictal 150mg qd * Duloxetine 60mg qd * Adderall XR 15mg qd (if home supply can be provided, otherwise will utilize IR alternative in the hospital) -Start mirtazapine 7.5mg HS -Stop Wellbutrin 300mg qd -AWSS with thiamine, folic acid and ativan for scores -Gabapentin 100mg TID prn for anxiety/tightness/agitation Inventory Assets Strengths: supportive relationships, willing to get treatment Needs: safety and stabilization, medication adjustment, additional coping skills, increased outpatient services Suicide Risk Level Suicide Risk Level: Moderate (q15 min suicide checks) (SI with plan outside of the hospital, increased depression, poor insight, minimal coping skills, but mood now improving a bit, feels safe in the hospital and feels able to go to providers/RN/staff for support ) Suicide Risk Level Comments: High-Moderate due to severe depression with SI with plan prior to admission but feels safe in the hospital, able to safety contract and agrees to let nursing/staff know should they develop plan, intent or feel unable to remain safe. Risk Factors Assessment Do You Have Access To A Gun?: Yes (he thinks the ammunition is locked, may have access to parents guns) Protective Factors Assessment Employed: No Interval History Identifying Information SOLIS PEACOCK is a 23-year-old M who currently lives in [place] with his parents and younger sister, has a history of ASD, PIPPA, MDD, ADHD, HTN and was admitted on 07/23/23 05:07 on a 201 voluntary commitment for SI with plan to hang himself. Chief Complaint "[]". Review of Systems Sleep Information Total Hours of Sleep: 6 Sleep Comments: HS Remeron Meal Information Percent Meal Consumed - Breakfast: 100 Percent Meal Consumed - Lunch: 25 Percent Meal Consumed - Dinner: 100 Subjective Subjective Patient was seen & assessed and interval progress reviewed with treatment team nursing and social work The patient appears to have a depressed affect and is oftentimes looking down. He confirms multiple past episodes of low mood excess sleep without feeling restorative, poor self-care and not showering, low energy. Reports he still has pleasure in activities such as playing video games. He reports being unsure of his past medications and medication changes however he does not recall any in the past few months. Continues to have 1-2 awakenings at night and is able to go back to sleep. He reports only taking melatonin for sleep in the past. He reports drinking more alcohol to cope with his symptoms. He is tolerating naltrexone well and denies any known side effects. He reports minimal effect of nightly mirtazapine. Physical Exam Mental Examination Appearance: Unkempt Eye Contact: Avoids Eye Contact Motor Behavior: Slowed Speech: Soft and Delayed Mood: Sad Affect: Flat, Sad and Withdrawn Thought Process: Slowed Thinking Hallucinations: None Insight: Poor Judgement: Poor Vital Signs (Past 24 Hours) Last Vital Signs Temp 36.5 C 07/26/23 06:36 Pulse 91 H 07/26/23 06:38 Resp 16 07/26/23 06:36 BP 99/67 L 07/26/23 06:38 Pulse Ox 96 07/24/23 18:35 O2 Del Method Room Air 07/24/23 18:35 Results & Data ([facility]) Current Inpatient Medications Current Inpatient Medications: Current Inpatient Medications Acetaminophen (Acetaminophen 325 Mg Tab) 650 mg PO Q4H PRN PRN Reason: Headache or Minor Fever Stop: 08/22/23 06:59 Al Hydrox/Mg Hydrox/Simethicone (Aluminum/Magnesium Susp 30 Ml Udc) 30 ml PO Q4H PRN PRN Reason: GI Upset Stop: 08/22/23 06:59 Amphetamine/Dextroamphetamine (Dextroamphetamine/Amphetamine Er 5 Mg Cap) 15 mg PO QAM DARIANA Stop: 08/06/23 11:44 Last Admin: 07/26/23 09:22 Dose: 15 mg Bismuth Subsalicylate (Bismuth Subsalicylate Liqd 236 Ml) 15 ml PO PRN PRN PRN Reason: Loose Stool Stop: 08/22/23 06:59 Duloxetine HCl (Duloxetine Hcl 60 Mg Cap) 60 mg PO DAILY DARIANA Stop: 08/22/23 10:59 Last Admin: 07/26/23 09:22 Dose: 60 mg Gabapentin (Gabapentin 100 Mg Cap) 100 mg PO TID PRN PRN Reason: Agitation/Tightness Stop: 08/22/23 13:59 Last Admin: 07/25/23 23:10 Dose: 100 mg Hydroxyzine HCl (Hydroxyzine Hcl 25 Mg Tab) 50 mg PO HSZ PRN PRN Reason: Insomnia Stop: 08/22/23 06:59 Last Admin: 07/25/23 22:59 Dose: 50 mg Hydroxyzine HCl (Hydroxyzine Hcl 25 Mg Tab) 25 mg PO Q4H PRN PRN Reason: Anxiety Stop: 08/22/23 06:59 Lamotrigine (Lamotrigine 100 Mg Tab) 150 mg PO DAILY DARIANA; Protocol Stop: 08/23/23 08:59 Last Admin: 07/26/23 09:22 Dose: 150 mg Magnesium Hydroxide (Magnesium Hydroxide Susp 30 Ml Udc) 30 ml PO DAILY PRN PRN Reason: Constipation Stop: 08/22/23 06:59 Mirtazapine (Mirtazapine Tab 15 Mg Tab) 7.5 mg PO HS DARIANA Stop: 08/22/23 21:59 Last Admin: 07/25/23 22:08 Dose: 7.5 mg Miscellaneous (Remove Nicoderm Patch) 1 each N/A DAILY@0859 DARIANA Stop: 08/22/23 08:58 Last Admin: 07/26/23 09:23 Dose: 1 each Naltrexone HCl (Naltrexone Hcl 50 Mg Tab) 25 mg PO DAILYBD DARIANA Stop: 08/24/23 17:14 Last Admin: 07/25/23 17:43 Dose: 25 mg Nicotine (Nicotine 21 Mg/24 Hr Tdsy) 1 patch TD QAM DARIANA Stop: 08/22/23 08:59 Last Admin: 07/26/23 09:21 Dose: 1 patch Nicotine Polacrilex (Nicotine Polacrilex 2 Mg Gum) 2 piece MT PRN PRN PRN Reason: cravings Stop: 08/22/23 13:16 Last Admin: 07/24/23 19:03 Dose: 2 piece Sodium Chloride (Sodium Chloride 0.65% Na Soln 45 Ml ([place])) 1 - 2 sprays NA PRN PRN PRN Reason: Nasal Dryness/Congestion Stop: 08/22/23 06:59 Mental Health & Subst Abuse Tx Psychiatrist Name of Psychiatrist: Chantale Cisse Date Of Appointment With Psychiatric Provider: 08/04/2023 Time of Appointment with Psychiatrist: 2:30 pm Therapist Name of Therapist: Does not want one Date of Therapist Appointment: uncertain Brewery Representative Name of Brewery Representative: Misbah from [employer] Date of Appointment with Brewery Representative: 07/31/23 Time of Appointment with Brewery Representative: 3:00 pm Post Discharge Appointments Primary Care Physician Name Of Family Doctor/PCP: Dr. Amaral (2) Major depression, recurrent Active/Remission status: in partial remission Qualified Code(s): F33.41 - Major depressive disorder, recurrent, in partial remission (5) ADHD Attention deficit-hyperactivity disorder type: predominantly inattentive Qualified Code(s): F90.0 - Attention-deficit hyperactivity disorder, predominantly inattentive type
--- NOTE | 2023-07-27 15:43 | Psychiatric Progress Note ---
Date of Service July 27, 2023 Impression / Recommendations Impression Solis is a 23 yo man who currently lives in [place] with his parents and younger sister, has a history of ASD, PIPPA, MDD, ADHD, HTN and was admitted on 07/23/23 05:07 on a 201 voluntary commitment for SI with plan to hang himself. Diagnostically consistent with unspecified depressive disorder likely a combination of major depressive disorder with anxious distress and alcohol- induced depressive episode. He also meets criteria for alcohol use disorder given escalation in use in an attempt to treat his anxiety/stress symptoms and likely contributed to by his poor impulse control. He presents with flat affect, very poor insight, minimal eye contact and limited motivation to change his alcohol use all of which is concerning for high acute risk and for which inpatient hospitalization is deemed necessary for safety and stabilization, medication management, improved coping skills and establishment of further outpatient support. 07/27/23: Pt appears ambivalent about quitting alcohol and minimizes concerns. Tolerating naltrexone well and will increase to standard dose. Will follow-up with mother regarding progress. (1) Suicidal ideation: (2) Major depression, recurrent: (3) Alcohol use disorder: (4) Autism spectrum disorder: (5) ADHD: (6) Tobacco use: Plan 07/27/23: Increase Naltrexone 50mg. 07/26/23: Continue naltrexone 25mg with dinner, plan to increase tomorrow. 07/25/2023: -Start naltrexone 25mg with dinner 07/24/2023: Continue current medications and tx plan. Once outside of acute withdrawal period can explore option for naltrexone. 07/23/2023: The patient was admitted to the [facility] ([facility] inpatient mental health unit) on q15 min checks (behavioral with suicide precautions) for safety. The patient will participate in group, recreational, and milieu therapies and will be offered additional individual and family sessions as clinically appropriate. -Continue prior to admission medications: * Lamictal 150mg qd * Duloxetine 60mg qd * Adderall XR 15mg qd (if home supply can be provided, otherwise will utilize IR alternative in the hospital) -Start mirtazapine 7.5mg HS -Stop Wellbutrin 300mg qd -AWSS with thiamine, folic acid and ativan for scores -Gabapentin 100mg TID prn for anxiety/tightness/agitation Inventory Assets Strengths: supportive relationships, willing to get treatment Needs: safety and stabilization, medication adjustment, additional coping skills, increased outpatient services Suicide Risk Level Suicide Risk Level: Moderate (q15 min suicide checks) (SI with plan outside of the hospital, increased depression, poor insight, minimal coping skills, but mood now improving a bit, feels safe in the hospital and feels able to go to providers/RN/staff for support ) Suicide Risk Level Comments: High-Moderate due to severe depression with SI with plan prior to admission but feels safe in the hospital, able to safety contract and agrees to let nursing/staff know should they develop plan, intent or feel unable to remain safe. Risk Factors Assessment Do You Have Access To A Gun?: Yes (he thinks the ammunition is locked, may have access to parents guns) Protective Factors Assessment Employed: No Interval History Identifying Information SOLIS PEACOCK is a 23-year-old M who currently lives in [place] with his parents and younger sister, has a history of ASD, PIPPA, MDD, ADHD, HTN and was admitted on 07/23/23 05:07 on a 201 voluntary commitment for SI with plan to hang himself. Chief Complaint "[]". Review of Systems Sleep Information Total Hours of Sleep: 7 Sleep Comments: HS Remeron Meal Information Percent Meal Consumed - Breakfast: 100 Percent Meal Consumed - Lunch: 100 Percent Meal Consumed - Dinner: 100 Nutrition Comment: sleeping Subjective Subjective Patient was seen & assessed and interval progress reviewed with treatment team nursing and social work Overnight no acute events. Patient slept well however endorses still feeling "tired". Looking forward to going back home and mari. When asked about whether he wants to continue drinking alcohol he says yes. Demonstrates poor engagement in the interview often replying "I do not know". He endorses suicidal ideation. Unable to answer further questions regarding this. Physical Exam Mental Examination Appearance: Unkempt Eye Contact: Avoids Eye Contact Motor Behavior: Slowed Speech: Soft and Delayed Mood: Sad Affect: Flat, Sad and Withdrawn Thought Process: Slowed Thinking Hallucinations: None Insight: Poor Judgement: Poor Vital Signs (Past 24 Hours) Last Vital Signs Temp 36.6 C 07/27/23 06:34 Pulse 96 H 07/27/23 06:35 Resp 16 07/27/23 06:34 BP 93/60 L 07/27/23 06:35 Pulse Ox 96 07/24/23 18:35 O2 Del Method Room Air 07/24/23 18:35 Results & Data ([facility]) Current Inpatient Medications Current Inpatient Medications: Current Inpatient Medications Acetaminophen (Acetaminophen 325 Mg Tab) 650 mg PO Q4H PRN PRN Reason: Headache or Minor Fever Stop: 08/22/23 06:59 Al Hydrox/Mg Hydrox/Simethicone (Aluminum/Magnesium Susp 30 Ml Udc) 30 ml PO Q4H PRN PRN Reason: GI Upset Stop: 08/22/23 06:59 Amphetamine/Dextroamphetamine (Dextroamphetamine/Amphetamine Er 5 Mg Cap) 15 mg PO QAM DARIANA Stop: 08/06/23 11:44 Last Admin: 07/27/23 09:07 Dose: 15 mg Bismuth Subsalicylate (Bismuth Subsalicylate Liqd 236 Ml) 15 ml PO PRN PRN PRN Reason: Loose Stool Stop: 08/22/23 06:59 Duloxetine HCl (Duloxetine Hcl 60 Mg Cap) 60 mg PO DAILY DARIANA Stop: 08/22/23 10:59 Last Admin: 07/27/23 09:07 Dose: 60 mg Gabapentin (Gabapentin 100 Mg Cap) 100 mg PO TID PRN PRN Reason: Agitation/Tightness Stop: 08/22/23 13:59 Last Admin: 07/25/23 23:10 Dose: 100 mg Hydroxyzine HCl (Hydroxyzine Hcl 25 Mg Tab) 50 mg PO HSZ PRN PRN Reason: Insomnia Stop: 08/22/23 06:59 Last Admin: 07/25/23 22:59 Dose: 50 mg Hydroxyzine HCl (Hydroxyzine Hcl 25 Mg Tab) 25 mg PO Q4H PRN PRN Reason: Anxiety Stop: 08/22/23 06:59 Lamotrigine (Lamotrigine 100 Mg Tab) 150 mg PO DAILY DARIANA; Protocol Stop: 08/23/23 08:59 Last Admin: 07/27/23 09:07 Dose: 150 mg Magnesium Hydroxide (Magnesium Hydroxide Susp 30 Ml Udc) 30 ml PO DAILY PRN PRN Reason: Constipation Stop: 08/22/23 06:59 Mirtazapine (Mirtazapine Tab 15 Mg Tab) 7.5 mg PO HS DARIANA Stop: 08/22/23 21:59 Last Admin: 07/26/23 21:34 Dose: 7.5 mg Miscellaneous (Remove Nicoderm Patch) 1 each N/A DAILY@0859 [facility] Stop: 08/22/23 08:58 Last Admin: 07/27/23 09:06 Dose: 1 each Naltrexone HCl (Naltrexone Hcl 50 Mg Tab) 25 mg PO DAILYBD [facility] Stop: 08/24/23 17:14 Last Admin: 07/26/23 17:09 Dose: 25 mg Nicotine (Nicotine 21 Mg/24 Hr Tdsy) 1 patch TD QAM [facility] Stop: 08/22/23 08:59 Last Admin: 07/27/23 09:12 Dose: 1 patch Nicotine Polacrilex (Nicotine Polacrilex 2 Mg Gum) 2 piece MT PRN PRN PRN Reason: cravings Stop: 08/22/23 13:16 Last Admin: 07/24/23 19:03 Dose: 2 piece Sodium Chloride (Sodium Chloride 0.65% Na Soln 45 Ml ([place])) 1 - 2 sprays NA PRN PRN PRN Reason: Nasal Dryness/Congestion Stop: 08/22/23 06:59 Mental Health & Subst Abuse Tx Psychiatrist Name of Psychiatrist: Chantale Cisse Date Of Appointment With Psychiatric Provider: 08/04/2023 Time of Appointment with Psychiatrist: 2:30 pm Therapist Name of Therapist: Does not want one Date of Therapist Appointment: uncertain Binding Printer Name of Binding Printer: Misbah colvin [place] Date of Appointment with Binding Printer: 07/31/23 Time of Appointment with Binding Printer: 3:00 pm Post Discharge Appointments Primary Care Physician Name Of Family Doctor/PCP: Dr. Amaral (2) Major depression, recurrent Active/Remission status: in partial remission Qualified Code(s): F33.41 - Major depressive disorder, recurrent, in partial remission (5) ADHD Attention deficit-hyperactivity disorder type: predominantly inattentive Qualified Code(s): F90.0 - Attention-deficit hyperactivity disorder, predominantly inattentive type
--- NOTE | 2023-07-28 10:59 | Discharge Summary ---
Date of Service July 28, 2023 History of Present Illness Solis presents for psychiatric admission for worsening depression and SI with plan of hanging himself. He's not sure why these thoughts came on but he started to feel depressed "a few days ago". He reports symptoms of tearfulness, low energy, anhedonia, decreased motivation, self-guilt, hopelessness, decreased appetite (drinks a lot of caffeine and smokes a lot of cigarettes so only eats about once per day), and shifted sleep cycle of sleeping much of the day and up all night. He denies anxiety as a current issue. Feels rather he deals with "stress" "but I'm not sure where it's from", he describes that his muscles "tighten up" and "I get irritable" and that "my skin feels tight". He is currently prescribed psychiatric medications: Wellbutrin ("it's been awhile", feels it helps), Adderall XR (helps a lot, has some loss of appetite), duloxetine (not sure how he's been on this, thinks it may help), lamictal (not sure if this helps, denies any side effects). Psychiatric ROS notable for no current nor history of symptoms of gallo, psycho sis, PTSD, OCD nor eating disorder. Self-harmed once in Dec via cutting. Physical Exam Mental Examination Appearance: Unkempt (took shower today) Eye Contact: Avoids Eye Contact Motor Behavior: Slowed Speech: Soft and Delayed Mood: Calm Affect: Flat and Withdrawn Thought Process: Slowed Thinking Hallucinations: None Insight: Poor Judgement: Poor Vital Signs (Past 24 Hours) Last Vital Signs Temp 36.4 C L 07/28/23 09:40 Pulse 86 07/28/23 09:40 Resp 16 07/28/23 09:40 BP 108/76 07/28/23 09:40 Pulse Ox 96 07/28/23 09:40 O2 Del Method Room Air 07/24/23 18:35 Principal Diagnosis Autism Spectrum Disorder Psychiatric Data See daily stay summary. In short, safety was maintained and the patient was cooperative with care. Medication changes included starting Naltrexone 50mg daily for alcohol abuse, d/c home welbutrin and they tolerated this well. A family session was held and safety plan was completed prior to discharge. Day of Discharge Assessment Today the patient voices readiness for discharge. They note improvement in mood and deny thoughts to harm self or others. Thoughts remain organized and they are improved from admission. There is no evidence of psychosis. They agree to take mediations as prescribed and keep follow-up appointments. They are stable for discharge to outpatient level of care. To follow-up with PCP for liver functions tests (naltrexone) Transition of Care Transition Of Care Record: was reviewed with the patient Advance Directives Advance Directives Information Provided: No Advance Directives: No Mental Health Advance Directive: No Advance Directives on File: No Living Will: No Power of Health Practice Manager: No Advance Directives Reason:: Declines as Mental Health Visit. Suicide Risk Level Suicide Risk Level Comments: High-Moderate due to severe depression with SI with plan prior to admission but feels safe in the hospital, able to safety contract and agrees to let nursing/staff know should they develop plan, intent or feel unable to remain safe. Risk Factors Assessment Do You Have Access To A Gun?: Yes (he thinks the ammunition is locked, may have access to parents guns) Protective Factors Assessment Employed: No Discharge Data Lab Results 07/23/23 07/23/23 02:25 Unknown WBC 8.34 RBC 5.45 Hgb 17.3 Hct 48.3 MCV 88.6 MCH 31.7 MCHC 35.8 RDW Std Deviation 35.9 L RDW Coeff of [place] 11.2 L Plt Count 289 MPV 9.4 Immature Gran % (Auto) 0.4 Neut % (Auto) 69.9 Lymph % (Auto) 21.7 [place] % (Auto) 5.0 Eos % (Auto) 2.4 Baso % (Auto) 0.6 Neut # (Auto) 5.83 Lymph # (Auto) 1.81 [place] # (Auto) 0.42 Eos # (Auto) 0.20 Baso # (Auto) 0.05 Immature Gran # (Auto) 0.03 Sodium 139 Potassium 3.5 Chloride 104 Carbon Dioxide 28 Anion Gap 7 BUN 12 Creatinine 1.01 Est Cr Clr Drug Dosing 119.5 Est GFR ( Amer) 122.7 Est GFR (Non-Af Amer) 105.8 BUN/Creatinine Ratio 11.9 Glucose 85 Calcium 9.7 Total Bilirubin 0.5 AST 20 ALT 23 Alkaline Phosphatase 86 Total Protein 7.8 Albumin 5.2 H Globulin 2.6 Albumin/Globulin Ratio 2.0 TSH 2.098 Urine Color Yellow Urine Appearance Clear Urine pH 7.0 Ur Specific Reading 1.021 Urine Protein Negative Urine Glucose (UA) Negative Urine Ketones Negative Urine Blood Negative Urine Nitrite Negative Urine Bilirubin Negative Urine Urobilinogen Negative Ur Leukocyte Esterase Negative Salicylates < 3.0 L Urine Opiates Screen Neg Ur Methadone, Qual Neg Acetaminophen < 3 L Urine Barbiturates Neg Ur Phencyclidine (PCP) Neg U Amphetamin/Meth Scrn Pos H MDMA (Ecstasy) Screen Pos H U Benzodiazepines Scrn Neg Ur Cocaine Metabolite Neg U Marijuana (THC) Screen Neg Ethyl Alcohol mg/dL < 10.0 SARS-CoV-2, RNA, NAAT NEGATIVE Hospital Course (1) Autism spectrum disorder: (2) Major depression, recurrent: resume Duloxetine, lamictal (3) Alcohol use disorder: on Naltrexone (4) ADHD: resume Adderal (5) Tobacco use: (6) Suicidal ideation: resolved Plan 07/27/23: Increase Naltrexone 50mg with dinner. 07/26/23: Continue naltrexone 25mg with dinner, plan to increase tomorrow. 07/25/2023: -Start naltrexone 25mg with dinner 07/24/2023: Continue current medications and tx plan. Once outside of acute withdrawal period can explore option for naltrexone. 07/23/2023: The patient was admitted to the [facility]) on q15 min checks (behavioral with suicide precautions) for safety. The patient will participate in group, recreational, and milieu therapies and will be offered additional individual and family sessions as clinically appropriate. -Continue prior to admission medications: * Lamictal 150mg qd * Duloxetine 60mg qd * Adderall XR 15mg qd (if home supply can be provided, otherwise will utilize IR alternative in the hospital) -Start mirtazapine 7.5mg HS -Stop Wellbutrin 300mg qd -AWSS with thiamine, folic acid and ativan for scores -Gabapentin 100mg TID prn for anxiety/tightness/agitation Mental Health & Subst Abuse Tx Psychiatrist Name of Psychiatrist: Chantale Cisse Date Of Appointment With Psychiatric Provider: 08/04/2023 Time of Appointment with Psychiatrist: 2:30 pm Psychiatrist Release of Information: Obtained, Reviewed and Signed Therapist Name of Therapist: Does not want one Date of Therapist Appointment: uncertain Unified Communications Architect Name of Unified Communications Architect: Misbah from [place] Date of Appointment with Unified Communications Architect: 07/31/23 Time of Appointment with Unified Communications Architect: 3:00 pm Post Discharge Appointments Primary Care Physician Name Of Family Doctor/PCP: Dr. Amaral [facility] Date of Future Appointment with PCP: 08/01/23 Time of Appointment with PCP: 11:30 Provider Appointment Comment: Need LFT labs Primary Care Release of Information: Obtained, Reviewed and Signed Home Health Services Home Health Services:: None Discharge Plan Discharge Items Patient Disposition: Home - Self-Care Reason For Visit: MAJOR DEPRESSIVE DISORDER Discharge Diagnosis: Major depression, recurrent: Alcohol abuse Autism spectrum disorder: ADHD: Tobacco use: Activity: Resume your previous activity Non-emergency contact: Primary Care Provider and Psychiatrist Call non-emergency contact if: you have any medication questions and your symptoms worsen Follow-up/Referrals: Brant Amaral, [Primary Care Provider] - Diet: Regular Addtl Attending Provider Instructions: -Continue Naltrexone 50mg at bedtime. -Follow-up with PCP in a month. Get blood work: Liver function tests -Take Mirtazapine 7.5mg HS NEEDED for sleep -Continue Adderal, Cymbalta, Lamictal Pending Studies at Discharge: No Stand-Alone Forms: My JOOR, Smoking Cessation Medications and DC Order Prescriptions: New naltrexone 50 mg tablet 50 mg PO .daily bd Qty: 30 1RF mirtazapine 7.5 mg tablet 7.5 mg PO HS PRN (Reason: insomnia) Qty: 30 0RF nicotine 14 mg/24 hr patch 24 hour 1 patch transdermal DAILY Qty: 1 0RF Continued fluticasone propion-salmeterol [Advair HFA] 45-21 mcg/actuation HFA aerosol inhaler 2 puff inhalation BID Qty: 12 2RF lamotrigine [Lamictal] 25 mg tablet 150 mg DAILY dextroamphetamine-amphetamine [Adderall XR] 15 mg capsule,extended release 24hr 15 mg PO QAM Qty: 30 0RF duloxetine 60 mg Capsule,Delayed Release(Dr/Ec) 60 mg PO DAILY Qty: 30 0RF No Action bupropion HCl 300 mg Tablet Extended Release 24 Hr 300 mg PO QAM Qty: 30 0RF Discharge Orders: Discharge Order (Routine); Ordered 07/28/23 Ordered By: Emanuel Goyal Admission Data Admit Date/Time: 07/23/23 05:07 Attending Provider: Emanuel Goyal Admit Provider: Fátima Beauchamp Primary Care Provider: Brant Amaral Other Interventions: Discharge Summary Assessment (RN) Last Done: 07/28/23 09:40 [place] [address] D/C day mgmt > 30 min Patient Type Established History Expanded Problem Focused Exam Expanded Problem Focused Medical Decision Making Moderate Complexity Diagnoses Autism spectrum disorder F84.0 Recurrent major depressive disorder, in partial remission F33.41 Active/Remission status: in partial remission Alcohol use disorder F10.90 Attention deficit hyperactivity disorder (ADHD), predominantly inattentive type F90.0 Attention deficit-hyperactivity disorder type: predominantly inattentive Tobacco use Z72.0 Suicidal ideation R45.851 Time Spent (min) 35
[2023-07-28 15:59] LABS: Amphetamine Urine, Confirm 3260 ng/mL (<250); MDA negative; MDEA negative; MDMA (Ecstasy) Urine, Confirm negative; Methamphetamine, Ur Confirm NEGATIVE ng/mL (<250)
[2023-07-28] MEDS ORDERED: NALTREXONE HCL 50 MG TAB PO SCH (17:15)
== END 2023-07-28 10:32 | disposition home or self-care (01) | DRG 884 ==
LOC: ED 02:03 → 3S 05:07 → SUATTDRO 05:07 → 3S 05:21